=== PATIENT | male | born 2000 | race Caucasian/White ===

== ENCOUNTER 2022-10-26 19:04 | Inpatient (IN) ==
[2022-10-26] MEDS ORDERED: ONDANSETRON INJ 2 MG/ML 2 ML VIAL IV STA ×2 (21:41→22:57)
[2022-10-26 22:01] LABS: Hematocrit (blood only) 51.9 % (42.0-52.0); Hemoglobin 18.2 g/dl (14.0-18.0); Mean Corpuscular Hemoglobin 31.7 pg (25.0-34.0); Mean Corpuscular Hgb Conc 35.1 g/dL (32.0-36.0); Mean Corpuscular Volume 90.4 fL (80.0-100.0); Mean Platelet Volume 10.3 fL (9.4-12.4); Platelet Count 177 K/uL (130-400); RDW Coefficient of Variation 12.6 % (11.5-14.5); RDW Standard Deviation 41.6 fL (36.4-46.3); Red Blood Count 5.74 M/uL (4.70-6.10); White Blood Count 22.42 K/ul (4.8-10.8)
[2022-10-26 22:23] LABS: Basophils # (auto) 0.02 K/uL (0-0.2); Basophils % (auto) 0.1 %; Immature Granulocytes # (auto) 0.21 K/uL (0.01-0.20); Immature Granulocytes % (auto) 0.9 %; Lymphocytes # (auto) 0.45 K/uL (1.2-3.4); Monocytes # (auto) 0.76 K/uL (0.11-0.59); Monocytes % (auto) 3.4 %; Neutrophils # (auto) 20.98 K/uL (1.40-6.50); Neutrophils % (auto) 93.6 %
[2022-10-26 22:42] LABS: Alanine Aminotransferase 23 U/L (7-52); Albumin Level 4.5 gm/dl (3.4-5.0); Alkaline Phosphatase 66 U/L (34-104); BUN Creatinine Ratio 15.7 (10-20); Bilirubin,Total 1.5 mg/dl (0.2-1.0); Blood Urea Nitrogen 24 mg/dl (6-23); Calcium 9.9 mg/dl (8.6-10.3); Carbon Dioxide 25 mmol/L (21-32); Chloride 92 mmol/L (98-107); Est GFR (African American) 74.8 ml/min; Est GFR (Non-African American) 64.5 ml/min; Globulin 4.4 gm/dl (2.5-4.0); Glucose 158 mg/dl (70-99(Fasting)); Lipase 11 U/L (11-82); Total Protein 8.9 gm/dl (6.0-8.3)
[2022-10-26] MEDS ORDERED: FAMOTIDINE 20MG IV PUSH 20 MG/5 ML SYR IV STA (22:57)
[2022-10-26] MEDS ORDERED: SODIUM CHLORIDE 0.9% 1000ML 1,000 ML IV ONE ×2 (22:57→22:58)
[2022-10-26] MEDS ORDERED: OPTIRAY 350 100ml IV ONE (23:23)
--- NOTE | 2022-10-26 23:25 | Emergency Department Note ---
History of Present Illness General Chief complaint: Abdominal Pain Stated complaint: NAUSEA,VOMITING BLOOD,ABDOMINAL PAIN Time Seen by Provider: 10/26/22 22:35 History of Present Illness This 22-year-old student presents to the ER complaint of nausea vomiting and abdominal pain for the past day. Patient denies chest pain, dyspnea, fevers, diarrhea, cough, congestion. He states he had a little bit of red stringy blood in it but no cupfuls. No prior abdominal surgeries. Home Medications Medication Instructions Recorded Confirmed Type methylphenidate HCl 54 mg 54 mg PO QAM 10/26/22 10/26/22 History tablet,extended release 24 hr (Concerta) omeprazole magnesium 20 mg 20 mg PO QAM 10/26/22 10/26/22 History tablet,delayed release Allergies Allergy/AdvReac Type Severity Reaction Status Date / Time pollen extracts Allergy Intermediate sneezy,whee Verified 10/26/22 23:02 zy Past Med/Surg History Social History Smoking Status: Never smoker Preferred Language: Qatari Feels Safe at Home: Yes Review of Systems A total of 10 systems reviewed and were otherwise negative Physical Exam Vital Signs Vital Signs - 24 hr 10/26/22 19:30 10/26/22 23:41 10/27/22 03:00 Temperature 36.3 C L Temperature Source Temporal Artery Scan Pulse Rate 121 H Pulse Rate [Finger] 100 H 100 H Respiratory Rate 19 16 16 Respiratory Effort / Characteristics Non-Labored Non-Labored Respiratory Depth Normal Blood Pressure 126/80 Blood Pressure [Right Arm] 129/82 127/88 Blood Pressure Mean 95 Blood Pressure Mean [Right Arm] 97 101 Pulse Oximetry 96 99 96 Oxygen Delivery Method Room Air Room Air Sepsis Recent Fever Within 48 Hours No Sepsis New/Unexplained Change in Mental Status N/A Sepsis Action Taken by Nursing No Action Required VITALS: Vitals are noted on the nurse's note and reviewed by myself. Vital signs reviewed GENERAL: Pleasant gentleman, in no acute distress, nondiaphoretic, well- developed well-nourished. SKIN: The skin was without rashes, erythema, edema, or bruising. There is no tenting of the skin. Capillary reflex less than 2 seconds. HEAD: Normocephalic atraumatic. EARS: External auditory canals clear, tympanic membranes pearly kumar without erythema or effusion bilaterally. EYES: Pupils equal round and reactive to light and accommodation. Conjunctivae without injection, sclerae without icterus. Extraocular movements intact. NOSE: Patent, turbinates without inflammation or discharge. MOUTH: Mucous membranes mildly dry. Moist. Pharynx without erythema or exudate. Uvula midline. Airway patent. Tongue does not deviate. NECK: Supple without nuchal rigidity. No lymphadenopathy. No thyromegaly. Cervical spine is nontender. No JVD. HEART: Regular rate and rhythm LUNGS: Clear to auscultation bilaterally without wheezes, rales or rhonchi. No retractions or accessory muscle use. ABDOMEN: Positive bowel sounds x 4. Normal tympanic percussion. Soft, tender lower abdomen, without masses or organomegaly. Hightower sign negative. No guarding or rebound tenderness. No CVA tenderness MUSCULOSKELETAL: No muscle atrophy, erythema, or edema noted. NEURO: Patient was alert and oriented to person place and time. Normal sensation to light and sharp touch. No focal neurological deficits. Course Administered Medications Discontinued Medications Sodium Chloride (Nss 1000ml) 1,000 mls @ 999 mls/hr IV .Q1H1M ONE Stop: 10/26/22 23:57 Last Infusion: 10/27/22 00:49 Dose: 0 mls/hr Documented By: Admin: 10/26/22 23:11 Dose: 999 mls/hr Documented By: RAY Famotidine (Pepcid 20mg Iv Push) 20 mg in 5 mls @ 2.5 mls/min IV NOW STA Stop: 10/26/22 22:58 Last Admin: 10/26/22 23:11 Dose: 2.5 mls/min Documented By: RAY Sodium Chloride (Nss 1000ml) 1,000 mls @ 999 mls/hr IV .Q1H1M ONE Stop: 10/26/22 23:58 Last Infusion: 10/27/22 01:51 Dose: 0 mls/hr Documented By: Admin: 10/27/22 00:49 Dose: 999 mls/hr Documented By: RAY Ioversol (Optiray 350 100ml) 100 ml IV ONCE ONE Stop: 10/26/22 23:24 Last Admin: 10/26/22 23:23 Dose: 86 ml Documented By: MACIEJ Lorazepam (Lorazepam 2 Mg/1 Ml Vial) 1 mg IV NOW STA Stop: 10/27/22 01:50 Last Admin: 10/27/22 01:55 Dose: 1 mg Documented By: RAY Ondansetron HCl (Ondansetron Inj 2 Mg/Ml 2 Ml Vial) 4 mg IV NOW STA Stop: 10/26/22 21:42 Last Admin: 10/26/22 21:47 Dose: 4 mg Documented By: GENE Ondansetron HCl (Ondansetron Inj 2 Mg/Ml 2 Ml Vial) 4 mg IV NOW STA Stop: 10/26/22 22:58 Last Admin: 10/26/22 23:11 Dose: 4 mg Documented By: RAY Medical Decision Making Medical Records Attestation: I reviewed the patient's medical records. Home Medications Current Medication List: was personally reviewed by me Laboratory Data Attestation: I reviewed the patient's lab results. 10/26/22 21:35 10/26/22 21:35 Lab Results 10/26/22 10/26/22 10/26/22 Range/Units 21:35 21:35 22:56 WBC 22.42 H (4.8-10.8) K/ul RBC 5.74 (4.70-6.10) M/uL Hgb 18.2 H (14.0-18.0) g/dl Hct 51.9 (42.0-52.0) % MCV 90.4 (80.0-100.0) fL MCH 31.7 (25.0-34.0) pg MCHC 35.1 (32.0-36.0) g/dL RDW Std Deviation 41.6 (36.4-46.3) fL RDW Coeff of [place] 12.6 (11.5-14.5) % Plt Count 177 (130-400) K/uL MPV 10.3 (9.4-12.4) fL Immature Gran % (Auto) 0.9 % Neut % (Auto) 93.6 % Lymph % (Auto) 2.0 % [place] % (Auto) 3.4 % Eos % (Auto) 0.0 % Baso % (Auto) 0.1 % Neut # (Auto) 20.98 H (1.40-6.50) K/uL Lymph # (Auto) 0.45 L (1.2-3.4) K/uL Liberty # (Auto) 0.76 H (0.11-0.59) K/uL Eos # (Auto) 0.00 (0-0.50) K/uL Baso # (Auto) 0.02 (0-0.2) K/uL Immature Gran # (Auto) 0.21 H (0.01-0.20) K/uL Sodium TNP 133 L Potassium TNP 4.2 Chloride 92 L (98-107) mmol/L Carbon Dioxide 25 (21-32) mmol/L Anion Gap TNP BUN 24 H (6-23) mg/dl Creatinine 1.53 H (0.6-1.4) mg/dl Est Cr Clr Drug Dosing 82.0 ml/min Est GFR ( Amer) 74.8 ml/min Est GFR (Non-Af Amer) 64.5 ml/min BUN/Creatinine Ratio 15.7 (10-20) Glucose 158 H (70-99(Fasting)) mg/dl Calcium 9.9 (8.6-10.3) mg/dl Total Bilirubin 1.5 H (0.2-1.0) mg/dl AST TNP 24 ALT 23 (7-52) U/L Alkaline Phosphatase 66 (34-104) U/L Total Protein 8.9 H (6.0-8.3) gm/dl Albumin 4.5 (3.4-5.0) gm/dl Globulin 4.4 H (2.5-4.0) gm/dl Albumin/Globulin Ratio 1.0 (0.9-2) Lipase 11 (11-82) U/L Adenovirus (PCR) (NotDetected) B. pertussis DNA (PCR) (NotDetected) B.parapertussis DNA PCR (NotDetected) C. pneumoniae DNA (PCR) (NotDetected) Coronavirus OC43 (PCR) (NotDetected) Coronavirus HKU1 (PCR) (NotDetected) Coronavirus 229E (PCR) (NotDetected) SARS-CoV-2 (PCR) (NotDetected) Coronavirus NL63 (PCR) (NotDetected) Human Metapneumovir PCR (NotDetected) Influenza Type A (PCR) (NotDetected) Influenza Type B (PCR) (NotDetected) M. pneumoniae (PCR) (NotDetected) Parainfluenza 1 (PCR) (NotDetected) Parainfluenza 2 (PCR) (NotDetected) Parainfluenza 3 (PCR) (NotDetected) Parainfluenza 4 (PCR) (NotDetected) RSV (PCR) (NotDetected) Entero/Rhino (PCR) (NotDetected) 10/26/22 Range/Units 23:13 WBC (4.8-10.8) K/ul RBC (4.70-6.10) M/uL Hgb (14.0-18.0) g/dl Hct (42.0-52.0) % MCV (80.0-100.0) fL MCH (25.0-34.0) pg MCHC (32.0-36.0) g/dL RDW Std Deviation (36.4-46.3) fL RDW Coeff of [place] (11.5-14.5) % Plt Count (130-400) K/uL MPV (9.4-12.4) fL Immature Gran % (Auto) % Neut % (Auto) % Lymph % (Auto) % Liberty % (Auto) % Eos % (Auto) % Baso % (Auto) % Neut # (Auto) (1.40-6.50) K/uL Lymph # (Auto) (1.2-3.4) K/uL Liberty # (Auto) (0.11-0.59) K/uL Eos # (Auto) (0-0.50) K/uL Baso # (Auto) (0-0.2) K/uL Immature Gran # (Auto) (0.01-0.20) K/uL Sodium Potassium Chloride (98-107) mmol/L Carbon Dioxide (21-32) mmol/L Anion Gap BUN (6-23) mg/dl Creatinine (0.6-1.4) mg/dl Est Cr Clr Drug Dosing ml/min Est GFR ( Amer) ml/min Est GFR (Non-Af Amer) ml/min BUN/Creatinine Ratio (10-20) Glucose (70-99(Fasting)) mg/dl Calcium (8.6-10.3) mg/dl Total Bilirubin (0.2-1.0) mg/dl AST ALT (7-52) U/L Alkaline Phosphatase (34-104) U/L Total Protein (6.0-8.3) gm/dl Albumin (3.4-5.0) gm/dl Globulin (2.5-4.0) gm/dl Albumin/Globulin Ratio (0.9-2) Lipase (11-82) U/L Adenovirus (PCR) Not Detected (NotDetected) B. pertussis DNA (PCR) Not Detected (NotDetected) B.parapertussis DNA PCR Not Detected (NotDetected) C. pneumoniae DNA (PCR) Not Detected (NotDetected) Coronavirus OC43 (PCR) Not Detected (NotDetected) Coronavirus HKU1 (PCR) Not Detected (NotDetected) Coronavirus 229E (PCR) Not Detected (NotDetected) SARS-CoV-2 (PCR) Not Detected (NotDetected) Coronavirus NL63 (PCR) Not Detected (NotDetected) Human Metapneumovir PCR Not Detected (NotDetected) Influenza Type A (PCR) Not Detected (NotDetected) Influenza Type B (PCR) Not Detected (NotDetected) M. pneumoniae (PCR) Not Detected (NotDetected) Parainfluenza 1 (PCR) Not Detected (NotDetected) Parainfluenza 2 (PCR) Not Detected (NotDetected) Parainfluenza 3 (PCR) Not Detected (NotDetected) Parainfluenza 4 (PCR) Not Detected (NotDetected) RSV (PCR) Not Detected (NotDetected) Entero/Rhino (PCR) DETECTED A* (NotDetected) Imaging Data Attestation: I personally reviewed and interpreted this imaging study as follows: Radiologist's Impression: Abdomen/Pelvis CT 10/26/22 22:57 Exam(s): CT ABDOMEN + PELVIS With Contrast IV Amt: 86 ML OPTIRAY 350 EXAM: CT Abdomen and Pelvis With Intravenous Contrast CLINICAL HISTORY: rlq pain. TECHNIQUE: Axial computed tomography images of the abdomen and pelvis with intravenous contrast. CTDI is 7.04 mGy and DLP is 373.95 mGy-cm. Automated exposure control was utilized for the study. A dose lowering technique was utilized adhering to the principles of ALARA. CONTRAST: Patient received 86 ML OPTIRAY 350 of IV contrast COMPARISON: No relevant prior studies available. FINDINGS: Lung bases: Unremarkable. No mass. No consolidation. ABDOMEN: Liver: Hepatic steatosis. Gallbladder and bile ducts: Unremarkable. No calcified stones. No ductal dilation. Pancreas: Unremarkable. No mass. No ductal dilation. Spleen: Unremarkable. No splenomegaly. Adrenals: Unremarkable. No mass. Kidneys and ureters: Unremarkable. No solid mass. No hydronephrosis. Stomach and bowel: There is abnormal mucosal thickening of the stomach, despite partial decompression. No evidence for gastric obstruction. In addition, there is abnormal mucosal thickening of the colon which is predominantly decompressed. No evidence for bowel obstruction. PELVIS: Appendix: 6 mm appendicolith noted in the proximal appendix the appendix distal to the appendicolith is within normal limits measuring up to 6 mm. No obvious periappendiceal fat stranding, accounting for respiratory artifact in this region. Bladder: Unremarkable. No mass. Reproductive: Unremarkable as visualized. ABDOMEN and PELVIS: Intraperitoneal space: Unremarkable. No free air. No significant fluid collection. Bones/joints: No acute fracture. No dislocation. Soft tissues: Unremarkable. Vasculature: Unremarkable. No abdominal aortic aneurysm. Lymph nodes: Unremarkable. No enlarged lymph nodes. IMPRESSION: 1. 6 mm appendicolith noted in the proximal appendix the appendix distal to the appendicolith is within normal limits measuring up to 6 mm. No obvious periappendiceal fat stranding, accounting for respiratory artifact in this region. Suspect normal variation. Please correlate with clinical symptoms. 2. There is abnormal mucosal thickening of the stomach, despite partial decompression. No evidence for gastric obstruction. Findings are most consistent with gastritis. 3. In addition, there is abnormal mucosal thickening of the colon which is predominantly decompressed. No evidence for bowel obstruction. Coexisting inflammatory infectious colitis are suspected. No free intraperitoneal fluid or pneumoperitoneum. Electronically signed by: Allen Russo MD 10/27/22 01:01 AM [facility] Narrative Prior records/ancillary studies reviewed. Triage Nursing notes reviewed. Additional history obtained from nursing The patient's history was concerning for nausea, vomiting and abdominal pain. Differential diagnosis: Etiologies such as gastroenteritis, food borne illness, infections, appen dicitis, diverticulitis, inflammatory bowel disease, obstruction, GI bleed, biliary pathology, as well as others were entertained. Physical examination findings: As above. Abdominal examination revealed tender lower abdomen. Vital signs reviewed and revealed mildly tachycardic. ER treatment provided: IV hydration 2 L NSS. Zofran and Pepcid, Protonix and Ativan were ordered On reassessment the patient felt better. Patient was tolerating p.o. intake. Diagnostics interpretation by me: The labs Independently Interpreted by myself revealed leukocytosis Minimally elevated creatinine Imaging studies: CT was reviewed and surgery did evaluate the patient states patient has not had appendicitis and recommends medical admission Consultation: A consultation was placed with the hospitalist. The case was discussed and diagnostics were reviewed. The patient was evaluated in the ER for further treatment. This appears to be consistent with nausea and vomiting with hematemesis acute kidney injury dehydration with colitis. Surgery and medicine were consulted. They did evaluate the patient. Patient will be admitted to the medical service. Patient is agreeable. Labs and diagnostics were independent interpreted by myself. Patient was medicated as above. By the evaluation outlined above emergent etiologies such as appendicitis, diverticulitis, obstruction, cardiac sources, mesenteric ischemia, aortic pathology, renal colic, PUD, biliary pathology, UTI, as well as others were deemed relatively unlikely. The pt informed about the findings as listed above. All questions were answered and pleased with the treatment. The chart was completed utilizing [employer] Speech voice recognition software. Grammatical errors, random word insertions, pronoun errors, and incomplete sentences are an occassional consequence of this system due to software limitations, ambient noise, and hardware issues. Any formal questions or concerns about the content, text, or information contained within the body of this dictation should be directly addressed to the physician advertising sales assistant for clarification. Impression & Plan Acute kidney injury, Dehydration, Colitis, Hematemesis Discharge Plan Visit Data Chief Complaint: Abdominal Pain Stated Complaint: NAUSEA,VOMITING BLOOD,ABDOMINAL PAIN ED Provider: Seth Cole. ED Midlevel Provider: Mariola Obando Discharge Problem: Acute kidney injury, Dehydration, Colitis, Hematemesis Patient Disposition: Admitted As Inpatient Condition: Good Forms Stand Alone Forms: My [facility] Prescriptions Prescriptions: No Action methylphenidate HCl [Concerta] 54 mg Tablet Extended Release 24hr 54 mg PO QAM omeprazole magnesium 20 mg Tablet,Delayed Release (Dr/Ec) 20 mg PO QAM Referrals Referrals: PCP,NO [Physician] -
[2022-10-26 23:40] LABS: Potassium 4.2 mmol/L (3.5-5.1)
[2022-10-27 00:09] LABS: Adenovirus PCR Not Detected (NotDetected); Bordetella parapertussis PCR Not Detected (NotDetected); Bordetella pertussis PCR Not Detected (NotDetected); Chlamydia pneumoniae PCR Not Detected (NotDetected); Coronavirus 229E PCR Not Detected (NotDetected); Coronavirus CoV-2 (COVID19)PCR Not Detected (NotDetected); Coronavirus HKU1 PCR Not Detected (NotDetected); Coronavirus NL63 PCR Not Detected (NotDetected); Coronavirus OC43PCR Not Detected (NotDetected); Human Metapneumovirus PCR Not Detected (NotDetected); Influenza A PCR Not Detected (NotDetected); Influenza B PCR Not Detected (NotDetected); Mycoplasma pneumoniae PCR Not Detected (NotDetected); Parainfluenza Virus 1 PCR Not Detected (NotDetected); Parainfluenza Virus 2 PCR Not Detected (NotDetected); Parainfluenza Virus 3 PCR Not Detected (NotDetected); Parainfluenza Virus 4 PCR Not Detected (NotDetected); Respiratory Syncytial VirusPCR Not Detected (NotDetected)
[2022-10-27 00:10] LABS: Rhinovirus/Enterovirus PCR DETECTED (NotDetected)
--- NOTE | 2022-10-27 01:02 | CT Scan Report ---
Exam(s): CT ABDOMEN + PELVIS With Contrast IV Amt: 86 ML OPTIRAY 350 EXAM: CT Abdomen and Pelvis With Intravenous Contrast CLINICAL HISTORY: rlq pain. TECHNIQUE: Axial computed tomography images of the abdomen and pelvis with intravenous contrast. CTDI is 7.04 mGy and DLP is 373.95 mGy-cm. Automated exposure control was utilized for the study. A dose lowering technique was utilized adhering to the principles of ALARA. CONTRAST: Patient received 86 ML OPTIRAY 350 of IV contrast COMPARISON: No relevant prior studies available. FINDINGS: Lung bases: Unremarkable. No mass. No consolidation. ABDOMEN: Liver: Hepatic steatosis. Gallbladder and bile ducts: Unremarkable. No calcified stones. No ductal dilation. Pancreas: Unremarkable. No mass. No ductal dilation. Spleen: Unremarkable. No splenomegaly. Adrenals: Unremarkable. No mass. Kidneys and ureters: Unremarkable. No solid mass. No hydronephrosis. Stomach and bowel: There is abnormal mucosal thickening of the stomach, despite partial decompression. No evidence for gastric obstruction. In addition, there is abnormal mucosal thickening of the colon which is predominantly decompressed. No evidence for bowel obstruction. PELVIS: Appendix: 6 mm appendicolith noted in the proximal appendix the appendix distal to the appendicolith is within normal limits measuring up to 6 mm. No obvious periappendiceal fat stranding, accounting for respiratory artifact in this region. Bladder: Unremarkable. No mass. Reproductive: Unremarkable as visualized. ABDOMEN and PELVIS: Intraperitoneal space: Unremarkable. No free air. No significant fluid collection. Bones/joints: No acute fracture. No dislocation. Soft tissues: Unremarkable. Vasculature: Unremarkable. No abdominal aortic aneurysm. Lymph nodes: Unremarkable. No enlarged lymph nodes. IMPRESSION: 1. 6 mm appendicolith noted in the proximal appendix the appendix distal to the appendicolith is within normal limits measuring up to 6 mm. No obvious periappendiceal fat stranding, accounting for respiratory artifact in this region. Suspect normal variation. Please correlate with clinical symptoms. 2. There is abnormal mucosal thickening of the stomach, despite partial decompression. No evidence for gastric obstruction. Findings are most consistent with gastritis. 3. In addition, there is abnormal mucosal thickening of the colon which is predominantly decompressed. No evidence for bowel obstruction. Coexisting inflammatory infectious colitis are suspected. No free intraperitoneal fluid or pneumoperitoneum. Electronically signed by: Allen Russo MD 10/27/22 01:01 AM
[2022-10-27] MEDS ORDERED: LORazepam 2 MG/1 ML VIAL IV STA (01:49)
[2022-10-27] MEDS ORDERED: PANTOprazole 80 MG in DEXTROSE 5% 100 ML IV STA (01:49)
--- NOTE | 2022-10-27 02:05 | Surgery Consultation ---
Date of Consultation October 27, 2022 Assessment & Plan (1) Abdominal pain: General surgery has been asked to evaluate the patient for the possibility of appendicitis due to the appendicolith noted on CT scan. I reviewed the CT scan with my attending physician Dr. Gu. It is unlikely that the patient has appendicitis as there is no periappendiceal fat stranding which would likely be present with a leukocytosis noted on patient's labs. Thus, the appendicolith noted on CT scan is likely an incidental finding. In addition the patient does not have localized tenderness in the right lower quadrant. It does appear that the patient is suffering from a gastritis and possible colitis. In addition the patient has been noted to have some hematemesis. I discussed with the treating clinician in the emergency department and recommended patient be evaluated by the medical service for further evaluation of his gastritis/colitis/hematemesis. Please refer to their evaluation and documentation for further treatment plan. If there is any change in the patient's physical exam or clinical course that would suggest appendicitis we will intervene accordingly. Supervising Physician Co-Signing Physician Notes Case reviewed with Christian Britt overnight, imaging reviewed. 22-year-old male with nausea vomiting and abdominal discomfort. Unremarkable exam, just mild diffuse tenderness. WBC 22. CT with gastritis and possible colitis. Incidental appendicolith with 6 mm appendix with no periappendiceal inflammation. No evidence of appendicitis, would admit to medicine and treat for viral gastroenteritis. History of Present Illness Reason for Consultation: Abdominal pain History of Present Illness This is a 22-year-old male who presented to the emergency department secondary to abdominal pain. The patient notes that his pain began the evening of 10/25/2022. He notes that the pain was located in a bandlike fashion across his lower abdomen. He has had nausea and vomiting since that time. He does note that he has had some blood in his emesis. Patient did not check his temperature but he felt feverish. He notes that the pain is worse with walking and certain other movements. He does not identify any palliative factors other than lying still. As the patient notes that his symptoms are persistent and getting somewhat worse he presented to the emergency department. He denies any prior abdominal surgeries. He notes his last bowel movement was on 10/25/2022. He does note that he is currently being evaluated for irritable bowel syndrome as he has been having frequent and loose bowel movements recently. He does note that he is supposed to have a colonoscopy this summer. Since arrival to the hospital the patient has had labs and imaging which independent reviewed. A CT scan of his abdomen and pelvis showed the patient's appendix contained a 6 mm appendicolith in the proximal appendix. Distal to the appendicolith the appendix appeared to be within normal limits measuring only approximately 6 mm. There is no obvious periappendiceal fat stranding. The patient's stomach demonstrated abnormal mucosal thickening. There is no evidence of gastric outlet obstruction. There is also abnormal mucosal thickening noted of the colon. There is no evidence of bowel obstruction. I nterpreting radiologist felt that this was consistent with gastritis and a inflammatory infectious colitis. There is no intraperitoneal free air and no pneumoperitoneum. The patient's white blood cell count was 22.4. Patient's hemoglobin was 18.2. His hematocrit was normal. Platelet count was noted to be normal. Chemistry profile showed sodium is 133. Potassium is 4.2. BUN and creatinine were 24 and 1.5. Patient's total bilirubin is 1.5 with normal transaminases and a normal alkaline phosphatase. His lipase was nonelevated. Patient did have serologies checked and for numerous viruses which were negative for coronavirus. This was positive for entero-/rhinovirus. At the time of my interview the was in no distress but was examined experiencing nausea and vomiting. Allergies Allergy/AdvReac Type Severity Reaction Status Date / Time pollen extracts Allergy Intermediate sandrine,whee Verified 10/26/22 23:02 zy Home Medications Medication Instructions Recorded Confirmed Type methylphenidate HCl 54 mg 54 mg PO QAM 10/26/22 10/26/22 History tablet,extended release 24 hr (Concerta) omeprazole magnesium 20 mg 20 mg PO QAM 10/26/22 10/26/22 History tablet,delayed release Patient History Social History Smoking Status: Never smoker Hx Alcohol Use: Yes Alcohol type: beer and hard liquor Hx Substance Use: No Preferred Language: Divehi Communication Ability: Effective All Round Butcher Required: No Beliefs That Will Affect Care: None Current Living Situation: Other Current Living Situation Comment: [facility] Feels Safe at Home: Yes Safety Concerns: Feels Safe At This Time Assistive Devices: None Review of Systems Constitutional: + fever (Subjective fever) and + sweats; no chills Eyes: no eye pain Ear, Nose, Mouth, Throat: no hearing loss Respiratory: no cough and no dyspnea Cardiovascular: no chest pain Gastrointestinal: as per Subjective / HPI, + abdominal pain, + nausea, + vomiting and + hematemesis Genitourinary: no dysuria Musculoskeletal: no back pain Integumentary: no rash Neurologic: no localized weakness Physical Exam Constitutional: well developed and well nourished; no acute distress Eyes: no conjunctival abnormality ENMT: Ears: no hearing impairment and no external ear abnormality Oral mucosa appears dry Neck: trachea midline Respiratory: normal respiratory effort; no respiratory distress and no labored breathing No use of accessory muscles. No wheezing Cardiovascular: Rate/Rhythm: regular rate and regular rhythm Gastrointestinal (Abdomen): Patient's abdomen has mild to moderate distention. His abdomen is nonrigid. Bowel sounds are hypoactive. The patient has diffuse tenderness to palpation. Rebound tenderness is noted. Musculoskeletal: No calf tenderness. No lower extremity edema Skin: no rashes Neurologic: moves all extremities Psychiatric: A+Ox3, euthymic affect Results & Data Vital Signs (Past 12 Hours) Vital Signs Temp Pulse Pulse Resp BP BP Pulse Ox 10/26/22 23:41 100 H 16 129/82 99 10/26/22 19:30 36.3 C L 121 H 19 126/80 96 O2 Del Method 10/26/22 23:41 10/26/22 19:30 Room Air PG Care Time/CCT Total # of Minutes Spent Total Time Spent with Patient: Total time spent is greater than 50% in coordination of care (as documented) at patient's floor/unit and/or counseling patient: Coding Level of Care Code 44630 IN/OBS CONSULT LVL 5,80M Diagnoses Abdominal pain R10.9
--- NOTE | 2022-10-27 02:33 | History & Physical Report ---
Date of Service October 27, 2022 Assessment & Plan (1) Abdominal pain: Plan: 22M with no significant PMH who presents with abdominal pain + N/V x2 days. Abdominal pain -Labs on admission: WBC 22.42. Hgb 18.2. Na+ 133, BUN 24, Cr 1.53. T. bili 1.5. Entero/Rhino virus also detected on respiratory panel. -Abnormal mucosal thickening of the stomach consistent with gastritis, abnormal mucosal thickening of colon suspicious of inflammatory colitis. -6mm appendicolith noted in the proximal appendix but did not correlate with clinical symptoms. Suspect artifact. -Suspect infectious process, though inflammatory, ischemic etiology cannot be e xcluded at this time. * Admit to med surg. Made NPO. * mIVF LR @125 mL/hr * GI consult placed. Appreciate recs. * IV Protonix 40 mg bid * IV Zofran 4 mg q4h * Procalcitonin, ESR/CRP, GI PCR panel, KUB all pending. * Trend CMP Code: Full code Dispo: Med-Surg FEN/GI: NPO. LR DVT Prophylaxis: None PT/OT: No Consults: GI, Surgery History of Present Illness Primary Care Provider: [facility] Sam is a 22-year-old male with no past medical history who presents with nausea, vomiting, and lower abdominal pain x2 days. He reports being in his usual state of health beforehand. Abdominal pain worse with movement, hiccups. Denies fever, chills, headache, SOB, chest pain, or diarrhea. Sister endorses hematemesis initially but bilious since. In the ED, vitals were normal. Patient was afebrile. Laboratory work-up was notable for a WBC of 22.4, hemoglobin of 18.2, sodium of 133, BUN of 24, creatinine of 1.53, and entero-/rhinovirus detected on respiratory PCR panel. CT A/P revealed a 6 mm appendicolith in the proximal appendix, thought to be artifact, normal variation, abnormal mucosal thickening of the stomach consistent with gastritis, abnormal mucosal thickening of the colon consistent with inflammatory infectious colitis. No evidence of intraperitoneal fluid or free air in the peritoneum. On admission, sister is also at bedside. They both corroborate HPI, the sister does add that he was on medication for acid reflux few months ago. He continues to endorse lower abdominal pain worsened with inspiration. Allergies Allergy/AdvReac Type Severity Reaction Status Date / Time pollen extracts Allergy Intermediate sneezy,whee Verified 10/26/22 23:02 zy Home Medications Medication Instructions Recorded Confirmed Type methylphenidate HCl 54 mg 54 mg PO QAM 10/26/22 10/26/22 History tablet,extended release 24 hr (Concerta) omeprazole magnesium 20 mg 20 mg PO QAM 10/26/22 10/26/22 History tablet,delayed release Past Med/Surg History Social History Smoking Status: Never smoker Hx Alcohol Use: Yes Alcohol type: beer and hard liquor Hx Substance Use: No Preferred Language: Danish Communication Ability: Effective Automatic Driller And Reamer Required: No Beliefs That Will Affect Care: None Current Living Situation: Other Current Living Situation Comment: [facility] Feels Safe at Home: Yes Safety Concerns: Feels Safe At This Time Assistive Devices: None Review of Systems Review of Systems: All systems reviewed & are unremarkable except as noted in HPI & below Physical Exam Physical Exam: General: No acute distress. HEENT: PERRLA. Normal conjunctiva, anicteric sclera. Oropharynx normal. Respiratory: Normal respiratory effort, CTABL. Cardiovascular: RRR without murmurs, gallops, or rubs. No edema. GI: Soft abdomen with normal bowel sounds heard on auscultation. Diffuse TTP, greatest in LLQ. Neuro: Alert and oriented x3. Results & Data Results & Data Vital Signs (Past 12 Hours) Vital Signs Temp Pulse Pulse Resp BP BP Pulse Ox 10/26/22 23:41 100 H 16 129/82 99 10/26/22 19:30 36.3 C L 121 H 19 126/80 96 O2 Del Method 10/26/22 23:41 10/26/22 19:30 Room Air Supervising Physician Co-Signing Physician Notes Patient seen and examined, chart reviewed, case discussed with Dr. Arauz and I agree with the assessment and plan as documented above. In brief, patient is a 22-year-old male with no significant past medical or surgical history presenting with 2 days of abdominal pain nausea with hematemesis as well as diarrhea (last bowel movement 2 to 3 days ago was diarrhea with some blood). No recent illness. No recent travel, sick contacts, antibiotic use. On physical exam patient is afebrile, tachycardic, blood pressure stable Generalill in appearance. Patient resting. History obtained from sister sitting at bedside Skinwarm, dry, intact, no rashes/lesions HEENTpupils equal round reacting, dry mucous membranes, neck supple Heart+ S1, S2, regular, tachycardic, no murmur/rub/gallops LungsCTA Abdomentender to palpation right and left lower quadrants with some voluntary guarding, You are Labs and images reviewed Assessment/plan: 22-year-old male with no significant past medical or surgical history presenting with lower abdominal pain, nausea, vomiting with hematemesis as well as bloody diarrhea. Suspect infectious gastroenteritisviral versus bacterial Entero-/rhinovirus detected. WBC = 22.42 Admit to medical Follow-up stool PCR Continue IV fluids IV Protonix twice daily Zofran as needed for nausea Monitor CBC GI consult appreciated -Remainder of plan as above Resident Activity Tracking Resident Involvement: Resident Care Provided Care Provided: Adult Hospital Medicine
[2022-10-27] MEDS ORDERED: LACTATED RINGER'S 1,000 ML IV SCH (03:00)
[2022-10-27] MEDS: LACTATED RINGER'S 1,000 ML IV SCH ×3 (04:11→19:47)
[2022-10-27] MEDS ORDERED: Nursing to Pharmacy Communication SCH (04:30)
[2022-10-27] MEDS: PANTOprazole 40 MG in SYRINGE 0 ML IV SCH ×2 (05:20→21:33)
--- NOTE | 2022-10-27 06:55 | Billing Data ---
Date of Service October 27, 2022 Coding Level of Care Code 52137 INT INP/OBS CARE
[2022-10-27 07:38] LABS: Hematocrit (blood only) 43.8 % (42.0-52.0); Hemoglobin 15.6 g/dl (14.0-18.0); Mean Corpuscular Hemoglobin 31.5 pg (25.0-34.0); Mean Corpuscular Hgb Conc 35.6 g/dL (32.0-36.0); Mean Corpuscular Volume 88.3 fL (80.0-100.0); Mean Platelet Volume 10.5 fL (9.4-12.4); Platelet Count 142 K/uL (130-400); RDW Coefficient of Variation 12.6 % (11.5-14.5); RDW Standard Deviation 41.1 fL (36.4-46.3); Red Blood Count 4.96 M/uL (4.70-6.10)
[2022-10-27] MEDS: ONDANSETRON INJ 2 MG/ML 2 ML VIAL IV PRN ×3 (07:49→19:47)
[2022-10-27 08:00] LABS: Appearance Urine Clear (Clear); Blood Urine 2+ (Negative); Color Urine Orange; Glucose Urine UA Negative (Negative); Ketones Urine 1+ (Negative); Leukocyte Esterase Urine Trace (Negative); Nitrite Urine Positive (Negative); Protein Urine 3+ (Negative); RBC Urine Automated 0-4 /hpf (0-4); Specific Gravity Urine > 1.045 (1.000-1.030); Urobilinogen Urine Negative (Negative); pH Urine 5.5 (4.5-7.5)
[2022-10-27 08:08] LABS: Bilirubin Urine 1+ (Negative)
[2022-10-27 08:23] LABS: Basophils # (auto) 0.11 K/uL (0-0.2); Basophils % (auto) 0.7 %; Eosinophils # (auto) 0.01 K/uL (0-0.50); Eosinophils % (auto) 0.1 %; Immature Granulocytes # (auto) 0.11 K/uL (0.01-0.20); Immature Granulocytes % (auto) 0.7 %; Lymphocytes # (auto) 0.26 K/uL (1.2-3.4); Lymphocytes % (auto) 1.6 %; Monocytes # (auto) 0.52 K/uL (0.11-0.59); Monocytes % (auto) 3.3 %; Neutrophils # (auto) 14.79 K/uL (1.40-6.50); Neutrophils % (auto) 93.6 %
[2022-10-27 08:36] LABS: Bacteria Urine Automated 1+ (Negative)
[2022-10-27] MEDS ORDERED: PANTOprazole 40 MG in SYRINGE 0 ML IV SCH (09:00)
--- NOTE | 2022-10-27 09:04 | XRay Report ---
KUB HISTORY: Acute generalized abdominal pain with nausea and vomiting abdominal pain COMPARISON: CT abdomen and pelvis 10/26/2022 FINDINGS: Nonobstructive bowel gas pattern. Contrast noted within the urinary bladder with contrast o pacified renal parenchyma.. No renal calculi. No ureteral calculi. No pneumoperitoneum or pneumatosis . No fracture. IMPRESSION: 1. Nonobstructive bowel gas pattern. 2. There is contrast within the urinary bladder and kidneys secondary to the contrast enhanced exam o btained 9 hours earlier. Correlate with laboratory analysis to exclude decreased renal function. ACT 112: Negative or not required by law. The above report was generated using voice recognition software. It may contain grammatical, syntax o r spelling errors. Electronically signed by: Sandoval Sin M.D. 10/27/2022 8:48 AM
--- NOTE | 2022-10-27 09:12 | Gastrointestinal Consultation ---
Date of Consultation October 27, 2022 Assessment & Plan (1) Abdominal pain: (2) Colitis: Plan I discussed case with Dr. Arauz who helped advise on plan. At this time, we suspect that symptoms are viral in nature. wbc has improved. hgb stable. - continue with protonix 40mg IV BID. - continue with zofran 4mg IV every 4 hours as needed for nausea/vomiting. - okay to advance diet as tolerated from a GI standpoint. - no plan for inpatient endoscopic evaluation at this time. He can follow up as an outpatient. Supervising Physician Co-Signing Physician Notes Agree with BETO Verduzco as above Abd: Soft, NT, ND, +BS Continue current therapy and supportive care History of Present Illness Reason for Consultation: Abdominal pain Requesting Physician: Ramesh Arauz MD Attending Physician: Nils Fuentes DO History of Present Illness Patient is a 22 year old male who presented to the ED yesterday with complaints of nausea, vomiting, and abdominal pain that started on 10/25/22. He tells me that initially when symptoms started he did have some episodes of diarrhea with blood on the toilet tissue but this resolved on 10/25/22 and he has not had a bowel movement since that time. He did however have continued nausea, vomiting and diffuse abdominal pain. Pain rated 7.5/10. He does admit that initially he did have some blood in his emesis that was minimal but he tells me that he also had a nosebleed at that time as well. He was unable to tolerate oral intake so he came to the ER for evaluation. Since admission he tells me he has had 4 more episodes of emesis. He tells me he still has some slight blood tinge to the emesis. He admits to feeling slightly better since admission. Surgery had seen patient and felt appendicolith was incidental. He does admit to a history of heartburn in the past but he tells me this is usually well controlled on omeprazole 20mg once daily. Work up on 10/26/22 revealed wbc 22.42, hgb 18.2, hct 51.9, platelets 177, sodium 133, potassium 4.2, BUN 24, creatinine 1.53, glucose 158, t bili 1.5, ast 24, alt 23, alk phos 66, lipase 11. labs did reveal positive enterovirus/rhinovirus. CT abd/pelvis shown 6mm appendicolith that was suspected to be normal variation, abnormal mucosal thickening of stomach consistent with gastritis. abnormal mucosal thickening of the colon with suspected inflammatory infectious colitis. he tells me he has not seen GI in the past. never had colonoscopy or EGD. Allergies Allergy/AdvReac Type Severity Reaction Status Date / Time pollen extracts Allergy Intermediate sneezy,whee Verified 10/26/22 23:02 zy Home Medications Medication Instructions Recorded Confirmed Type methylphenidate HCl 54 mg 54 mg PO QAM 10/26/22 10/26/22 History tablet,extended release 24 hr (Concerta) omeprazole magnesium 20 mg 20 mg PO QAM 10/26/22 10/26/22 History tablet,delayed release Patient History Medical History (Updated 10/27/22 @ 14:38 by Seth Gu DO, FACS) Appendicolith Viral gastroenteritis Social History Smoking Status: Never smoker Hx Alcohol Use: Yes Alcohol type: beer and hard liquor Hx Substance Use: No Preferred Language: [place] Communication Ability: Effective Seconds Handler Required: No Beliefs That Will Affect Care: None Current Living Situation: Other Current Living Situation Comment: RO[facility]MAT[facility] Feels Safe at Home: Yes Safety Concerns: Feels Safe At This Time Assistive Devices: None Review of Systems Review of Systems: All systems reviewed & are unremarkable except as noted in HPI & below Constitutional: + fever, + chills, + sweats and + fatigue Physical Exam Constitutional: WD/WN, vitals as above Respiratory: normal respiratory effort, lungs clear to auscultation Cardiovascular: RRR, no murmur, no edema Gastrointestinal (Abdomen): mild diffuse tenderness, no guarding, soft. hypoactive bowel sounds. Skin: no rashes, warm and dry Psychiatric: Orientation: alert and oriented x 3 Affect: euthymic affect Results & Data Vital Signs (Past 12 Hours) Vital Signs Temp Pulse Resp BP Pulse Ox O2 Del Method 10/27/22 07:24 100.6 F H 115 H 16 152/88 H 96 Room Air 10/27/22 03:30 99.1 F 99 H 16 130/85 98 Room Air 10/27/22 03:00 100 H 16 127/88 96 Room Air 10/26/22 23:41 100 H 16 129/82 99 PG Care Time/CCT Total # of Minutes Spent Total Time Spent with Patient: Total time spent is greater than 50% in coordination of care (as documented) at patient's floor/unit and/or counseling patient: Coding Level of Care Code 86975 IN/OBS CONSULT LVL 3,45M Diagnoses Abdominal pain R10.9 Colitis K52.9 Time Spent (min) 50
[2022-10-27 10:09] LABS: Albumin Globulin Ratio 1.1 (0.9-2); Albumin Level 3.6 gm/dl (3.4-5.0); BUN Creatinine Ratio 15.2 (10-20); Bilirubin,Total 1.2 mg/dl (0.2-1.0); C Reactive Protein 30.97 mg/dl (0-0.5); Calcium 8.8 mg/dl (8.6-10.3); Creatinine Clr Calc Pharmacy 70.5 ml/min; Est GFR (African American) 62.3 ml/min; Est GFR (Non-African American) 53.7 ml/min; Globulin 3.4 gm/dl (2.5-4.0); Potassium 3.7 mmol/L (3.5-5.1)
[2022-10-27] MEDS: ACETAMINOPHEN 1,000 MG/100 ML VIAL IV PRN ×2 (10:48→21:41)
--- NOTE | 2022-10-27 10:50 | Electrocardiogram Report ---
Test Reason : Blood Pressure : / mmHG Vent. Rate : 120 BPM Atrial Rate : 120 BPM P-R Int : 122 ms QRS Dur : 080 ms QT Int : 312 ms P-R-T Axes : 081 069 012 degrees QTc Int : 440 ms Sinus tachycardia Biatrial enlargement Abnormal ECG No previous ECGs available Confirmed by Soto Oleary ([id number]) on 10/27/2022 10:50:09 AM Referred By: REFERRED SELF Confirmed By:Parmjit Oleary
[2022-10-27] MEDS ORDERED: LACTATED RINGER'S 1,000 ML IV ONE (11:06)
--- NOTE | 2022-10-27 14:00 | Hospitalist Progress Note ---
Date of Service October 27, 2022 Assessment & Plan (1) Abdominal pain: Plan: 22M with no significant PMH who presents with abdominal pain + N/V x2 days. Abdominal pain -Labs on admission: WBC 22.42. Hgb 18.2. Na+ 133, BUN 24, Cr 1.53. T. bili 1.5. Entero/Rhino virus also detected on respiratory panel. -Abnormal mucosal thickening of the stomach consistent with gastritis, abnormal mucosal thickening of colon suspicious of inflammatory colitis. -6mm appendicolith noted in the proximal appendix but did not correlate with clinical symptoms. Suspect artifact. -Suspect infectious process, though inflammatory, ischemic etiology cannot be e xcluded at this time. * Admit to med surg. Made NPO. * mIVF LR @125 mL/hr * GI consult placed. Appreciate recs. * IV Protonix 40 mg bid * IV Zofran 4 mg q4h * Procalcitonin elevated (61), ESR/CRP (elevated), GI PCR panel (enterovirus +), KUB all pending (large stool volume, otherwise unremakable) * Trend CMP - Patient SIRS + with possible Urinary source (cultures pending) * Urinalysis positive on admission: 3+ protein, 2+ blood, + nitrites, 5-10 WBC, 1+ bacteria * Start Rocephin 2 g q24H, will re-image and broadened coverage if not improved by AM * Repeat ESR/CRP in AM * STAT Procal, CBC, CMP, and blood cultures * Continue IV hydration at 125 ml/hr * Continue IV Tylenol and PO Motrin, clear liquid diet as tolerated - Gastritis/Colitis possible a/w enterovirus infection, clinical picture remains inconsistent given patient's elevated ESR/CRP/ProCal - Surgery recommending against management of appendicolith, notes findings more consistent with gastritis/colitis, unlikely appendicitis - GI recommending acid suppression and advancing diet as tolerated Code: Full code Dispo: Med-Surg FEN/GI: Clears. LR @ 150 ml/hr DVT Prophylaxis: None, ambulation as tollerated PT/OT: No Consults: GI, Surgery (2) SIRS (systemic inflammatory response syndrome): (3) Viral gastroenteritis: Admission and Anticipated Discharge Date Admission Date: October 27, 2022 Supervising Physician Co-Signing Physician Notes ATTESTATION I also saw the patient and confirmed davis portions of the history and exam. I agree with the impression and plan in the resident documentation, and as summarized below. Upon our midmorning exam, the patient reports feeling somewhat better; actually slightly hungry. Sister at bedside. EXAM 131/86, 89, 16, 37.5, 90% on room air Pleasant alert. His voice sounds slightly hoarse Throat is erythematous, no exudate appreciated Neck is supple Heart is regular; respirations are nonlabored The abdomen is soft, minimal tenderness, no rebound DATA Labs WBC 15.8, hemoglobin 15.6 ESR 66 Sodium 135, potassium 3.7, BUN 27, creatinine 1.78 CRP 30.97 Procalcitonin 61.56 PCR positive for enterovirus/rhinovirus Imaging CT scan of the abdomen and pelvis 10/26/2022 shows a 6 mm appendicolith, without associated inflammatory change. Also noted is thickening of the stomach mucosa, consistent with gastritis. Also noted thickening of the colon suggestive of infectious colitis. KUB showed nonobstructive bowel gas pattern. He did note contrast within the urinary bladder and kidneys secondary to CT scan 9 hours previous. Micro Urine culture collected today is pending IMPRESSION & PLAN Abdominal pain, presumed secondary to enterovirus Acute renal failure Surgical and gastroenterology consultation reviewed Fortunately the patient is feeling better this morning; clinical picture consistent with a viral etiology, however inflammatory markers significantly elevated (question more so than would expect for enterovirus)? Increase IV fluids; monitor BMP, urine output Slowly advance diet Urine cultures pending; if clinically worsening, will start empiric antibiotics Trend inflammatory markers Additional per resident documentation The patient is reevaluated this afternoon. While he reported feeling better earlier today, he feels he generally feels worse this afternoon. Really nonspecific -generalized achiness; he describes abdominal pain, although when he indicates the area of discomfort, its more bilateral flank area, and we discussed that this may simply be sore musculature from vomiting. Upon reexam, he remains alert and oriented. No fever at present. Heart is regular but slightly tachycardic, auscultated rate mid 80s. Lungs are clear with nonlabored respirations The abdomen is soft with only minimal, generalized tenderness. No rebound. No focal areas of increased tenderness. No CVA tenderness on either side. Updated plan Exam remains nonfocal, but elevated procalcitonin and inflammatory markers are concerning, disproportionate to exam, and higher than would expect for enterovirus alone. Repeat IV bolus Repeat CBC, procalcitonin Check blood cultures Start Rocephin 2 g IV Yusuf Vargas is a 22M who presented with nausea, hematemesis (scant), and abdominal pain. Patient notes that he has been constipated since Wednesday and has just urinated for the first time since Wednesday (small amount, dark kayla). Patient notes that he feels unchanged since admission, he continues to have significant nausea and diffuse abdominal pain. Patient endorses fevers and chills, w/o diaphoresis. Patient denies recent sick contacts or preceding URI symptoms. He does note mild pain in his throat and ongoing hoarse voice. Patient's sister was at bedside during conversation and examination, per patient's request. 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 Review of Systems Review of Systems: As per HPI Physical Exam Physical Exam: General: Acutely uncomfortable (a/w emesis), non-toxic, pleasant, conversive w/ hoarse voice HEENT: PERRLA. Normal conjunctiva, anicteric sclera. Significant oropharyngeal erythema w/o exudate. Respiratory: Normal respiratory effort, CTABL, no wheezing/rhonchi/rales Cardiovascular: RRR without murmurs, gallops, or rubs. No edema. GI: Soft abdomen, normoactive bowel sounds, diffuse TTP throughout, CVA tenderness on right Neuro: Alert and oriented x3. Results & Data Results & Data Vital Signs (Past 12 Hours) Vital Signs Temp Pulse Resp BP Pulse Ox O2 Del Method 10/27/22 12:01 37.5 C 89 16 131/86 98 Room Air 10/27/22 10:00 38.2 C H 112 H 18 137/86 98 Room Air 10/27/22 07:24 38.1 C H 115 H 16 152/88 H 96 Room Air 10/27/22 03:30 37.3 C 99 H 16 130/85 98 Room Air 10/27/22 03:00 100 H 16 127/88 96 Room Air Resident Activity Tracking Resident Involvement: Resident Care Provided Care Provided: Adult Hospital Medicine
--- NOTE | 2022-10-27 14:38 | Surgery Progress Note ---
Date of Service October 27, 2022 Assessment & Plan (1) Viral gastroenteritis: Plan: Likely viral etiology for gastroenteritis, appendicolith incidental finding. Did discuss that this puts him at increased risk for appendicitis in the future, but no surgical intervention at this time. No surgical indication at this time Management per medicine team and GI Surgery will sign off, call with questions or concerns (2) Appendicolith: Admission and Anticipated Discharge Date Admission Date: October 27, 2022 Subjective 22-year-old male admitted with gastroenteritis, likely viral, with incidental appendicolith but normal appendix. He is feeling better, not having as much nausea or vomiting. Physical Exam Constitutional: WD/WN, vitals as above Gastrointestinal (Abdomen): Percussion/Palpation: + abdomen tender (Mild diffuse tenderness) and abdomen soft; no guarding and abdomen not rigid Results & Data Vital Signs (Past 12 Hours) Vital Signs Temp Pulse Resp BP Pulse Ox O2 Del Method 10/27/22 12:01 37.5 C 89 16 131/86 98 Room Air 10/27/22 10:00 38.2 C H 112 H 18 137/86 98 Room Air 10/27/22 07:24 38.1 C H 115 H 16 152/88 H 96 Room Air 10/27/22 03:30 37.3 C 99 H 16 130/85 98 Room Air 10/27/22 03:00 100 H 16 127/88 96 Room Air Laboratory Results Laboratory Results - last 24 hr 10/26/22 10/26/22 10/26/22 21:35 21:35 22:56 WBC 22.42 H RBC 5.74 Hgb 18.2 H Hct 51.9 MCV 90.4 MCH 31.7 MCHC 35.1 RDW Std Deviation 41.6 RDW Coeff of [place] 12.6 Plt Count 177 MPV 10.3 Immature Gran % (Auto) 0.9 Neut % (Auto) 93.6 Lymph % (Auto) 2.0 Lewis % (Auto) 3.4 Eos % (Auto) 0.0 Baso % (Auto) 0.1 Neut # (Auto) 20.98 H Lymph # (Auto) 0.45 L Lewis # (Auto) 0.76 H Eos # (Auto) 0.00 Baso # (Auto) 0.02 Immature Gran # (Auto) 0.21 H ESR Sodium TNP 133 L Potassium TNP 4.2 Chloride 92 L Carbon Dioxide 25 Anion Gap TNP BUN 24 H Creatinine 1.53 H Est Cr Clr Drug Dosing 82.0 Est GFR ( Amer) 74.8 Est GFR (Non-Af Amer) 64.5 BUN/Creatinine Ratio 15.7 Glucose 158 H Calcium 9.9 Total Bilirubin 1.5 H AST TNP 24 ALT 23 Alkaline Phosphatase 66 C-Reactive Protein Total Protein 8.9 H Albumin 4.5 Globulin 4.4 H Albumin/Globulin Ratio 1.0 Lipase 11 Procalcitonin Urine Color Urine Appearance Urine pH Ur Specific [place] Urine Protein Urine Glucose (UA) Urine Ketones Urine Blood Urine Nitrite Urine Bilirubin Urine Urobilinogen Ur Leukocyte Esterase Urine WBC (Auto) Urine RBC (Auto) U Hyaline Cast (Auto) U Epithel Cells (Auto) Urine Bacteria (Auto) Adenovirus (PCR) B. pertussis DNA (PCR) B.parapertussis DNA PCR C. pneumoniae DNA (PCR) Coronavirus OC43 (PCR) Coronavirus HKU1 (PCR) Coronavirus 229E (PCR) SARS-CoV-2 (PCR) Coronavirus NL63 (PCR) Human Metapneumovir PCR Influenza Type A (PCR) Influenza Type B (PCR) M. pneumoniae (PCR) Parainfluenza 1 (PCR) Parainfluenza 2 (PCR) Parainfluenza 3 (PCR) Parainfluenza 4 (PCR) RSV (PCR) Entero/Rhino (PCR) 10/26/22 10/27/22 10/27/22 23:13 07:16 07:16 WBC 15.80 H RBC 4.96 Hgb 15.6 Hct 43.8 MCV 88.3 MCH 31.5 MCHC 35.6 RDW Std Deviation 41.1 RDW Coeff of [place] 12.6 Plt Count 142 MPV 10.5 Immature Gran % (Auto) 0.7 Neut % (Auto) 93.6 Lymph % (Auto) 1.6 Lewis % (Auto) 3.3 Eos % (Auto) 0.1 Baso % (Auto) 0.7 Neut # (Auto) 14.79 H Lymph # (Auto) 0.26 L Lewis # (Auto) 0.52 Eos # (Auto) 0.01 Baso # (Auto) 0.11 Immature Gran # (Auto) 0.11 ESR 66 H Sodium Potassium Chloride Carbon Dioxide Anion Gap BUN Creatinine Est Cr Clr Drug Dosing Est GFR ( Amer) Est GFR (Non-Af Amer) BUN/Creatinine Ratio Glucose Calcium Total Bilirubin AST ALT Alkaline Phosphatase C-Reactive Protein Total Protein Albumin Globulin Albumin/Globulin Ratio Lipase Procalcitonin Urine Color Urine Appearance Urine pH Ur Specific [place] Urine Protein Urine Glucose (UA) Urine Ketones Urine Blood Urine Nitrite Urine Bilirubin Urine Urobilinogen Ur Leukocyte Esterase Urine WBC (Auto) Urine RBC (Auto) U Hyaline Cast (Auto) U Epithel Cells (Auto) Urine Bacteria (Auto) Adenovirus (PCR) Not Detected B. pertussis DNA (PCR) Not Detected B.parapertussis DNA PCR Not Detected C. pneumoniae DNA (PCR) Not Detected Coronavirus OC43 (PCR) Not Detected Coronavirus HKU1 (PCR) Not Detected Coronavirus 229E (PCR) Not Detected SARS-CoV-2 (PCR) Not Detected Coronavirus NL63 (PCR) Not Detected Human Metapneumovir PCR Not Detected Influenza Type A (PCR) Not Detected Influenza Type B (PCR) Not Detected M. pneumoniae (PCR) Not Detected Parainfluenza 1 (PCR) Not Detected Parainfluenza 2 (PCR) Not Detected Parainfluenza 3 (PCR) Not Detected Parainfluenza 4 (PCR) Not Detected RSV (PCR) Not Detected Entero/Rhino (PCR) DETECTED A* 10/27/22 10/27/22 10/27/22 07:16 07:16 07:29 WBC RBC Hgb Hct MCV MCH MCHC RDW Std Deviation RDW Coeff of [place] Plt Count MPV Immature Gran % (Auto) Neut % (Auto) Lymph % (Auto) Lewis % (Auto) Eos % (Auto) Baso % (Auto) Neut # (Auto) Lymph # (Auto) Lewis # (Auto) Eos # (Auto) Baso # (Auto) Immature Gran # (Auto) ESR Sodium 135 L Potassium 3.7 Chloride 100 Carbon Dioxide 23 Anion Gap 12 H BUN 27 H Creatinine 1.78 H Est Cr Clr Drug Dosing 70.5 Est GFR ( Amer) 62.3 Est GFR (Non-Af Amer) 53.7 BUN/Creatinine Ratio 15.2 Glucose 127 H Calcium 8.8 Total Bilirubin 1.2 H AST 24 ALT 20 Alkaline Phosphatase 57 C-Reactive Protein 30.97 H Total Protein 7.0 D Albumin 3.6 Globulin 3.4 Albumin/Globulin Ratio 1.1 Lipase Procalcitonin 61.56 H Urine Color [place] Urine Appearance Clear Urine pH 5.5 Ur Specific [place] > 1.045 H Urine Protein 3+ H Urine Glucose (UA) Negative Urine Ketones 1+ H Urine Blood 2+ H Urine Nitrite Positive A Urine Bilirubin 1+ H Urine Urobilinogen Negative Ur Leukocyte Esterase Trace H Urine WBC (Auto) 5-10 H Urine RBC (Auto) 0-4 U Hyaline Cast (Auto) 1-5 U Epithel Cells (Auto) 5-10 H Urine Bacteria (Auto) 1+ H Adenovirus (PCR) B. pertussis DNA (PCR) B.parapertussis DNA PCR C. pneumoniae DNA (PCR) Coronavirus OC43 (PCR) Coronavirus HKU1 (PCR) Coronavirus 229E (PCR) SARS-CoV-2 (PCR) Coronavirus NL63 (PCR) Human Metapneumovir PCR Influenza Type A (PCR) Influenza Type B (PCR) M. pneumoniae (PCR) Parainfluenza 1 (PCR) Parainfluenza 2 (PCR) Parainfluenza 3 (PCR) Parainfluenza 4 (PCR) RSV (PCR) Entero/Rhino (PCR) Diagnostic Findings Reviewed CT scan and interpreted myself, agree with findings of gastritis, appendicolith with no evidence of appendicitis. Exam(s): CT ABDOMEN + PELVIS With Contrast IV Amt: 86 ML OPTIRAY 350 EXAM: CT Abdomen and Pelvis With Intravenous Contrast CLINICAL HISTORY: rlq pain. TECHNIQUE: Axial computed tomography images of the abdomen and pelvis with intravenous contrast. CTDI is 7.04 mGy and DLP is 373.95 mGy-cm. Automated exposure control was utilized for the study. A dose lowering technique was utilized adhering to the principles of ALARA. CONTRAST: Patient received 86 ML OPTIRAY 350 of IV contrast COMPARISON: No relevant prior studies available. FINDINGS: Lung bases: Unremarkable. No mass. No consolidation. ABDOMEN: Liver: Hepatic steatosis. Gallbladder and bile ducts: Unremarkable. No calcified stones. No ductal dilation. Pancreas: Unremarkable. No mass. No ductal dilation. Spleen: Unremarkable. No splenomegaly. Adrenals: Unremarkable. No mass. Kidneys and ureters: Unremarkable. No solid mass. No hydronephrosis. Stomach and bowel: There is abnormal mucosal thickening of the stomach, despite partial decompression. No evidence for gastric obstruction. In addition, there is abnormal mucosal thickening of the colon which is predominantly decompressed. No evidence for bowel obstruction. PELVIS: Appendix: 6 mm appendicolith noted in the proximal appendix the appendix distal to the appendicolith is within normal limits measuring up to 6 mm. No obvious periappendiceal fat stranding, accounting for respiratory artifact in this region. Bladder: Unremarkable. No mass. Reproductive: Unremarkable as visualized. ABDOMEN and PELVIS: Intraperitoneal space: Unremarkable. No free air. No significant fluid collection. Bones/joints: No acute fracture. No dislocation. Soft tissues: Unremarkable. Vasculature: Unremarkable. No abdominal aortic aneurysm. Lymph nodes: Unremarkable. No enlarged lymph nodes. IMPRESSION: 1. 6 mm appendicolith noted in the proximal appendix the appendix distal to the appendicolith is within normal limits measuring up to 6 mm. No obvious periappendiceal fat stranding, accounting for respiratory artifact in this region. Suspect normal variation. Please correlate with clinical symptoms. 2. There is abnormal mucosal thickening of the stomach, despite partial decompression. No evidence for gastric obstruction. Findings are most consistent with gastritis. 3. In addition, there is abnormal mucosal thickening of the colon which is predominantly decompressed. No evidence for bowel obstruction. Coexisting inflammatory infectious colitis are suspected. No free intraperitoneal fluid or pneumoperitoneum. PG Care Time/CCT Total # of Minutes Spent Total Time Spent with Patient: Total time spent is greater than 50% in coordination of care (as documented) at patient's floor/unit and/or counseling patient: Coding Level of Care Code 65301 SUB INP/OBS CARE 08/05MIN Diagnoses Viral gastroenteritis A08.4 Appendicolith K38.9
[2022-10-27] MEDS ORDERED: IBUPROFEN 600 MG TAB PO PRN (15:50)
[2022-10-27] MEDS ORDERED: cefTRIAXone SODIUM 2,000 MG in DEXTROSE 5% 50 ML IV SCH (18:00)
[2022-10-27 18:28] LABS: Albumin Globulin Ratio 1.1 (0.9-2); Albumin Level 3.2 gm/dl (3.4-5.0); BUN Creatinine Ratio 15.1 (10-20); Bilirubin,Total 1.1 mg/dl (0.2-1.0); Calcium 8.6 mg/dl (8.6-10.3); Creatinine Clr Calc Pharmacy 70.1 ml/min; Est GFR (African American) 61.8 ml/min; Est GFR (Non-African American) 53.4 ml/min; Potassium 3.6 mmol/L (3.5-5.1); Total Protein 6.2 gm/dl (6.0-8.3)
[2022-10-27 18:31] LABS: Mean Corpuscular Hemoglobin 31.1 pg (25.0-34.0); Mean Corpuscular Volume 88.9 fL (80.0-100.0); Mean Platelet Volume 10.8 fL (9.4-12.4); Platelet Count 126 K/uL (130-400); RDW Coefficient of Variation 12.5 % (11.5-14.5)
[2022-10-27] MEDS ORDERED: MELATONIN 3 MG TAB PO PRN (19:33)
[2022-10-27] MEDS: AMPICILLIN/SULBACTAM SOD 3,000 MG in 0.9 % SODIUM CHLORIDE 100 ML IV SCH (21:24)
[2022-10-27 23:03] LABS: Adenovirus F 40/41 PCR Not Detected (NotDetected); Astrovirus PCR Not Detected (NotDetected); Campylobacter PCR Not Detected (NotDetected); Cryptosporidium PCR Not Detected (NotDetected); Cyclospora cayetanensis PCR Not Detected (NotDetected); Entamoeba histolytica PCR Not Detected (NotDetected); Enteroaggregative E.coli(EAEC) Not Detected (NotDetected); Enteropathogenic E.coli (EPEC) Not Detected (NotDetected); Enterotoxigenic E.coli (ETEC) Not Detected (NotDetected); Giardia lamblia PCR Not Detected (NotDetected); Norovirus GI/GII PCR Not Detected (NotDetected); Plesiomonas shigelloides PCR Not Detected (NotDetected); Rotavirus A PCR Not Detected (NotDetected); Salmonella PCR Not Detected (NotDetected); Sapovirus PCR Not Detected (NotDetected); Shiga-like Toxin E.coli (STEC) Not Detected (NotDetected); Shigella/Enteroinvasive E.coli Not Detected (NotDetected); Vibrio cholerae PCR Not Detected (NotDetected); Vibrio species PCR Not Detected (NotDetected); Yersinia enterocolitica PCR Not Detected (NotDetected)
[2022-10-28] MEDS: AMPICILLIN/SULBACTAM SOD 3,000 MG in 0.9 % SODIUM CHLORIDE 100 ML IV SCH ×3 (02:31→14:29)
[2022-10-28] MEDS: LACTATED RINGER'S 1,000 ML IV SCH ×3 (02:31→18:15)
[2022-10-28] MEDS: ONDANSETRON INJ 2 MG/ML 2 ML VIAL IV PRN (03:08)
[2022-10-28] MEDS: ACETAMINOPHEN 1,000 MG/100 ML VIAL IV PRN (06:34)
[2022-10-28] MEDS ORDERED: PROCHLORPERAZINE 5 MG in SYRINGE 4 ML IV ONE ×2 (06:45→17:00)
[2022-10-28] MEDS: PANTOprazole 40 MG in SYRINGE 0 ML IV SCH ×2 (07:17→20:11)
--- NOTE | 2022-10-28 08:22 | Hospitalist Progress Note ---
Date of Service October 28, 2022 Assessment & Plan (1) Abdominal pain: Plan: 22M with no significant PMH who presented with abdominal pain nausea and vomiting since Wednesday 10/25. Abdominal pain -Labs on admission: WBC 22.42. Hgb 18.2. Na+ 133, BUN 24, Cr 1.53. T. bili 1.5. Entero/Rhino virus also detected on respiratory panel. -Abnormal mucosal thickening of the stomach consistent with gastritis, abnormal mucosal thickening of colon suspicious of inflammatory colitis. -6mm appendicolith noted in the proximal appendix but did not correlate with clinical symptoms. Suspect artifact. -Suspect infectious process, though inflammatory, ischemic etiology cannot be excluded at this time. * Admit to med surg. Made NPO. * mIVF LR @125 mL/hr * GI consult placed. Appreciate recs. * IV Protonix 40 mg bid * IV Zofran 4 mg q4h * Procalcitonin elevated (61), ESR/CRP (elevated), GI PCR panel (enterovirus +), KUB all pending (large stool volume, otherwise unremakable) * Trend CMP Gram Positive Bacteremia (Likely Group A Strep) - Patient SIRS + with possible Urinary source/Oropharyngeal source * ID consulted d/t Gram + Bacteremia (likely a/w Group A Strep, urine cultures remain pending) - recommending transition to Penicillin G and Clindamycin * CRP and Procal downtrending, but remain elevated * Ongoing hydration with LR @ 150 ml/hr * Continue IV Tylenol, clear liquid diet as tolerated * Surveilance cultures drawn Acute Kidney Injury - Nephrology consulted d/t positive urinalysis, rising creatinine, lack of urination, and non-specific imaging * Urinalysis positive on admission: 3+ protein, 2+ blood, + nitrites, 5-10 WBC, 1+ bacteria * Creatinine rising to 1.86 in AM, downtrending to 1.76 by afternoon check * Normal Creatinine Kinase * Nephrology suspects relation to GAS bacteremia, but recommends further evaluation with serologies and 24 hour urine given UA Gastritis/Colitis - Gastritis/Colitis possible a/w enterovirus infection, clinical picture remains inconsistent given patient's elevated ESR/CRP/ProCal * ID consulted d/t ongoing epigastric pain and significant gastritis on CT - suspects that symptoms are related to patients bacteremia * Will continue Protonix 40 mg BID Appendicolith (incidental) - Surgery recommending against management of appendicolith, notes findings more consistent with gastritis/colitis, unlikely appendicitis * GI recommending acid suppression and advancing diet as tolerated Code: Full code Dispo: Med-Surg FEN/GI: Clears. LR @ 150 ml/hr DVT Prophylaxis: None, ambulation as tollerated PT/OT: No Consults: GI, Surgery (2) SIRS (systemic inflammatory response syndrome): (3) Viral gastroenteritis: (4) Gram-positive bacteremia: Admission and Anticipated Discharge Date Admission Date: October 27, 2022 Supervising Physician Co-Signing Physician Notes ATTESTATION I also saw the patient and confirmed davis portions of the history and exam. I agree with the impression and plan in the resident documentation, and as summarized below. I also discussed the case with both nephrology and infectious disease consultants. Also reviewed the patient's imaging with our radiologist. Upon our exam right around noon, patient was lying in bed; still not feeling well, but " not as bad." Both mother and father are at bedside and all diagnostic tests and treatments are reviewed and questions answered. EXAM 141/85, 90, 16, 36.6, 95% on room air Pleasant alert. His voice sounds slightly hoarse Throat is erythematous, no exudate appreciated, there is bilateral tonsillar hypertrophy, symmetrical. Airway is widely patent. Neck is supple; very mild anterior cervical lymphadenopathy. Heart is regular to slightly tachycardic; regular; respirations are nonlabored The abdomen is soft, minimal tenderness, no rebound DATA Labs WBC 16.84, hemoglobin 13.5, platelet count 145 ESR 69 Sodium 136, potassium 3.4, BUN 26, creatinine 1.86 CRP 23.97, downtrending Procalcitonin 49.82, downtrending Rapid group A strep (posterior pharynx), positive Imaging CT scan of the abdomen and pelvis 10/26/2022 shows a 6 mm appendicolith, without associated inflammatory change. Also noted is thickening of the stomach mucosa, consistent with gastritis. Also noted thickening of the colon suggestive of infectious colitis. KUB completed showed nonobstructive bowel gas pattern. He did note contr ast within the urinary bladder and kidneys secondary to CT scan 9 hours previous. Renal ultrasound completed 10/28/2022 demonstrate echogenic kidneys, a small amount of pelvic free fluid, and normal bladder. Micro Blood cultures dated 10/27/2022 demonstrating growth of gram-positive cocci in change, 08/13 Urine culture dated 10/27/2022 shows pinpoint growth, reintubating IMPRESSION & PLAN Presumed group A strep sepsis Acute renal failure Hemodynamically stable, has been afebrile now for nearly 24 hours Infectious disease and nephrology consulted today; consultations reviewed and appreciated Continue IV fluids, monitor urine output Additional labs per nephrology After discussion with infectious disease, will add clindamycin and penicillin G; discontinue Unasyn Repeat blood cultures at 24 hours (will be this afternoon), and repeat until cleared Trend procalcitonin (we will check this afternoon as well) Gastritis Rather significant gastric wall thickening on admission CT -unsure if this is related to his infection, or pre-existing. As noted previously, he has been following with gastroenterology for various GI type symptoms. Continue IV PPI, twice daily Discussed with gastroenterology Additional per resident documentation Subjective 10/27: Sam is a 22M who presented with nausea, hematemesis (scant), and abdominal pain. Patient notes that he has been constipated since Wednesday and has just urinated for the first time since Wednesday (small amount, dark kayla). Patient notes that he feels unchanged since admission, he continues to have significant nausea and diffuse abdominal pain. Patient endorses fevers and chills, w/o diaphoresis. Patient denies recent sick contacts or preceding URI symptoms. He does note mild pain in his throat and ongoing hoarse voice. Patient's sister was at bedside during conversation and examination, per patient's request. 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 10/28: Patient notes mild improvement of symptoms, states that his nausea is somewhat improved by the Phenergan dose, but that he continues to have abdominal pain and spasms of discomfort. He notes ongoing fatigue, but feels as thought his fevers/chills have improved. Patient denies any chest pain, dyspnea, headaches, or lightheadedness. He notes that his throat continues to hurt, which is preventing him from eating well, though he continues to attempt to drink. Patient notes that has has had small attempts to move his bowels, without diarrhea. He states that he only urinates scant amounts when he tries to move his bowels. Otherwise, no urine output. Upon discussion, patient notes that it does not hurt when he urinates. He notes that he is sexually active with a single female partner, has had recent negative STD testing, and has had no new sexual partners since. He has not had any penile discharge or rashes. Review of Systems Review of Systems: As per HPI Physical Exam Physical Exam: General: Uncomfortable (a/w emesis/spasms), non-toxic, conversive HEENT: PERRLA. Normal conjunctiva, anicteric sclera. Significant oropharyngeal erythema w/o exudate. Hoarse voice. Respiratory: Normal respiratory effort, CTABL, no wheezing/rhonchi/rales Cardiovascular: RRR without murmurs, gallops, or rubs. No edema. GI: Soft abdomen, normoactive bowel sounds, mild TTP throughout, bladder palp able in center lower abdomen w/ associated TTP (0800), CVA tenderness bilaterally (R>L) Neuro: Alert and oriented x3. Results & Data Results & Data Vital Signs (Past 12 Hours) Vital Signs Temp Pulse Resp BP Pulse Ox O2 Del Method 10/28/22 07:30 36.6 C 90 16 131/85 95 Room Air 10/27/22 21:43 37.5 C 94 H 18 132/77 98 Room Air Resident Activity Tracking Resident Involvement: Resident Care Provided Care Provided: Adult Hospital Medicine
[2022-10-28 09:27] LABS: Hematocrit (blood only) 38.3 % (42.0-52.0); Hemoglobin 13.5 g/dl (14.0-18.0); Mean Corpuscular Hemoglobin 31.3 pg (25.0-34.0); Mean Corpuscular Hgb Conc 35.2 g/dL (32.0-36.0); Mean Corpuscular Volume 88.7 fL (80.0-100.0); Mean Platelet Volume 10.7 fL (9.4-12.4); Platelet Count 145 K/uL (130-400); RDW Coefficient of Variation 12.3 % (11.5-14.5); RDW Standard Deviation 40.3 fL (36.4-46.3); Red Blood Count 4.32 M/uL (4.70-6.10); White Blood Count 16.84 K/ul (4.8-10.8)
[2022-10-28 09:43] LABS: Bilirubin,Total 0.7 mg/dl (0.2-1.0); C Reactive Protein 23.97 mg/dl (0-0.5); Calcium 8.5 mg/dl (8.6-10.3); Creatinine Clr Calc Pharmacy 67.5 ml/min; Est GFR (Non-African American) 50.9 ml/min; Globulin 2.9 gm/dl (2.5-4.0); Phosphorus 2.1 mg/dl (2.5-4.9); Potassium 3.4 mmol/L (3.5-5.1); Total Protein 5.9 gm/dl (6.0-8.3)
[2022-10-28 10:07] LABS: Basophils # (auto) 0.05 K/uL (0-0.2); Basophils % (auto) 0.3 %; Dohle Bodies 1+; Eosinophils # (auto) 0.14 K/uL (0-0.50); Eosinophils % (auto) 0.8 %; Immature Granulocytes # (auto) 0.16 K/uL (0.01-0.20); Lymphocytes # (auto) 0.42 K/uL (1.2-3.4); Lymphocytes % (auto) 2.5 %; Monocytes % (auto) 4.8 %; Neutrophils # (auto) 15.27 K/uL (1.40-6.50); Neutrophils % (auto) 90.6 %; Toxic Vacuolation 1+
--- NOTE | 2022-10-28 11:14 | Nephrology Consultation ---
Date of Consultation October 28, 2022 Assessment & Plan (1) Acute kidney injury: (2) Hematuria: (3) Proteinuria: (4) SIRS (systemic inflammatory response syndrome): (5) Bacteremia: Plan 22-year-old male with no past medical history, no known history of CKD admitted to the hospital with symptoms suggestive of gastroenteritis, fever, chills and now diagnosed with sepsis with streptococcal bacteremia. Creatinine was 1.5 on admission with no prior history of CKD or baseline available, over last 2 days creatinine slightly worsened to creatinine up to 1.9 this morning. urinalysis with 3+ proteinuria, 2+ hematuria. Renal imaging suggestive of echogenic kidney and concern for infectious versus inflammatory disease. Differentials for acute kidney injury is brought in this case specially with sepsis as well as proteinuria and hematuria. Could be prerenal with decreased p.o. intake for several days, even though he received IV fluid bolus and IV hydration ongoing it may take few days for kidney function to recover. May have some effect from IV contrast exposure as well. Even though post streptococcal GN is a possibility however, timeline does not clearly fit although possible. considering young age, unknown baseline, hematuria, proteinuria IgAN remains a possibility as well. -- Continue on IV fluid for now as p.o. intake remains poor, monitor urine output -- antibiotic management as per ID, urine culture pending -- considering significant proteinuria and hematuria, will order serology and check 24 hour urine for better assessment of proteinuria and repeat urinalysis tomorrow -- discontinue ibuprofen and avoid all NSAIDs. -- If clinically improve with antibiotic but renal function continues to worsen, may need to consider renal biopsy however do not see any indication at this time -- explained in detail with Sam's parents who verbalized understanding and agree with the above plan. Thank you for allowing me to participate in your patient's care. It was a pleasure to see Sam. History of Present Illness Reason for Consultation: Acute kidney injury, oliguria Attending Physician: Nils Fuentes DO History of Present Illness Sam Varela is a 22-year-old young male with no past medical history admitted on 10/26/22 with gastroenteritis/colitis. Nephrology consult was requested for management of KOBI with oliguria. EMR records reviewed in detail during patient's visit. Patients parents were at bedside who provided the history in addition to discussion with primary team and EMR review. Sam presented to ER on 10/26/22 with F/C, nausea, vomiting, and lower abdominal pain which started around last Wednesday,Wednesday. Prior to this episode he has been otherwise in his normal health. He has not been eating or drinking for 2 days prior to admission. Has been noticing low UO with dark color which has been getting under seal operator in color since yesterday. Denies any history of gross hematuria before. No skin rash, arthralgia. No h/o autoimmune disease, recent antibiotic prior to the admission. He took ibuprofen only once prior to coming to the hospital and received another dose while in hospital for generalized abdominal pain and body ache. BP was normal on admission. Lab showed Cr 1.5 with no prior lab available, no known history of CKD. UA with 3+ protein, 2+ hematuria and Bacteria. CT A/P with contrast showed no postrenal obstruction. Renal USG showed echogenic kidney. CT showed abnormal mucosal thickening of the stomach and colon consistent with gastritis,and colitis.He received IV fluid boluses and continued on LR 150 mL/hour however, creatinine continued to worsen slowly over last 2 days, this morning creatinine was 1.9, K was 3.4. Urine output started to improve and color under seal operator.. WBC was 22.4, hemoglobin of 18.2, sodium of 133. Entero-/rhinovirus was positive. yesterday afternoon clinically he looked clinically worse, strep throat was done which was positive and subsequently blood culture was ordered and it was positive for Streptococcus. He was started on Ceftriaxone and now switched to Ampicillin/Sulbactam. No f/h of CKD, ESRD. Never smoker, [employer] student. Recently seen by GI a month ago for increased frequency of bowel movement, a colonoscopy was recommended and planning to do in 2 months, started on PPI. He was sleepy and lethargic but woke up easily and answered questions. Complaining of pain all over. Reports urine getting under seal operator in color. Allergies Allergy/AdvReac Type Severity Reaction Status Date / Time pollen extracts Allergy Intermediate sneezzuly,whee Verified 10/26/22 23:02 zy Home Medications Medication Instructions Recorded Confirmed Type methylphenidate HCl 54 mg 54 mg PO QAM 10/26/22 10/26/22 History tablet,extended release 24 hr (Concerta) omeprazole magnesium 20 mg 20 mg PO QAM 10/26/22 10/26/22 History tablet,delayed release Patient History Medical History (Updated 10/28/22 @ 18:13 by Valentina Duvall DO) Appendicolith Bacteremia Hematuria Proteinuria Viral gastroenteritis Social History Smoking Status: Never smoker Hx Alcohol Use: Yes Alcohol type: beer and hard liquor Hx Substance Use: No Preferred Language: [place] Communication Ability: Effective Flarer Required: No Beliefs That Will Affect Care: None Current Living Situation: Other Current Living Situation Comment: [facility] Feels Safe at Home: Yes Safety Concerns: Feels Safe At This Time Assistive Devices: None Review of Systems Review of Systems: detailed review of system was done and pertinent positives and negatives are mentioned above. Physical Exam Constitutional: WD/WN, vitals as above no acute distress Eyes: + anicteric sclerae ENMT: Ears: no hearing impairment Nose: nasal mucous membranes not dry Neck: normal visual inspection Thyroid: no thyromegaly Respiratory: normal respiratory effort; no respiratory distress and no cough Auscultation: lungs clear to auscultation bilaterally Cardiovascular: Rate/Rhythm: regular rate and regular rhythm Heart Sounds: normal S1 and normal S2 Extremities: no edema Gastrointestinal (Abdomen): Inspection/Auscultation: abdomen normal to inspection and normal bowel sounds Percussion/Palpation: abdomen soft; abdomen nontender Musculoskeletal: Extremities: extremities normal to inspection Skin: normal turgor; no rashes Neurologic: no focal motor deficits and not confused Psychiatric: Orientation: alert and oriented x 3 Affect: euthymic affect Results & Data Vital Signs (Past 12 Hours) Vital Signs Temp Pulse Resp BP Pulse Ox O2 Del Method 10/28/22 07:26 Room Air 10/28/22 07:30 36.6 C 90 16 131/85 95 Room Air PG Care Time/CCT Total # of Minutes Spent Total Time Spent with Patient: Total time spent is greater than 50% in coordination of care (as documented) at patient's floor/unit and/or counseling patient: Coding Level of Care Code 82519 IN/OBS CONSULT LVL 5,80M Diagnoses Acute kidney injury N17.9 Hematuria R31.9 Proteinuria R80.9 SIRS (systemic inflammatory response syndrome) R65.10 Bacteremia R78.81
[2022-10-28 11:31] LABS: A calco-baum cmplx NotReported Not Detected (NotDetected); Bact fragilis Not Reported Not Detected (NotDetected); C auris Not Reported Not Detected (NotDetected); Calbicans Not Reported Not Detected (NotDetected); Candida glabrata Not Reported Not Detected (NotDetected); Candida krusei Not Reported Not Detected (NotDetected); Cneoformans/gatti Not Reported Not Detected (NotDetected); Cparapsilosis Not Reported Not Detected (NotDetected); Ctropicalis Not Reported Not Detected (NotDetected); E cloacae compx Not Reported Not Detected (NotDetected); Efaecalis Not Reported Not Detected (NotDetected); Efaecium Not Reported Not Detected (NotDetected); Enterobacterales Not Reported Not Detected (NotDetected); Escherichia coli Not Reported Not Detected (NotDetected); H influenzae Not Reported Not Detected (NotDetected); K aerogenes Not Reported Not Detected (NotDetected); Koxytoca Not Reported Not Detected (NotDetected); Kpneumoniae grp Not Reported Not Detected (NotDetected); Lmonocyt Not Reported Not Detected (NotDetected); N meningitidis Not Reported Not Detected (NotDetected); P aeruginosa Not Reported Not Detected (NotDetected); Proteus spp Not Reported Not Detected (NotDetected); Salmonella spp Not Reported Not Detected (NotDetected); Smarcescens Not Reported Not Detected (NotDetected); Staph lugdunensis Not Reported Not Detected (NotDetected); Staph spp. Not Reported Not Detected (NotDetected); Staphaureus Not Reported Not Detected (NotDetected); Staphepi Not Reported Not Detected (NotDetected); Stenmaltophilia Not Reported Not Detected (NotDetected); Strep agal(GrpB) Not Reported Not Detected (NotDetected); Strep pneum Not Reported Not Detected (NotDetected); Strep spp Not Reported DETECTED (NotDetected); Streptococcus spp DETECTED (NotDetected)
--- NOTE | 2022-10-28 11:35 | Ultrasound Report ---
RENAL ULTRASOUND HISTORY: abd pain/urine retention/flank pain COMPARISON: Abdomen and pelvis CT 10/26/2022. FINDINGS: Right kidney: 11.5 cm. No hydronephrosis. Diffusely echogenic. Left kidney: 12.0 cm. No hydronephrosis. Diffuse echogenic. Bladder: No bladder wall thickening. The bilateral ureteral jets were not identified. Miscellaneous: Small amount of pelvic free fluid. IMPRESSION: 1. Echogenic kidneys. This can be seen in the setting of a glomerulonephritis or pyelonephritis. 2. Small amount of pelvic free fluid. 3. Normal bladder. ACT 112: Negative or not required by law. Electronically signed by: Leonidas Powell M.D. 10/28/2022 11:34 AM
[2022-10-28 11:52] LABS: Strep pyog (GrpA) Not Reported DETECTED (NotDetected)
[2022-10-28 11:53] LABS: Streptococcus pyogenes (GrpA) DETECTED (NotDetected)
--- NOTE | 2022-10-28 14:02 | Infectious Disease Consult ---
Date of Consultation October 28, 2022 Assessment & Plan (1) Bacteremia: (2) Appendicolith: (3) Acute kidney injury: Plan 22 yo M with no PMH who presented on 10/26 with N/V, abd pain, diarrhea, found to have entero/rhinovirus and Group A Strep bacteremia. Pt noted some blood on the tissue when he had diarrhea, and also had a small amount of blood in his emesis (but also had a nosebleed at that time). Denied fevers, chills, dyspnea. On presentation, he was afebrile, HR 121, normotensive. Labs showed WBC 22.42, Hb 18.2, Cr 1.53, Tbili 1.5, ESR 66, procalcitonin 61.6. RVP was positive for entero/rhinovirus. CT A/P with contrast showed a 6 mm appendicolith, with no obvious periappendiceal fat stranding, abnormal mucosal thickening of stomach most consistent with gastritis, and abnormal mucosal thickening of colon, coexisting inflammatory infectious colitis suspected. Surgery felt the appendicolith was an incidental finding, not the cause of his symptoms. Stool PCR panel was negative. Pt became febrile on 10/27 to Tmax of 38.2. BCx were collected and grew Strep pyogenes in 2/4 bottles. UA showed 5-10 WBCs, UCx pending. Pt was started on ceftriaxone on 10/27 due to a concern for urinary source of infection, then changed to amp-sulbactam. Pt's WBC has downtrended but remains stable around 16- 17. Cr has increased to 1.86 today. Procalcitonin and CRP have downtrended. Pt continues to have diarrhea and abdominal pain. No recent unusual exposures. Unclear source of Group A Strep bacteremia--no wounds on exam, no recent injuries, denies IVDU. GAS bacteremia is not typically associated with entero/rhinovirus. Pt does report a small amount of cough and some raspy throat thought related to vomiting, but interestingly does not seem to have overt URI symptoms. It is possible the GAS bacteremia is causing his flu-like symptoms of N, V, diarrhea, although could still consider appendicitis in the setting of his RLQ pain on exam. Pt does not have clear signs of toxic shock syndrome from GAS, as his BP appears to normal to high. There is some evidence of end organ damage with elevated Cr. Reassuringly, LFTs are normal, and he is not thrombocytopenic. Micro: 10/27 BCx x2: GPCs in chains in 2/4 bottles. PCR panel shows Strep pyogenes 10/27 UCx: pin-point growth present, reincubating Abx: Amp-sulbactam 10/27 - Ceftriaxone 10/27 Problems: #Strep pyogenes bacteremia #Enterovirus/rhinovirus #Diarrhea #Abdominal pain #Nausea Recommendations: -Agree with repeat BCx today -Continue amp-sulbactam -Will give short course of clindamycin for toxin control. Starting clindamycin 900 mg IV q8h -Monitor abdominal exam Will continue to follow Consultation Information Consultation was provided via telemedicine using two-way real-time interactive telecommunication between the patient and the telemedicine provider. For the duration of the visit, the provider was performing the assessment from a different facility than the patient. This includesuse of bluetooth stethoscope forauscultationperformed by the telepresenter that the telemedicine provider can hear if described in the physical exam. Sales And Leasing Agent contact information: Please call [facility] . (Phone Number For Physician Use Only) After establishing a telemedicine visit, patient was: Patient was verified with two unique identifiers, Patient/authorized rep acknowledged consent and understanding and Gave permission to continue telehealth session Time Spent with Patient: Initial => 40 min History of Present Illness Reason for Consultation: GAS bacteremia Attending Physician: Nils Fuentes DO History of Present Illness 22 yo M with no PMH who presented on 10/26 with N/V and abd pain starting on 10/25. When his symptoms began, he did have some episodes of diarrhea with blood on tissue. Also initially had small amount of blood in his emesis, but also had a nosebleed at that time. Denied fevers, chills, headache, shortness of breath, chest pain. On presentation, he was afebrile, HR 121, normotensive. Labs showed WBC 22.42, Hb 18.2, Cr 1.53, Tbili 1.5, ESR 66, procalcitonin 61.6. RVP was positive for entero/rhinovirus. CT A/P with contrast showed a 6 mm appendicol ith, with no obvious periappendiceal fat stranding, abnormal musocal thickening of stomach most consistent with gastritis, and abnormal mucosal thickening of colon, coexisting inflammatory infectious colitis suspected. Surgery felt the appendicolith was an incidental finding, not the cause of his symptoms. Renal US showed echogenic kidneys. Stool PCR panel was negative. Pt was febrile on 10/27 to Tmax of 38.2. BCx collected. UA showed 5-10 WBCs, UCx pending. Pt was started on ceftriaxone on 10/27 due to a concern for urinary source of infection, then changed to amp-sulbactam. BCx grew GPCs in chains in 2/4 bottles, with BCID PCR panel positive for Strep pyogenes. Pt's WBC has downtrended but remains stable around 16-17. Cr has increased to 1.86 today. Procalcitonin and CRP have downtrended. Pt reported he vomited 3 times this morning, but did not notice hematemesis. His nausea is improved this afternoon. He continues to have diarrhea, but has not noticed blood in his stools. Denies sick contacts, recent travel. He denies recent hiking, swimming. Denies IVDU. Denies wounds, recent injuries. Denies hardware/prosthetic material in his body. Reports a bit of cough starting on Wednesday. States his nose isn't very congested, only has some runny nose while vomiting. His throat is raspy from throwing up, and hurts when he swallows. Allergies Allergy/AdvReac Type Severity Reaction Status Date / Time pollen extracts Allergy Intermediate sneezy,whee Verified 10/26/22 23:02 zy Home Medications Medication Instructions Recorded Confirmed Type methylphenidate HCl 54 mg 54 mg PO QAM 10/26/22 10/26/22 History tablet,extended release 24 hr (Concerta) omeprazole magnesium 20 mg 20 mg PO QAM 10/26/22 10/26/22 History tablet,delayed release Patient History Medical History (Updated 10/28/22 @ 14:30 by Reina Moreno MD) Appendicolith Bacteremia Hematuria Proteinuria Viral gastroenteritis Social History Smoking Status: Never smoker Hx Alcohol Use: Yes Alcohol type: beer and hard liquor Hx Substance Use: No Preferred Language: Greenlandic Communication Ability: Effective Press Maintainer Required: No Beliefs That Will Affect Care: None Current Living Situation: Other Current Living Situation Comment: RO[facility] Feels Safe at Home: Yes Safety Concerns: Feels Safe At This Time Assistive Devices: None Review of System A complete ROS was performed and is negative except as mentioned in the HPI. Physical Exam Physical Exam: GEN: laying in bed in NAD HEENT: Normocephalic, atraumatic. RESP: No increased work of breathing ABD: Soft, non-distended. Tender diffusely, particularly in RLQ. EXT: No LE edema. Warm, well-perfused. SKIN: some petechiae on dorsal surfaces of feet. No rashes or wounds. BACK: No paraspinal tenderness or CVA tenderness NEURO: Alert and oriented. Answers all questions appropriately. Speech not slurred. PSYCH: Normal mood, affect appropriate. Results & Data Vital Signs (Past 12 Hours) Vital Signs Temp Pulse Resp BP Pulse Ox O2 Del Method 10/28/22 07:26 Room Air 10/28/22 07:30 36.6 C 90 16 131/85 95 Room Air Laboratory Results Short CBC 10/27/22 10/28/22 Range/Units 17:50 08:51 WBC 15.80 H 16.84 H (4.8-10.8) K/ul Hgb 14.0 13.5 L (14.0-18.0) g/dl Hct 40.0 L 38.3 L (42.0-52.0) % Plt Count 126 L 145 (130-400) K/uL BMP 10/27/22 10/28/22 17:50 08:51 Sodium 136 136 Potassium 3.6 3.4 L Chloride 102 102 Carbon Dioxide 24 24 BUN 27 H 26 H Creatinine 1.79 H 1.86 H Glucose 127 H 100 H Calcium 8.6 8.5 L Liver Function 10/27/22 10/28/22 Range/Units 17:50 08:51 Total Bilirubin 1.1 H 0.7 (0.2-1.0) mg/dl AST 22 18 (13-39) U/L ALT 20 21 (7-52) U/L Alkaline Phosphatase 50 56 (34-104) U/L Albumin 3.2 L 3.0 L (3.4-5.0) gm/dl Diagnostic Findings Abdomen/Pelvis CT 10/26/22 22:57 Exam(s): CT ABDOMEN + PELVIS With Contrast IV Amt: 86 ML OPTIRAY 350 EXAM: CT Abdomen and Pelvis With Intravenous Contrast CLINICAL HISTORY: rlq pain. TECHNIQUE: Axial computed tomography images of the abdomen and pelvis with intravenous contrast. CTDI is 7.04 mGy and DLP is 373.95 mGy-cm. Automated exposure control was utilized for the study. A dose lowering technique was utilized adhering to the principles of ALARA. CONTRAST: Patient received 86 ML OPTIRAY 350 of IV contrast COMPARISON: No relevant prior studies available. FINDINGS: Lung bases: Unremarkable. No mass. No consolidation. ABDOMEN: Liver: Hepatic steatosis. Gallbladder and bile ducts: Unremarkable. No calcified stones. No ductal dilation. Pancreas: Unremarkable. No mass. No ductal dilation. Spleen: Unremarkable. No splenomegaly. Adrenals: Unremarkable. No mass. Kidneys and ureters: Unremarkable. No solid mass. No hydronephrosis. Stomach and bowel: There is abnormal mucosal thickening of the stomach, despite partial decompression. No evidence for gastric obstruction. In addition, there is abnormal mucosal thickening of the colon which is predominantly decompressed. No evidence for bowel obstruction. PELVIS: Appendix: 6 mm appendicolith noted in the proximal appendix the appendix distal to the appendicolith is within normal limits measuring up to 6 mm. No obvious periappendiceal fat stranding, accounting for respiratory artifact in this region. Bladder: Unremarkable. No mass. Reproductive: Unremarkable as visualized. ABDOMEN and PELVIS: Intraperitoneal space: Unremarkable. No free air. No significant fluid collection. Bones/joints: No acute fracture. No dislocation. Soft tissues: Unremarkable. Vasculature: Unremarkable. No abdominal aortic aneurysm. Lymph nodes: Unremarkable. No enlarged lymph nodes. IMPRESSION: 1. 6 mm appendicolith noted in the proximal appendix the appendix distal to the appendicolith is within normal limits measuring up to 6 mm. No obvious periappendiceal fat stranding, accounting for respiratory artifact in this region. Suspect normal variation. Please correlate with clinical symptoms. 2. There is abnormal mucosal thickening of the stomach, despite partial decompression. No evidence for gastric obstruction. Findings are most consistent with gastritis. 3. In addition, there is abnormal mucosal thickening of the colon which is predominantly decompressed. No evidence for bowel obstruction. Coexisting inflammatory infectious colitis are suspected. No free intraperitoneal fluid or pneumoperitoneum. Electronically signed by: Allen Russo MD 10/27/22 01:01 AM KUB X-Ray 10/27/22 03:49 KUB HISTORY: Acute generalized abdominal pain with nausea and vomiting abdominal pain COMPARISON: CT abdomen and pelvis 10/26/2022 FINDINGS: Nonobstructive bowel gas pattern. Contrast noted within the urinary bladder with contrast opacified renal parenchyma.. No renal calculi. No ureteral calculi. No pneumoperitoneum or pneumatosis. No fracture. IMPRESSION: 1. Nonobstructive bowel gas pattern. 2. There is contrast within the urinary bladder and kidneys secondary to the contrast enhanced exam obtained 9 hours earlier. Correlate with laboratory analysis to exclude decreased renal function. ACT 112: Negative or not required by law. The above report was generated using voice recognition software. It may contain grammatical, syntax or spelling errors. Electronically signed by: Sandoval Sin M.D. 10/27/2022 8:48 AM Renal Ultrasound 10/28/22 09:38 RENAL ULTRASOUND HISTORY: abd pain/urine retention/flank pain COMPARISON: Abdomen and pelvis CT 10/26/2022. FINDINGS: Right kidney: 11.5 cm. No hydronephrosis. Diffusely echogenic. Left kidney: 12.0 cm. No hydronephrosis. Diffuse echogenic. Bladder: No bladder wall thickening. The bilateral ureteral jets were not identified. Miscellaneous: Small amount of pelvic free fluid. IMPRESSION: 1. Echogenic kidneys. This can be seen in the setting of a glomerulonephritis or pyelonephritis. 2. Small amount of pelvic free fluid. 3. Normal bladder. ACT 112: Negative or not required by law. Electronically signed by: Leonidas Powell M.D. 10/28/2022 11:34 AM Medications Administered Current Inpatient Medications Pantoprazole Sodium 40 mg/ (Syringe) 10 mls @ 5 mls/min IV BID CHRISITNE Stop: 11/26/22 04:59 Last Admin: 10/28/22 07:17 Dose: 5 mls/min Acetaminophen (Ofirmev) 1,000 mg in 100 mls @ 400 mls/hr IV Q8H PRN PRN Reason: Pain Stop: 10/30/22 10:32 Last Infusion: 10/28/22 07:17 Dose: Infused Lactated Ringer's (Lr) 1,000 mls @ 150 mls/hr IV .Q6H40M CHRISTINE Stop: 11/26/22 18:59 Last Admin: 10/28/22 10:02 Dose: 150 mls/hr Ampicillin Sodium/Sulbactam Sodium 3,000 mg/ Sodium Chloride 108 mls @ 200 mls/hr IV Q6H [facility]; Protocol Stop: 10/29/22 19:59 Last Infusion: 10/28/22 07:51 Dose: Infused Ondansetron HCl (Ondansetron Inj 2 Mg/Ml 2 Ml Vial) 4 mg IV Q4H PRN PRN Reason: Nausea Stop: 11/26/22 03:48 Last Admin: 10/28/22 03:08 Dose: 4 mg
--- NOTE | 2022-10-28 14:43 | Gastroenterology Progress Note ---
Date of Service October 28, 2022 Assessment & Plan (1) Bacteremia: Plan: I had discussed results of testing today with the patients parents and explained that likely his symptoms are stemming from his bacteremia. Would suspect that as the bacteremia improves he should start to feel better. He is on antibiotics currently and is to be seen by ID. Admission and Anticipated Discharge Date Admission Date: October 27, 2022 Supervising Physician Co-Signing Physician Notes Agree with BETO Verduzco as above Abd: Soft, NT, ND, +BS Continue current therapy and supportive care No role for invasive GI testing at present Patient is scheduled for outpatient workup in [place] with GI team Subjective Patient sleeping and lethargic today. Still reportedly having nausea, emesis and diarrhea per patient's parents at bedside. I spoke with both of his parents. They mention that he is still having nausea and emesis and has not been doing any better since admission. He recently was also found to have strep pyogenes bacteremia. I had a discussion today with parents about findings thus far. I explained that likely the main cause of his symptoms are his bacteremia and that once this improves he should start to feel better. stool studies were unremarkable. Physical Exam Respiratory: normal respiratory effort, lungs clear to auscultation Cardiovascular: RRR, no murmur, no edema Gastrointestinal (Abdomen): normal bowel sounds, soft, nontender, no hepatosplenomegaly Results & Data Results & Data Vital Signs (Past 12 Hours) Vital Signs Temp Pulse Resp BP Pulse Ox O2 Del Method 10/28/22 07:26 Room Air 10/28/22 07:30 97.9 F 90 16 131/85 95 Room Air PG Care Time/CCT Total # of Minutes Spent Total Time Spent with Patient: Total time spent is greater than 50% in coordination of care (as documented) at patient's floor/unit and/or counseling patient: Coding Level of Care Code 09306 SUB INP/OBS CARE 2/35MIN Diagnoses Bacteremia R78.81 Time Spent (min) 35
[2022-10-28] MEDS ORDERED: CLINDAMYCIN/D5W 900 MG/50 ML BAG IV SCH (15:15)
[2022-10-28 16:29] LABS: BUN Creatinine Ratio 14.2 (10-20); Calcium 8.5 mg/dl (8.6-10.3); Creatinine Clr Calc Pharmacy 71.3 ml/min; Est GFR (African American) 63.1 ml/min; Est GFR (Non-African American) 54.5 ml/min; Potassium 3.3 mmol/L (3.5-5.1)
[2022-10-28] MEDS: CLINDAMYCIN/D5W 900 MG/50 ML BAG IV SCH ×2 (16:50→23:41)
[2022-10-28] MEDS: PENICILLIN G POTASSIUM 4 MU in DEXTROSE 5% 100 ML IV SCH ×2 (17:28→20:56)
[2022-10-28] MEDS ORDERED: PROCHLORPERAZINE 5 MG in SYRINGE 4 ML IV PRN (18:13)
[2022-10-28] MEDS ORDERED: Nursing to Pharmacy Communication SCH (18:15)
[2022-10-28] MEDS: ACETAMINOPHEN 1,000 MG/100 ML VIAL IV SCH (18:55)
[2022-10-28] MEDS ORDERED: ENOXAPARIN INJ 40 MG/0.4 ML SYR SQ ONE (19:06)
[2022-10-29] MEDS: MELATONIN 3 MG TAB PO PRN (00:28)
[2022-10-29] MEDS: LACTATED RINGER'S 1,000 ML IV SCH ×4 (00:29→20:42)
[2022-10-29] MEDS: PENICILLIN G POTASSIUM 4 MU in DEXTROSE 5% 100 ML IV SCH ×6 (01:50→20:43)
[2022-10-29] MEDS: ACETAMINOPHEN 1,000 MG/100 ML VIAL IV SCH ×3 (03:13→20:43)
[2022-10-29] MEDS: CLINDAMYCIN/D5W 900 MG/50 ML BAG IV SCH ×2 (07:00→17:04)
[2022-10-29] MEDS ORDERED: SODIUM CHLORIDE 0.65% NA SOLN 45 ML (OCEAN) ONE (07:20)
[2022-10-29 07:41] LABS: Basophils # (auto) 0.05 K/uL (0-0.2); Basophils % (auto) 0.4 %; Eosinophils # (auto) 0.13 K/uL (0-0.50); Eosinophils % (auto) 1.1 %; Hematocrit (blood only) 36.6 % (42.0-52.0); Hemoglobin 12.7 g/dl (14.0-18.0); Immature Granulocytes # (auto) 0.48 K/uL (0.01-0.20); Immature Granulocytes % (auto) 4.1 %; Lymphocytes # (auto) 0.85 K/uL (1.2-3.4); Lymphocytes % (auto) 7.3 %; Mean Corpuscular Hemoglobin 30.8 pg (25.0-34.0); Mean Corpuscular Hgb Conc 34.7 g/dL (32.0-36.0); Mean Corpuscular Volume 88.8 fL (80.0-100.0); Mean Platelet Volume 10.1 fL (9.4-12.4); Monocytes # (auto) 1.15 K/uL (0.11-0.59); Monocytes % (auto) 9.9 %; Neutrophils # (auto) 8.98 K/uL (1.40-6.50); Neutrophils % (auto) 77.2 %; Platelet Count 146 K/uL (130-400); RDW Coefficient of Variation 12.9 % (11.5-14.5); Red Blood Count 4.12 M/uL (4.70-6.10); White Blood Count 11.64 K/ul (4.8-10.8)
[2022-10-29 08:05] LABS: Albumin Level 2.6 gm/dl (3.4-5.0); Bilirubin,Total 0.6 mg/dl (0.2-1.0); Calcium 8.2 mg/dl (8.6-10.3); Magnesium 2.1 mg/dl (1.7-2.4); Potassium 3.1 mmol/L (3.5-5.1)
[2022-10-29 08:11] LABS: Albumin Globulin Ratio 0.9 (0.9-2); BUN Creatinine Ratio 12.8 (10-20); C Reactive Protein 15.64 mg/dl (0-0.5); Est GFR (African American) 64.9 ml/min; Globulin 2.8 gm/dl (2.5-4.0); Phosphorus 2.4 mg/dl (2.5-4.9); Total Protein 5.4 gm/dl (6.0-8.3)
--- NOTE | 2022-10-29 08:19 | Hospitalist Progress Note ---
Date of Service October 29, 2022 Assessment & Plan (1) Abdominal pain: Plan: 22M with no significant PMH who presented with abdominal pain nausea and vomiting since Wednesday 10/25. Abdominal pain -Labs on admission: WBC 22.42. Hgb 18.2. Na+ 133, BUN 24, Cr 1.53. T. bili 1.5. Entero/Rhino virus also detected on respiratory panel * Procalcitonin elevated (61), ESR/CRP (elevated), GI PCR panel (enterovirus +), KUB all pending (large stool volume, otherwise unremakable) -CTAP: Abnormal mucosal thickening of the stomach consistent with gastritis, abnormal mucosal thickening of colon suspicious of inflammatory colitis. * 6mm appendicolith noted in the proximal appendix but did not correlate with clinical symptoms. Suspect artifact. Gram Positive Bacteremia (Strep Pyogenes - Group A Strep) - Patient SIRS + GAS Bacteremia * ID consulted d/t Gram + Bacteremia (likely a/w Group A Strep, urine cultures negative) - continue Penicillin G and Clindamycin * CRP and Procal downtrending, but remain elevated * Ongoing hydration with LR @ 150 ml/hr * Continue IV Tylenol, clear liquid diet as tolerated * Surveillance cultures pending --- Continue Penicillin G and Clindamycin, continue LR, surveilance cultures pending Acute Kidney Injury - Nephrology consulted d/t positive urinalysis, rising creatinine, lack of urination, and non-specific imaging * Urinalysis positive on admission: 3+ protein, 2+ blood, + nitrites, 5-10 WBC, 1+ bacteria * Creatinine rising to 1.86 on 10/28, downtrending to 1.72 today * Normal Creatinine Kinase * Nephrology suspects relation to GAS bacteremia, but recommends further evaluation with serologies and 24 hour urine given UA, pending Gastritis/Colitis - Gastritis/Colitis possible a/w enterovirus infection, clinical picture remains inconsistent given patient's elevated ESR/CRP/ProCal * ID consulted d/t ongoing epigastric pain and significant gastritis on CT - suspects that symptoms are related to patients bacteremia * Will continue Protonix 40 mg BID * Patient remains unable to eat d/t lack of appetite and epigastric discomfort Appendicolith (incidental) - Surgery recommending against management of appendicolith, notes findings more consistent with gastritis/colitis, unlikely appendicitis * GI recommending acid suppression and advancing diet as tolerated Code: Full code Dispo: Med-Surg FEN/GI: Clears. LR @ 150 ml/hr DVT Prophylaxis: None, ambulation as tolerated, Lovenox ordered PT/OT: No Consults: GI, Surgery, Nephrology (2) SIRS (systemic inflammatory response syndrome): (3) Viral gastroenteritis: (4) Gram-positive bacteremia: Admission and Anticipated Discharge Date Admission Date: October 27, 2022 Supervising Physician Co-Signing Physician Notes ATTESTATION I also saw the patient and confirmed davis portions of the history and exam. I agree with the impression and plan in the resident documentation, and as summarized below. Upon our exam, the patient had just gotten out of the shower. He notes that he is feeling improved; he was able to shower without any lightheadedness or dizziness. He reports that his abdominal pain and cramping are much improved. Both his parents are bedside and notes that he is looking more like himself. EXAM 142/87, 82, 16, 36.9, 96% on room air Pleasant alert. Voice seems stronger Throat is mildly erythematous, no exudate appreciated, there is bilateral tonsillar hypertrophy, symmetrical. Airway is widely patent. Neck is supple; minimal anterior cervical lymphadenopathy. Heart is regular, auscultated rate mid 60s respirations are nonlabored The abdomen is soft, minimal tenderness, no rebound DATA Labs WBC 11.64, hemoglobin 12.7, platelet count 146 ESR 69 Sodium 136, potassium 3.1, BUN 22, creatinine 1.72 CRP 15.64, continuing to downtrend Procalcitonin 25.45, continue to downtrend Imaging CT scan of the abdomen and pelvis 10/26/2022 shows a 6 mm appendicolith, without associated inflammatory change. Also noted is thickening of the stomach mucosa, consistent with gastritis. Also noted thickening of the colon suggestive of infectious colitis. KUB completed showed nonobstructive bowel gas pattern. He did note contrast within the urinary bladder and kidneys secondary to CT scan 9 hours previous. Renal ultrasound completed 10/28/2022 demonstrate echogenic kidneys, a small amount of pelvic free fluid, and normal bladder. Micro Blood cultures dated 10/27/2022 demonstrating growth of group A beta strep, 2/2 Surveillance blood cultures dated 10/28/2022 are still pending Urine culture dated 10/27/2022 shows moderate counts of probable skin mica. IMPRESSION & PLAN Streptococcal sepsis, POA Acute renal failure Remains hemodynamically stable, subjectively looks much better today overall. Inflammatory markers continue to trend down, serum creatinine stable to slightly improved; urine output has increased. Continue IV fluids, monitor urine output, BMP Supplement potassium Continue IV penicillin and clindamycin for now Repeat serial blood cultures until cleared Continue to trend procalcitonin, CBC and inflammatory markers Gastritis Rather significant gastric wall thickening on admission CT -unsure if this is related to his infection, or pre-existing. As noted previously, he has been following with gastroenterology for various GI type symptoms. Continue IV PPI, twice daily Discussed with gastroenterology Additional per resident documentation Subjective 10/27: Sam is a 22M who presented with nausea, hematemesis (scant), and abdominal pain. Patient notes that he has been constipated since Wednesday and has just urinated for the first time since Wednesday (small amount, dark kayla). Patient notes that he feels unchanged since admission, he continues to have significant nausea and diffuse abdominal pain. Patient endorses fevers and chills, w/o diaphoresis. Patient denies recent sick contacts or preceding URI symptoms. He does note mild pain in his throat and ongoing hoarse voice. Patient's sister was at bedside during conversation and examination, per patient's request. 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 10/28: Patient notes mild improvement of symptoms, states that his nausea is somewhat improved by the Phenergan dose, but that he continues to have abdominal pain and spasms of discomfort. He notes ongoing fatigue, but feels as thought his fevers/chills have improved. Patient denies any chest pain, dyspnea, headaches, or lightheadedness. He notes that his throat continues to hurt, which is preventing him from eating well, though he continues to attempt to drink. Patient notes that has has had small attempts to move his bowels, without diarrhea. He states that he only urinates scant amounts when he tries to move his bowels. Otherwise, no urine output. Upon discussion, patient notes that it does not hurt when he urinates. He notes that he is sexually active with a single female partner, has had recent negative STD testing, and has had no new sexual partners since. He has not had any penile discharge or rashes. 10/29: 0800 Today Sam notes that he generally feels improved. He states that he is no longer having fevers and chills and is not experiencing as much fatigue. Patient notes that while his nausea has generally resolved, he continues to have spasms of epigastric discomfort that cause him to throw up. The pain in his abdomen and lack of appetite are preventing him from eating. He notes that he continues to attempt PO hydration. He has been urinating more frequently and states that his urine is clear, yellow. He denies diarrhea. 1400 Patient noted significant improvement and had successfully taken a shower, sat in bedside chair, and ambulated the room. Discussed with parents upon afternoon evaluation. Review of Systems Review of Systems: As per HPI Physical Exam Physical Exam: General: Comfortable, occasional painful epigastric spasm, non-toxic, conversive HEENT: PERRLA. Normal conjunctiva, anicteric sclera. Oropharyngeal erythema w/o exudate. Improved, hoarse voice. Respiratory: Normal respiratory effort, CTABL, no wheezing/rhonchi/rales Cardiovascular: RRR without murmurs, gallops, or rubs. No edema. GI: Soft abdomen, normoactive bowel sounds, mild epigastric TTP, no CVA tenderness, no rebound or guarding Neuro: Alert and oriented x3. Results & Data Results & Data Vital Signs (Past 12 Hours) Vital Signs Temp Pulse Resp BP Pulse Ox O2 Del Method 10/29/22 07:56 36.8 C 90 16 135/84 96 Room Air 10/29/22 06:05 37.0 C 82 16 147/90 H 97 Room Air 10/28/22 20:55 37.7 C H 89 16 136/76 97 Room Air Resident Activity Tracking Resident Involvement: Resident Care Provided Care Provided: Adult Hospital Medicine
[2022-10-29] MEDS ORDERED: POTASSIUM PHOS 3 MMOL/1 ML INFUSION IV STA (08:22)
[2022-10-29] MEDS ORDERED: POTASSIUM CHLORIDE CRTAB 20 MEQ TABCR PO STA (08:22)
[2022-10-29] MEDS ORDERED: POTASSIUM PHOSPHATE 15 MMOL in SODIUM CHLORIDE 0.9% 250 ML IV ONE (09:00)
[2022-10-29] MEDS: ENOXAPARIN INJ 40 MG/0.4 ML SYR SQ SCH (09:21)
[2022-10-29] MEDS: PANTOprazole 40 MG in SYRINGE 0 ML IV SCH ×2 (09:38→20:41)
--- NOTE | 2022-10-29 10:54 | Infectious Disease Progress Nt ---
Date of Service October 29, 2022 Assessment & Plan (1) Gram-positive bacteremia: (2) Streptococcal pharyngitis: (3) Acute kidney injury: (4) Colitis: (5) Appendicolith: Plan 22 yo M with no PMH who presented on 10/26 with N/V, abd pain, diarrhea, found to have Strep pharyngitis c/b Strep pyogenes bacteremia, entero/rhinovirus. On presentation, he was afebrile, HR 121, normotensive. Labs showed WBC 22.42, Hb 18.2, Cr 1.53, Tbili 1.5, ESR 66, procalcitonin 61.6. RVP was positive for entero/rhinovirus. CT A/P with contrast showed a 6 mm appendicolith, with no obvious periappendiceal fat stranding, abnormal mucosal thickening of stomach most consistent with gastritis, and abnormal mucosal thickening of colon, coexisting inflammatory infectious colitis suspected. Surgery felt the appendicolith was an incidental finding, not the cause of his symptoms. Stool PCR panel was negative. Pt was initially managed for suspected infectious gastroenteritis. Pt became febrile on 10/27 to Tmax of 38.2. BCx were collected. UA showed 5-10 WBCs, 5-10 epis. Pt was initially started on ceftriaxone on 10/27 due to a concern for urinary source of infection, then changed to amp-sulbactam. UCx grew mixed mica--pt denied dysuria, but had decreased UOP. BCx ultimately grew Strep pyogenes in 2/4 bottles, for which he is now on penicillin G and clindamycin. The GAS bacteremia is likely secondary to Strep pharyngitis. There are rare cases of colitis associated with GAS bacteremia, which could explain his current GI symptoms. Today, pt's WBC has downtrended from 16.8 --> 11.6. Cr downtrending to 1.72. CRP 24 --> 15.6. Procalcitonin 31.6 --> 25.5. Pt continues to feel unwell with N/V/ D, although improving in frequency. Micro: 10/28 BCx x2: pending 10/27 BCx x2: GPCs in chains in 2/4 bottles. PCR panel shows Strep pyogenes 10/27 UCx: mixed growth Abx: Penicillin G 10/28 - Clindamycin 10/28 - Amp-sulbactam 10/27 - 10/28 Ceftriaxone 10/27 Problems: #Strep pyogenes pharyngitis c/b bacteremia #Enterovirus/rhinovirus #KOBI #Diarrhea #Abdominal pain #Nausea/vomiting #Appendicolith #Colitis Recommendations: -Follow-up 10/28 repeat BCx -Continue penicillin G and clindamycin -If continued clinical improvement and pt is able to take and keep down PO medications, hope to be able to transition to high dose amoxicillin 1 g PO q8h as bacteremia step-down therapy -Counseled family about transmission of Strep pharyngitis, and that if close contacts begin having symptoms of fever/sore throat, they should get tested for strep throat Will continue to follow Admission and Anticipated Discharge Date Admission Date: October 27, 2022 Subjective Subsequent visit was provided via telemedicine using two-way real-time interactive telecommunication between the patient and the telemedicine provider. For the duration of the visit, the provider was performing the assessment from a different facility than the patient. This includesuse of bluetooth stethoscope forauscultationperformed by the telepresenter that the telemedicine provider can hear if described in the physical exam. Mail Reader contact information: Please call [facility] . (Phone Number For Physician Use Only) After establishing a telemedicine visit, patient was: Patient was verified with two unique identifiers, Patient/authorized rep acknowledged consent and understanding and Gave permission to continue telehealth session Time Spent with Patient: Subsequent => 25 min Pt continues with N/V/D, although with improving frequency WBC downtrended to 11.6 Cr slowly downtrending to 1.72 Clindamycin added yesterday Review of System A complete ROS was performed and is negative except as mentioned in the HPI. Physical Exam Physical Exam: GEN: fatigued appearing RESP: No increased work of breathing NEURO: Alert and oriented. Answers all questions appropriately. Speech not slurred. PSYCH: Normal mood, affect appropriate. Results & Data Vital Signs (Past 12 Hours) Vital Signs Temp Pulse Resp BP Pulse Ox O2 Del Method 10/29/22 07:56 36.8 C 90 16 135/84 96 Room Air 10/29/22 06:05 37.0 C 82 16 147/90 H 97 Room Air Laboratory Results Short CBC 10/29/22 Range/Units 07:18 WBC 11.64 H (4.8-10.8) K/ul Hgb 12.7 L (14.0-18.0) g/dl Hct 36.6 L (42.0-52.0) % Plt Count 146 (130-400) K/uL BMP 10/28/22 10/29/22 15:37 07:18 Sodium 136 136 Potassium 3.3 L 3.1 L Chloride 103 103 Carbon Dioxide 23 25 BUN 25 H 22 Creatinine 1.76 H 1.72 H Glucose 94 97 Calcium 8.5 L 8.2 L Cardiac Enzymes 10/28/22 Range/Units 15:37 Total Creatine Kinase 148 (30-223) U/L Liver Function 10/29/22 Range/Units 07:18 Total Bilirubin 0.6 (0.2-1.0) mg/dl AST 12 L (13-39) U/L ALT 17 (7-52) U/L Alkaline Phosphatase 45 (34-104) U/L Albumin 2.6 L (3.4-5.0) gm/dl Medications Administered Current Inpatient Medications Enoxaparin Sodium (Enoxaparin Inj 40 Mg/0.4 Ml Syr) 40 mg SQ QAM CHRISTINE Stop: 11/28/22 08:59 Pantoprazole Sodium 40 mg/ (Syringe) 10 mls @ 5 mls/min IV BID CHRISTINE Stop: 11/26/22 04:59 Last Admin: 10/29/22 09:38 Dose: 5 mls/min Lactated Ringer's (Lr) 1,000 mls @ 150 mls/hr IV .Q6H40M CHRISTINE Stop: 11/26/22 18:59 Last Admin: 10/29/22 07:14 Dose: 150 mls/hr Clindamycin Phosphate (Cleocin/D5w) 900 mg in 50 mls @ 100 mls/hr IV Q8H [facility] Stop: 10/30/22 15:14 Last Infusion: 10/29/22 00:11 Dose: Infused Penicillin G Potassium 4 mu/ (Dextrose) 108 mls @ 100 mls/hr IV Q4H [facility]; Protocol Stop: 11/11/22 15:29 Last Infusion: 10/29/22 10:10 Dose: Infused Prochlorperazine 5 mg/ Syringe 5 mls @ 5 mls/min IV Q6H PRN PRN Reason: Nausea And Vomiting Stop: 11/27/22 18:12 Last Admin: 10/28/22 23:42 Dose: 5 mls/min Acetaminophen (Ofirmev) 1,000 mg in 100 mls @ 400 mls/hr IV Q8H [facility]RISTINE Stop: 10/31/22 18:59 Last Infusion: 10/29/22 04:23 Dose: Infused Potassium Phosphate 15 mmol/ (Sodium Chloride) 255 mls @ 88 mls/hr IV ONE ONE Stop: 10/29/22 11:53 Last Admin: 10/29/22 09:55 Dose: 88 mls/hr Melatonin (Melatonin 3 Mg Tab) 3 mg PO HS PRN PRN Reason: Sleep Stop: 11/27/22 23:50 Last Admin: 10/29/22 00:28 Dose: 3 mg Ondansetron HCl (Ondansetron Inj 2 Mg/Ml 2 Ml Vial) 4 mg IV Q4H PRN PRN Reason: Nausea Stop: 11/26/22 03:48 Last Admin: 10/28/22 03:08 Dose: 4 mg
--- NOTE | 2022-10-29 13:50 | Nephrology Progress Note ---
Date of Service October 29, 2022 Assessment & Plan (1) Acute kidney injury: (2) Hematuria: (3) Proteinuria: (4) SIRS (systemic inflammatory response syndrome): (5) Bacteremia: Plan 22-year-old male with no past medical history, no known history of CKD admitted to the hospital with symptoms suggestive of gastroenteritis, fever, chills and now diagnosed with sepsis with streptococcal bacteremia. Creatinine was 1.5 on admission with no prior history of CKD or baseline available, over last 2 days creatinine slightly worsened to creatinine up to 1.9 this morning. urinalysis with 3+ proteinuria, 2+ hematuria. Renal imaging suggestive of echogenic kidney and concern for infectious versus inflammatory disease. Differentials for acute kidney injury is brought in this case specially with sepsis as well as proteinuria and hematuria. Could be prerenal with decreased p.o. intake for several days, even though he received IV fluid bolus and IV hydration ongoing it may take few days for kidney function to recover. May have some effect from IV contrast exposure as well. Even though post streptococcal GN is a possibility however, timeline does not clearly fit although possible. considering young age, unknown baseline, hematuria, proteinuria IgAN remains a possibility as well. Renal function remained relatively stable, creatinine was 1.7 this morning, clinically seems doing slightly better, leukocytosis improving. -- Continue on IV fluid while p.o. intake remains poor, monitor urine output -- antibiotic management as per ID. -- 24 hour urine for proteinuria, serological workup currently pending. -- continue to avoid all NSAIDs. -- If clinically improve with antibiotic but renal function continues to worsen, may need to consider renal biopsy however do not see any indication at this time -- discussed with Sam's parents over telephone. Overall he is doing slightly better compared to last to 3 days and hopefully kidney function will start to improve Will follow. Admission and Anticipated Discharge Date Admission Date: October 27, 2022 Subjective Sam was seen and evaluated in his room this morning. Overall he looks slightly better today, awake and alert, still notices some diffuse abdominal pain. No further nausea or vomiting. Renal function staying relatively stable over last 3 days, creatinine was 1.7 this morning. Blood pressure slightly elevated, continued on LR. Decent urine output. Review of Systems Review of Systems: detailed review of system was done and pertinent positives and negatives are mentioned above. Physical Exam Constitutional: WD/WN, vitals as above + ill appearing; no acute distress Eyes: + anicteric sclerae Neck: normal visual inspection Thyroid: no thyromegaly Respiratory: no respiratory distress Auscultation: lungs clear to auscultation bilaterally Musculoskeletal: Extremities: extremities normal to inspection Skin: no rashes Neurologic: no focal motor deficits and not confused Psychiatric: Orientation: alert and oriented x 3 Affect: euthymic affect Results & Data Vital Signs (Past 12 Hours) Vital Signs Temp Pulse Resp BP Pulse Ox O2 Del Method 10/29/22 13:24 68 16 148/81 H 99 Room Air 10/29/22 07:56 36.8 C 90 16 135/84 96 Room Air 10/29/22 06:05 37.0 C 82 16 147/90 H 97 Room Air PG Care Time/CCT Total # of Minutes Spent Total Time Spent with Patient: Total time spent is greater than 50% in coordination of care (as documented) at patient's floor/unit and/or counseling patient: Coding Level of Care Code 82625 SUB INP/OBS CARE 3/50MIN Diagnoses Acute kidney injury N17.9 Hematuria R31.9 Proteinuria R80.9 SIRS (systemic inflammatory response syndrome) R65.10 Bacteremia R78.81
[2022-10-29 18:48] LABS: Appearance Urine Clear (Clear); Bacteria Urine Automated Negative (Negative); Bilirubin Urine Negative (Negative); Blood Urine Trace (Negative); Color Urine Yellow; Glucose Urine UA Negative (Negative); Ketones Urine 1+ (Negative); Leukocyte Esterase Urine Negative (Negative); Nitrite Urine Negative (Negative); Protein Urine 2+ (Negative); RBC Urine Automated 0-4 /hpf (0-4); Specific Gravity Urine 1.029 (1.000-1.030); Urobilinogen Urine Negative (Negative); pH Urine 6.5 (4.5-7.5)
[2022-10-29 18:57] LABS: Urine Total Protein 186.5 mg/dl
[2022-10-29 19:52] LABS: Total Protein 24 Hour Urine 1324.2 mg/24 Hr (0-149.1)
[2022-10-30] MEDS: CLINDAMYCIN/D5W 900 MG/50 ML BAG IV SCH ×2 (00:06→06:57)
[2022-10-30] MEDS: PENICILLIN G POTASSIUM 4 MU in DEXTROSE 5% 100 ML IV SCH ×6 (02:30→18:36)
[2022-10-30] MEDS: ACETAMINOPHEN 1,000 MG/100 ML VIAL IV SCH ×2 (02:37→11:52)
[2022-10-30] MEDS: LACTATED RINGER'S 1,000 ML IV SCH ×3 (03:39→16:10)
--- NOTE | 2022-10-30 06:47 | Hospitalist Progress Note ---
Date of Service October 30, 2022 Assessment & Plan (1) Abdominal pain: Plan: 22M with no significant PMH who presented with abdominal pain nausea and vomiting since Wednesday 10/25. Abdominal pain -Labs on admission: WBC 22.42. Hgb 18.2. Na+ 133, BUN 24, Cr 1.53. T. bili 1.5. Entero/Rhino virus also detected on respiratory panel * Procalcitonin elevated (61), ESR/CRP (elevated), GI PCR panel (enterovirus +), KUB (large stool volume, otherwise unremakable) -CTAP: Abnormal mucosal thickening of the stomach consistent with gastritis, abnormal mucosal thickening of colon suspicious of inflammatory colitis. * 6mm appendicolith noted in the proximal appendix but did not correlate with clinical symptoms. Suspect artifact. Gram Positive Bacteremia (Strep Pyogenes - Group A Strep) - Patient SIRS + GAS Bacteremia * ID consulted d/t Gram + Bacteremia (likely a/w Group A Strep, urine cultures negative) * CRP and Procal downtrending * Hydration with LR @ 150 ml/hr, discontinued * Continue IV Tylenol, advance diet as tolerated * Surveillance cultures negative --- Continue Penicillin G and discontinue Clindamycin, continue LR --- Discontinue LR, encouraged ongoign PO hydration, transition to regular (GF) diet at dinner --- Will transition to PO antibiotics pending dinner, will transition to high dose Amoxicillin 1 g PO q8h Acute Kidney Injury - Nephrology consulted d/t positive urinalysis, rising creatinine, lack of urination, and non-specific imaging * Urinalysis positive on admission: 3+ protein, 2+ blood, + nitrites, 5-10 WBC, 1+ bacteria * Creatinine rising to 1.86 on 10/28, downtrending to 1.66 today * Normal Creatinine Kinase * Nephrology suspects relation to GAS bacteremia, but recommends further evaluation, appreciate recommendations --- Patient's 24 hour urine showed proteinuria of 1.3 g, while spot urine showed improvement in proteinuria and microscopic hematuria --- Serologies pending, slow improvement of Cr to 1.66 Gastritis/Colitis - Gastritis/Colitis possible a/w enterovirus infection, clinical picture remains inconsistent given patient's elevated ESR/CRP/ProCal * GI consulted d/t ongoing epigastric pain and significant gastritis on CT - suspects that symptoms are related to patients bacteremia * Will continue Protonix 40 mg BID --- Patient's epigastric spasms have resolved and appetite is improving, advancing diet as tolerated Appendicolith (incidental) - Surgery recommending against management of appendicolith, notes findings more consistent with gastritis/colitis, unlikely appendicitis * GI recommending acid suppression and advancing diet as tolerated Code: Full code Dispo: Med-Surg FEN/GI: Regular, dc Fluids DVT Prophylaxis: Ambulation/SCD (nosebleeds on Lovenox) PT/OT: No Consults: GI, Surgery, Nephrology (2) SIRS (systemic inflammatory response syndrome): (3) Viral gastroenteritis: (4) Gram-positive bacteremia: Admission and Anticipated Discharge Date Admission Date: October 27, 2022 Supervising Physician Co-Signing Physician Notes I personally examined the patient and verified all davis points of history and exam, discussed case, and agree with decision making and plan documented by Dr. Duvall. Patient feeling much better today, hopeful to advance diet, discussed planned approach and recommend gluten-free due to gluten intolerance. Appreciate ID recommendations, will transition to p.o. antibiotics. Continue to monitor kidney function. Parents at bedside. Subjective 10/30: Sam stats that he feels much better today, he notes that his nausea and emesis are improved and that he is no longer having the cramping epigastric pain. He states that he is urinating more frequently and that it is clear-yellow in color. He endorses occasional loose bowel movements, but no abdominal pain, dark stools or hematochezia. Patient denies ongoing fevers/chills and endorses improvement in his appetite. Review of Systems Review of Systems: As per HPI Physical Exam Physical Exam: General: Comfortable, non-toxic, conversive, alert HEENT: PERRLA. Normal conjunctiva, anicteric sclera. Oropharyngeal erythema (improving) w/o exudate. Hoarse voice (resolved). Respiratory: Normal respiratory effort, CTABL, no wheezing/rhonchi/rales Cardiovascular: RRR without murmurs, gallops, or rubs. No edema. GI: Soft abdomen, normoactive bowel sounds, no TTP, no CVA tenderness, no rebound or guarding Neuro: Alert and oriented x3. Results & Data Results & Data Vital Signs (Past 12 Hours) Vital Signs Temp Pulse Resp BP Pulse Ox O2 Del Method 10/29/22 20:41 37.7 C H 87 16 146/80 H 97 Room Air Resident Activity Tracking Resident Involvement: Resident Care Provided Care Provided: Adult Hospital Medicine
[2022-10-30 07:10] LABS: Albumin Globulin Ratio 0.9 (0.9-2); Albumin Level 2.5 gm/dl (3.4-5.0); BUN Creatinine Ratio 10.8 (10-20); Bilirubin,Total 0.7 mg/dl (0.2-1.0); Creatinine Clr Calc Pharmacy 75.6 ml/min; Est GFR (African American) 67.7 ml/min; Est GFR (Non-African American) 58.5 ml/min; Globulin 2.8 gm/dl (2.5-4.0); Magnesium 1.9 mg/dl (1.7-2.4); Phosphorus 2.6 mg/dl (2.5-4.9); Potassium 3.2 mmol/L (3.5-5.1); Total Protein 5.3 gm/dl (6.0-8.3)
[2022-10-30 07:31] LABS: Hematocrit (blood only) 35.2 % (42.0-52.0); Hemoglobin 12.1 g/dl (14.0-18.0); Mean Corpuscular Hemoglobin 30.8 pg (25.0-34.0); Mean Corpuscular Hgb Conc 34.4 g/dL (32.0-36.0); Mean Corpuscular Volume 89.6 fL (80.0-100.0); Mean Platelet Volume 10.2 fL (9.4-12.4); Platelet Count 164 K/uL (130-400); RDW Coefficient of Variation 13.2 % (11.5-14.5); RDW Standard Deviation 43.6 fL (36.4-46.3); Red Blood Count 3.93 M/uL (4.70-6.10); White Blood Count 8.25 K/ul (4.8-10.8)
[2022-10-30 08:05] LABS: ALC (manual) 1.24 K/uL (1.2-3.4); ANC (manual) 5.45 K/uL (1.4-6.5); Blast # (manual) 0.08 K/uL (0-0); Blast Cells % (manual) 1 %; Eosinophils # (manual) 0.17 K/uL (0-0.50); Eosinophils % (manual) 2 %; Lymphocytes # (manual) 1.24 K/uL (1.2-3.4); Lymphocytes % (manual) 15 %; Monocytes # (manual) 0.91 K/uL (0.11-0.59); Monocytes % (manual) 11 %; Myelocytes # (manual) 0.33 K/uL (0-0); Myelocytes % (manual) 4 %; Neutrophils # (manual) 5.45 K/uL (1.40-6.50); Neutrophils % (manual) 66 %; Promyelocytes # (manual) 0.08 K/uL (0-0); Promyelocytes % (manual) 1 %
[2022-10-30] MEDS: POTASSIUM CHLORIDE CRTAB 20 MEQ TABCR PO SCH ×2 (08:44→20:41)
[2022-10-30] MEDS: PANTOprazole 40 MG in SYRINGE 0 ML IV SCH ×2 (08:45→20:42)
[2022-10-30] MEDS: ENOXAPARIN INJ 40 MG/0.4 ML SYR SQ SCH (08:51)
--- NOTE | 2022-10-30 11:50 | Nephrology Progress Note ---
Date of Service October 30, 2022 Assessment & Plan (1) Acute kidney injury: (2) Hematuria: (3) Proteinuria: (4) SIRS (systemic inflammatory response syndrome): (5) Bacteremia: Plan 22-year-old male with no past medical history, no known history of CKD admitted to the hospital with symptoms suggestive of gastroenteritis, fever, chills and now diagnosed with sepsis with streptococcal bacteremia. Creatinine was 1.5 on admission with no prior history of CKD or baseline available, over last 2 days creatinine slightly worsened to creatinine up to 1.9 this morning. urinalysis with 3+ proteinuria, 2+ hematuria. Renal imaging suggestive of echogenic kidney and concern for infectious versus inflammatory disease. Differentials for acute kidney injury is brought in this case specially with sepsis as well as proteinuria and hematuria. Could be prerenal with decreased p.o. intake for several days, even though he received IV fluid bolus and IV hydration ongoing it may take few days for kidney function to recover. May have some effect from IV contrast exposure as well. Even though post streptococcal GN is a possibility however, timeline does not clearly fit although possible. considering young age, unknown baseline, hematuria, proteinuria IgAN remains a possibility as well. 24 hour urine proteinuria was 1.3 g however spot urine showed slight improvement in proteinuria and microscopic hematuria. Serological workup still prime pending. Very slow improvement in renal function to creatinine down to 1.66 this morning. Leukocytosis resolved. -- as blood pressure slightly elevated started to have some p.o. intake and receive significant amount of IV fluids since admission, will stop LR and encouraged to increase p.o. intake however, if p.o. intake remains low it would be okay to resume IV fluid. -- serological workup currently pending. -- continue to avoid all NSAIDs. -- no indication for renal biopsy at this time -- discussed with Sam's parents over telephone this morning. Overall he is doing slightly better compared to last to 3 days and hopefully kidney function will start to improve Will follow. Admission and Anticipated Discharge Date Admission Date: October 27, 2022 Subjective Sam was seen and evaluated in his room this morning. Overall he reports feeling slightly better this morning, abdominal pain resolved, had slight vomiting after he had some breakfast. He has been noticing some nosebleed for last few days, after discussion with Sam and his parents it looks like he has history of epistaxis over the years and previously had it cauterized but still has episodes occasionally. Platelet was normal, hemoglobin slightly low at 12.1 possibly some component of hemodilution. WBC normalized. Very slow improvement in renal function, electrolyte acceptable. Voiding normally. Blood pressure slightly elevated. Decent urine output. Review of Systems Review of Systems: detailed review of system was done and pertinent positives and negatives are mentioned above. Physical Exam Constitutional: WD/WN, vitals as above + ill appearing; no acute distress Eyes: + anicteric sclerae ENMT: Nose: + epistaxis Neck: normal visual inspection Respiratory: no respiratory distress Auscultation: lungs clear to auscultation bilaterally Musculoskeletal: Extremities: extremities normal to inspection Skin: no rashes Neurologic: no focal motor deficits Psychiatric: Orientation: alert and oriented x 3 Affect: euthymic affect Results & Data Vital Signs (Past 12 Hours) Vital Signs Temp Pulse Resp BP Pulse Ox O2 Del Method 10/30/22 11:10 37.2 C 86 17 149/89 H 95 Room Air PG Care Time/CCT Total # of Minutes Spent Total Time Spent with Patient: Total time spent is greater than 50% in coordination of care (as documented) at patient's floor/unit and/or counseling patient: Coding Level of Care Code 18920 SUB INP/OBS CARE 3/50MIN Diagnoses Acute kidney injury N17.9 Hematuria R31.9 Proteinuria R80.9 SIRS (systemic inflammatory response syndrome) R65.10 Bacteremia R78.81
--- NOTE | 2022-10-30 15:59 | Infectious Disease Progress Nt ---
Date of Service October 30, 2022 Assessment & Plan (1) Gram-positive bacteremia: (2) Streptococcal pharyngitis: (3) Acute kidney injury: (4) Colitis: (5) Appendicolith: Plan 22 yo M with no PMH who presented on 10/26 with N/V, abd pain, diarrhea, found to have Strep pharyngitis c/b Strep pyogenes bacteremia, entero/rhinovirus. On presentation, he was afebrile, HR 121, normotensive. Labs showed WBC 22.42, Hb 18.2, Cr 1.53, Tbili 1.5, ESR 66, procalcitonin 61.6. RVP was positive for entero/rhinovirus. CT A/P with contrast showed a 6 mm appendicolith, with no obvious periappendiceal fat stranding, abnormal mucosal thickening of stomach most consistent with gastritis, and abnormal mucosal thickening of colon, coexisting inflammatory infectious colitis suspected. Surgery felt the appendicolith was an incidental finding, not the cause of his symptoms. Stool PCR panel was negative. Pt was initially managed for suspected infectious gastroenteritis. Pt became febrile on 10/27 to Tmax of 38.2. BCx were collected. UA showed 5-10 WBCs, 5-10 epis. Pt was initially started on ceftriaxone on 10/27 due to a concern for urinary source of infection, then changed to amp-sulbactam. UCx grew mixed mica--pt denied dysuria, but had decreased UOP. 10/27 BCx ultimately grew Strep pyogenes in 2/4 bottles, for which he is now on penicillin G and clindamycin. Repeat BCx from 10/28 are NGTD. The GAS bacteremia is likely secondary to Strep pharyngitis. There are rare cases of colitis as sociated with GAS bacteremia, which may explain his current GI symptoms. Pt continues to improve, now with resolution of his leukocytosis, and improvement in N/V and PO intake. Micro: 10/28 BCx x2: NGTD 10/27 BCx x2: Group A Strep (S amp, ceftriaxone, penicillin, vanc. R clinda) 10/27 UCx: mixed growth Abx: Penicillin G 10/28 - Clindamycin 10/28 - 10/30 Amp-sulbactam 10/27 - 10/28 Ceftriaxone 10/27 Problems: #Strep pyogenes pharyngitis c/b bacteremia #Enterovirus/rhinovirus #KOBI #Diarrhea #Abdominal pain #Nausea/vomiting #Appendicolith #Colitis Recommendations: -Agree with discontinuing clindamycin for toxin control, as pt is clinically improving -Can transition from ampicillin to amoxicillin 1 g PO q8h when pt is tolerating PO medications and there are no concerns regarding GI absorption. Would complete a 14 day course (10/28 - 11/10) Discussed with primary team. Will sign off. Please page [facility] with further questions. Admission and Anticipated Discharge Date Admission Date: October 27, 2022 Subjective This patient recommendation is based on a telemedicine consult request which was completed asynchronously through chart review and information provided by the primary physician. The patient was not seen or examined today. The evaluation is consultative in nature and all patient care and treatment decisions can either be accepted or rejected by the patient's primary hospital-based treating physician using their own independent medical judgment for their patient. Time Spent Reviewing Chart: 11 - 20 minutes No acute events Tolerating food now, no more vomiting episodes WBC downtrended to 8.25 Cr 1.66 Tmax 37.7 last night Review of System Pt was not seen Physical Exam Physical Exam: Pt was not seen Results & Data Vital Signs (Past 12 Hours) Vital Signs Temp Pulse Resp BP Pulse Ox O2 Del Method 10/30/22 15:35 36.8 C 70 16 134/80 97 Room Air 10/30/22 14:00 36.6 C 10/30/22 11:10 37.2 C 86 17 149/89 H 95 Room Air Laboratory Results Short CBC 10/30/22 Range/Units 06:34 WBC 8.25 (4.8-10.8) K/ul Hgb 12.1 L (14.0-18.0) g/dl Hct 35.2 L (42.0-52.0) % Plt Count 164 (130-400) K/uL BMP 10/30/22 06:34 Sodium 136 Potassium 3.2 L Chloride 104 Carbon Dioxide 25 BUN 18 Creatinine 1.66 H Glucose 91 Calcium 8.0 L Liver Function 10/30/22 Range/Units 06:34 Total Bilirubin 0.7 (0.2-1.0) mg/dl AST 18 (13-39) U/L ALT 18 (7-52) U/L Alkaline Phosphatase 43 (34-104) U/L Albumin 2.5 L (3.4-5.0) gm/dl Urine 10/28/22 Range/Units 16:46 Urine Color Yellow Urine Appearance Clear (Clear) Urine pH 6.5 (4.5-7.5) Ur Specific [place] 1.029 (1.000-1.030) Urine Protein 2+ H (Negative) Urine Glucose (UA) Negative (Negative) Medications Administered Current Inpatient Medications Pantoprazole Sodium 40 mg/ (Syringe) 10 mls @ 5 mls/min IV BID [facility] Stop: 11/26/22 04:59 Last Admin: 10/30/22 08:45 Dose: 5 mls/min Lactated Ringer's (Lr) 1,000 mls @ 150 mls/hr IV .Q6H40M [facility] Stop: 11/26/22 18:59 Last Admin: 10/30/22 10:04 Dose: 150 mls/hr Penicillin G Potassium 4 mu/ (Dextrose) 108 mls @ 100 mls/hr IV Q4H [facility]; Protocol Stop: 11/11/22 15:29 Last Infusion: 10/30/22 14:42 Dose: Infused Prochlorperazine 5 mg/ Syringe 5 mls @ 5 mls/min IV Q6H PRN PRN Reason: Nausea And Vomiting Stop: 11/27/22 18:12 Last Admin: 10/28/22 23:42 Dose: 5 mls/min Acetaminophen (Ofirmev) 1,000 mg in 100 mls @ 400 mls/hr IV Q8H [facility] Stop: 10/31/22 18:59 Last Infusion: 10/30/22 12:18 Dose: Infused Melatonin (Melatonin 3 Mg Tab) 3 mg PO HS PRN PRN Reason: Sleep Stop: 11/27/22 23:50 Last Admin: 10/29/22 00:28 Dose: 3 mg Ondansetron HCl (Ondansetron Inj 2 Mg/Ml 2 Ml Vial) 4 mg IV Q4H PRN PRN Reason: Nausea Stop: 11/26/22 03:48 Last Admin: 10/28/22 03:08 Dose: 4 mg Potassium Chloride (Potassium Chloride Crtab 20 Meq Tabcr) 40 meq PO BID [facility] Stop: 11/01/22 08:59 Last Admin: 10/30/22 08:44 Dose: 40 meq
[2022-10-30] MEDS ORDERED: ACETAMINOPHEN 500 MG TAB PO PRN (18:46)
[2022-10-30] MEDS ORDERED: AMOXICILLIN 500 MG CAP PO SCH (19:00)
[2022-10-30] MEDS ORDERED: Nursing to Pharmacy Communication SCH (19:15)
[2022-10-30] MEDS: AMOXICILLIN 500 MG CAP PO SCH (23:15)
[2022-10-31] MEDS: AMOXICILLIN 500 MG CAP PO SCH ×2 (06:31→17:00)
[2022-10-31 06:33] LABS: Hematocrit (blood only) 37.4 % (42.0-52.0); Mean Corpuscular Hemoglobin 30.8 pg (25.0-34.0); Mean Corpuscular Hgb Conc 34.8 g/dL (32.0-36.0); Mean Corpuscular Volume 88.6 fL (80.0-100.0); Mean Platelet Volume 10.2 fL (9.4-12.4); Platelet Count 173 K/uL (130-400); RDW Coefficient of Variation 12.6 % (11.5-14.5); RDW Standard Deviation 40.7 fL (36.4-46.3); Red Blood Count 4.22 M/uL (4.70-6.10); White Blood Count 11.13 K/ul (4.8-10.8)
[2022-10-31 06:54] LABS: Albumin Globulin Ratio 0.9 (0.9-2); Albumin Level 2.6 gm/dl (3.4-5.0); BUN Creatinine Ratio 10.2 (10-20); Bilirubin,Total 0.6 mg/dl (0.2-1.0); Calcium 8.2 mg/dl (8.6-10.3); Creatinine Clr Calc Pharmacy 79.9 ml/min; Est GFR (African American) 72.5 ml/min; Est GFR (Non-African American) 62.5 ml/min; Globulin 2.9 gm/dl (2.5-4.0); Magnesium 1.9 mg/dl (1.7-2.4); Phosphorus 3.1 mg/dl (2.5-4.9); Potassium 3.8 mmol/L (3.5-5.1); Total Protein 5.5 gm/dl (6.0-8.3)
--- NOTE | 2022-10-31 06:59 | Hospitalist Progress Note ---
Date of Service October 31, 2022 Assessment & Plan (1) Abdominal pain: Plan: 22M with no significant PMH who presented with abdominal pain nausea and vomiting since Wednesday 10/25. Abdominal pain -Labs on admission: WBC 22.42. Hgb 18.2. Na+ 133, BUN 24, Cr 1.53. T. bili 1.5. Entero/Rhino virus also detected on respiratory panel * Procalcitonin elevated (61), ESR/CRP (elevated), GI PCR panel (enterovirus +), KUB (large stool volume, otherwise unremakable) -CTAP: Abnormal mucosal thickening of the stomach consistent with gastritis, abnormal mucosal thickening of colon suspicious of inflammatory colitis. * 6mm appendicolith noted in the proximal appendix but did not correlate with clinical symptoms. Suspect artifact. Gram Positive Bacteremia (Strep Pyogenes - Group A Strep) - Patient SIRS + GAS Bacteremia * ID consulted d/t Gram + Bacteremia (likely a/w Group A Strep, urine cultures negative) * CRP and Procal downtrending * Hydration with LR @ 150 ml/hr, discontinued * Continue IV Tylenol, advance diet as tolerated * Surveillance cultures negative - Discontinued LR, patient tolerating PO food (GF) and hydration - Discontinued Clindamycin --- Patient unable to tolerate AM PO Amoxicillin, given Penicillin G dose in AM via IV, plan to re-trial PO Amoxicillin 1 g PO q8h if good PO intake at lunch --- WBC count increased to 11.3 (from 8), continue to monitor --- Restart LR @ 125 x 2 bags Acute Kidney Injury - Nephrology consulted d/t positive urinalysis, rising creatinine, lack of urination, and non-specific imaging * Urinalysis positive on admission: 3+ protein, 2+ blood, + nitrites, 5-10 WBC, 1+ bacteria * Creatinine rising to 1.86 on 10/28, downtrending to 1.66 today * Normal Creatinine Kinase * Nephrology suspects relation to GAS bacteremia, but recommends further evalu ation, appreciate recommendations - Patient's 24 hour urine showed proteinuria of 1.3 g, while spot urine showed improvement in proteinuria and microscopic hematuria --- Serologies pending, slow improvement of Cr to 1.57 Gastritis/Colitis - Gastritis/Colitis possible a/w enterovirus infection, clinical picture remains inconsistent given patient's elevated ESR/CRP/ProCal * GI consulted d/t ongoing epigastric pain and significant gastritis on CT - suspects that symptoms are related to patients bacteremia * Will continue Protonix 40 mg BID - Patient's epigastric spasms have resolved and appetite is improving, advancing diet as tolerated --- Occasional episodes of emesis ongoing Appendicolith (incidental) - Surgery recommending against management of appendicolith, notes findings more consistent with gastritis/colitis, unlikely appendicitis * GI recommending acid suppression and advancing diet as tolerated Code: Full code Dispo: Med-Surg FEN/GI: Regular, dc Fluids DVT Prophylaxis: Ambulation/SCD (nosebleeds on Lovenox) PT/OT: No Consults: GI, Surgery, Nephrology (2) SIRS (systemic inflammatory response syndrome): (3) Viral gastroenteritis: (4) Gram-positive bacteremia: Admission and Anticipated Discharge Date Admission Date: October 27, 2022 Supervising Physician Co-Signing Physician Notes I personally examined the patient and verified all davis points of history and exam, discussed case, and agree with decision making and plan documented by Dr. Duvall. Unfortunately, patient had vomiting setback earlier today and had to resume IV antibiotics. Encouraged taking p.o. advancing slow, agree with restarting fluids as well. Patient hopeful to be discharged soon, stressed the importance of his ability to tolerate p.o. antibiotics so that he can complete the course of treatment. Parents with patient today and answered their questions. Subjective 10/31: Sam notes ongoing improvement today, he states his nausea is resolved but that he did throw up this morning after attempting to take his medications. He denies any abdominal pain or spasms. He notes he continues to urinate regularly, clear yellow urine and that he continues to have occasional loose bowel movements. He consumed most of his dinner last evening but not had an appetite for breakfast, notes that he normally doesn't eat breakfast. He denies fevers, chills, chest pain, or dyspnea. Review of Systems Review of Systems: As per HPI Physical Exam Physical Exam: General: Comfortable, non-toxic, conversive, alert HEENT: PERRLA. Normal conjunctiva, anicteric sclera. Oropharyngeal erythema (improving) w/o exudate. Hoarse voice (resolved). Respiratory: Normal respiratory effort, CTABL, no wheezing/rhonchi/rales Cardiovascular: RRR without murmurs, gallops, or rubs. No edema. GI: Soft abdomen, normoactive bowel sounds, no TTP, no CVA tenderness, no rebound or guarding Neuro: Alert and oriented x3. Results & Data Results & Data Vital Signs (Past 12 Hours) Vital Signs Temp Pulse Resp BP Pulse Ox O2 Del Method 10/30/22 21:16 37.2 C 84 14 146/91 H 96 Room Air Resident Activity Tracking Resident Involvement: Resident Care Provided Care Provided: Adult Hospital Medicine
[2022-10-31 07:14] LABS: ALC (manual) 1.67 K/uL (1.2-3.4); ANC (manual) 5.79 K/uL (1.4-6.5); Eosinophils # (manual) 0.22 K/uL (0-0.50); Eosinophils % (manual) 2 %; Lymphocytes # (manual) 1.67 K/uL (1.2-3.4); Lymphocytes % (manual) 15 %; Metamyelocytes # (manual) 1.45 K/uL (0-0); Metamyelocytes % (manual) 13 %; Monocytes # (manual) 1.11 K/uL (0.11-0.59); Monocytes % (manual) 10 %; Myelocytes # (manual) 0.89 K/uL (0-0); Myelocytes % (manual) 8 %; Neutrophils # (manual) 5.79 K/uL (1.40-6.50); Neutrophils % (manual) 52 %; Polychromasia 1+; Toxic Granulation 1+
[2022-10-31] MEDS: ONDANSETRON INJ 2 MG/ML 2 ML VIAL IV PRN (07:31)
[2022-10-31] MEDS ORDERED: PENICILLIN G POTASSIUM 4 MU in DEXTROSE 5% 100 ML IV STA (11:29)
[2022-10-31] MEDS: LACTATED RINGER'S 1,000 ML IV SCH ×2 (11:48→21:09)
[2022-10-31] MEDS: PANTOprazole 40 MG in SYRINGE 0 ML IV SCH ×2 (12:43→22:13)
--- NOTE | 2022-10-31 13:04 | Nephrology Progress Note ---
Date of Service October 31, 2022 Assessment & Plan (1) Acute kidney injury: Plan: Creatinine stable at 1.57 mg/dL. Volume status acceptable. Electrolytes normal. Clinical findings are not supportive of RPGN. 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 Definitive diagnosis with biopsy unlikely to casino change attendant at this time. Serologic evaluation results pending. No indication for INFORMATION SYSTEMS PROJECT MANAGER. Medications appropriately dosed for kidney function. Document I/O's and repeat metabolic profile tomorrow AM. (2) Hematuria: Plan: Findings suggestive of GN or cysitis. Repeat Urine studies will be coordinated for follow up evaluation in the next few days. (3) Proteinuria: Plan: 24 hour with 1.3 grams. Follow up suggesting improvement. (4) Bacteremia: Plan: Remains on amoxicillin for strep bacteremia. Admission and Anticipated Discharge Date Admission Date: October 27, 2022 Subjective No acute events overnight. No complaints this AM. Sam denies fevers or chills. No urinary symptoms. Appetite fair but remains slightly reduced. No nausea, vomiting, or diarrhea. No abdominal pain. Denies fluid retention or edema. no arthralgias, synovitis or joint effusions. Review of Systems Review of Systems: All systems reviewed & are unremarkable except as noted in HPI & below Physical Exam Constitutional: well developed; no acute distress Eyes: no scleral abnormality and no corneal abnormality Neck: normal visual inspection and trachea midline Respiratory: normal respiratory effort Auscultation: lungs clear to auscultation bilaterally Cardiovascular: Rate/Rhythm: regular rate Heart Sounds: normal S1 and normal S2 Extremities: no edema Musculoskeletal: Extremities: no cyanosis and no clubbing Skin: normal turgor; no lesions Neurologic: Motor/Sensory: no tremor and no asterixis Psychiatric: Orientation: alert and oriented x 3 Results & Data Vital Signs (Past 12 Hours) Vital Signs Temp Pulse Resp BP Pulse Ox O2 Del Method 10/31/22 07:44 36.9 C 93 H 16 138/83 94 Room Air Laboratory Results Laboratory Results - last 24 hr 10/31/22 10/31/22 05:59 05:59 WBC 11.13 H RBC 4.22 L Hgb 13.0 L Hct 37.4 L MCV 88.6 MCH 30.8 MCHC 34.8 RDW Std Deviation 40.7 RDW Coeff of [place] 12.6 Plt Count 173 MPV 10.2 Neutrophils % (Manual) 52 Lymphocytes % (Manual) 15 Monocytes % (Manual) 10 Eosinophils % (Manual) 2 Metamyelocytes % (Man) 13 Myelocytes % (Man) 8 Neutrophils # (Manual) 5.79 Total Absolute Neuts 5.79 Lymphocytes # (Manual) 1.67 Total Abs Lymphocytes 1.67 Monocytes # (Manual) 1.11 H Eosinophils # (Manual) 0.22 Metamyelocytes # (Man) 1.45 H Myelocytes # (Manual) 0.89 H Toxic Granulation 1+ Polychromasia 1+ Sodium 138 Potassium 3.8 Chloride 107 Carbon Dioxide 21 Anion Gap 10 BUN 16 Creatinine 1.57 H Est Cr Clr Drug Dosing 79.9 Est GFR ( Amer) 72.5 Est GFR (Non-Af Amer) 62.5 BUN/Creatinine Ratio 10.2 Glucose 80 Calcium 8.2 L Phosphorus 3.1 Magnesium 1.9 Total Bilirubin 0.6 AST 25 ALT 24 Alkaline Phosphatase 46 Total Protein 5.5 L Albumin 2.6 L Globulin 2.9 Albumin/Globulin Ratio 0.9 Diagnostic Findings RENAL ULTRASOUND FINDINGS: Right kidney: 11.5 cm. No hydronephrosis. Diffusely echogenic. Left kidney: 12.0 cm. No hydronephrosis. Diffuse echogenic. Bladder: No bladder wall thickening. The bilateral ureteral jets were not identified. Miscellaneous: Small amount of pelvic free fluid. IMPRESSION: 1. Echogenic kidneys. This can be seen in the setting of a glomerulonephritis or pyelonephritis. 2. Small amount of pelvic free fluid. 3. Normal bladder. PG Care Time/CCT Total # of Minutes Spent Total Time Spent with Patient: Total time spent is greater than 50% in coordination of care (as documented) at patient's floor/unit and/or counseling patient: Coding Level of Care Code 02195 SUB INP/OBS CARE 3/50MIN Diagnoses Acute kidney injury N17.9 Hematuria R31.9 Proteinuria R80.9 Bacteremia R78.81
[2022-10-31] MEDS: POTASSIUM CHLORIDE CRTAB 20 MEQ TABCR PO SCH ×2 (14:45→21:09)
[2022-10-31] MEDS: PENICILLIN G POTASSIUM 4 MU in DEXTROSE 5% 100 ML IV SCH ×2 (15:51→19:51)
[2022-10-31] MEDS: MELATONIN 3 MG TAB PO PRN (21:09)
[2022-11-01] MEDS: PENICILLIN G POTASSIUM 4 MU in DEXTROSE 5% 100 ML IV SCH ×3 (00:04→08:36)
[2022-11-01 06:43] LABS: Magnesium 1.8 mg/dl (1.7-2.4); Phosphorus 4.1 mg/dl (2.5-4.9)
[2022-11-01 07:34] LABS: Hematocrit (blood only) 38.2 % (42.0-52.0); Hemoglobin 13.3 g/dl (14.0-18.0); Mean Corpuscular Hemoglobin 31.2 pg (25.0-34.0); Mean Corpuscular Hgb Conc 34.8 g/dL (32.0-36.0); Mean Corpuscular Volume 89.7 fL (80.0-100.0); Platelet Count 195 K/uL (130-400); RDW Coefficient of Variation 13.3 % (11.5-14.5); RDW Standard Deviation 43.8 fL (36.4-46.3); Red Blood Count 4.26 M/uL (4.70-6.10); White Blood Count 11.81 K/ul (4.8-10.8)
[2022-11-01 07:40] LABS: BUN Creatinine Ratio 8.5 (10-20); Calcium 8.3 mg/dl (8.6-10.3); Est GFR (African American) 82.5 ml/min; Est GFR (Non-African American) 71.2 ml/min; Potassium 4.2 mmol/L (3.5-5.1)
[2022-11-01] MEDS ORDERED: AMOXICILLIN 500 MG CAP PO SCH (08:30)
[2022-11-01] MEDS: PANTOprazole 40 MG in SYRINGE 0 ML IV SCH ×2 (08:41→21:09)
[2022-11-01] MEDS: ADVANCED PROBIOTIC 1250 MG CAPSULE PO SCH (09:49)
--- NOTE | 2022-11-01 11:51 | Hospitalist Progress Note ---
Date of Service November 01, 2022 Assessment & Plan (1) Abdominal pain: Plan: 22M with no significant PMH who presented with abdominal pain nausea and vomiting since Wednesday 10/25. Abdominal pain -Labs on admission: WBC 22.42. Hgb 18.2. Na+ 133, BUN 24, Cr 1.53. T. bili 1.5. Entero/Rhino virus also detected on respiratory panel * Procalcitonin elevated (61), ESR/CRP (elevated), GI PCR panel (enterovirus +), KUB (large stool volume, otherwise unremakable) -CTAP: Abnormal mucosal thickening of the stomach consistent with gastritis, abnormal mucosal thickening of colon suspicious of inflammatory colitis. * 6mm appendicolith noted in the proximal appendix but did not correlate with clinical symptoms. Suspect artifact. Gram Positive Bacteremia (Strep Pyogenes - Group A Strep) - Patient SIRS + GAS Bacteremia * ID consulted d/t Gram + Bacteremia (likely a/w Group A Strep, urine cultures negative) * CRP and Procal downtrending * Hydration with LR @ 150 ml/hr, discontinued * Continue IV Tylenol, advance diet as tolerated * Surveillance cultures negative - Discontinued LR, patient tolerating PO food (GF) and hydration - Discontinued Clindamycin --- Transitioned to PO Amoxicillin in AM (discontinued Penicillin G), goal of 24 hours of tolerating PO food and abx prior to dc --- WBC count increased slightly to 11.81 (overall stable) --- IVF complete at 5 AM Acute Kidney Injury - Nephrology consulted d/t positive urinalysis, rising creatinine, lack of urination, and non-specific imaging * Urinalysis positive on admission: 3+ protein, 2+ blood, + nitrites, 5-10 WBC, 1+ bacteria * Creatinine rising to 1.86 on 10/28, downtrending to 1.66 today * Normal Creatinine Kinase * Nephrology suspects relation to GAS bacteremia, but recommends further evaluation, appreciate recommendations - Patient's 24 hour urine showed proteinuria of 1.3 g, while spot urine showed improvement in proteinuria and microscopic hematuria --- Serologies remain pending, slow improvement of Cr to 1.41 --- Repeat serologies as outpatient (per Nephrology recommendation) Gastritis/Colitis - Gastritis/Colitis possible a/w enterovirus infection, clinical picture remains inconsistent given patient's elevated ESR/CRP/ProCal * GI consulted d/t ongoing epigastric pain and significant gastritis on CT - suspects that symptoms are related to patients bacteremia * Will continue Protonix 40 mg BID - Patient's epigastric spasms have resolved and appetite is improving, advancing diet as tolerated --- Emesis resolved Appendicolith (incidental) - Surgery recommending against management of appendicolith, notes findings more consistent with gastritis/colitis, unlikely appendicitis * GI recommending acid suppression and advancing diet as tolerated Code: Full code Dispo: Med-Surg FEN/GI: Regular, dc Fluids DVT Prophylaxis: Ambulation/SCD (nosebleeds on Lovenox) PT/OT: No Consults: GI, Surgery, Nephrology (2) SIRS (systemic inflammatory response syndrome): (3) Viral gastroenteritis: (4) Gram-positive bacteremia: Admission and Anticipated Discharge Date Admission Date: October 27, 2022 Supervising Physician Co-Signing Physician Notes I personally examined the patient and verified all davis points of history and exam, discussed case, and agree with decision making and plan documented by Dr. Duvall. Patient eager for discharge as finals at [employer] are upcoming. Today he was able to tolerate p.o. antibiotics without nausea/vomiting and has been eating gluten-free diet without bowel complaints (reports intolerance). Had a long discussion about the importance of taking antibiotics as scheduled and to completion of 14-day course. Creatinine levels are improving, appreciate nephrology recommendations. Anticipate discharge tomorrow if patient continues to improve clinically and able to maintain p.o. intake and antibiotics. Subjective 11/01: Sam notes that he continues to improve. He ate dinner last night and has not had any nausea or emesis. He notes that he continues to urinate regularly and his loose stools are diminishing to 3 times daily. He denies any chest pain, dyspnea, abdominal pain, headaches, or lightheadedness. His sore throat is improved. Review of Systems Review of Systems: As per HPI Physical Exam Physical Exam: General: Comfortable, non-toxic, conversive, alert HEENT: PERRLA. Normal conjunctiva, anicteric sclera. Oropharyngeal erythema (improving) w/o exudate. Respiratory: Normal respiratory effort, CTABL, no wheezing/rhonchi/rales Cardiovascular: RRR without murmurs, gallops, or rubs. No edema. GI: Soft, non-distended, normoactive bowel sounds, no TTP, no rebound or guarding Neuro: Alert and oriented x3. Results & Data Results & Data Vital Signs (Past 12 Hours) Vital Signs Temp Pulse Resp BP Pulse Ox O2 Del Method 11/01/22 07:47 36.9 C 88 18 150/89 H 95 Room Air Resident Activity Tracking Resident Involvement: Resident Care Provided Care Provided: Adult Hospital Medicine
--- NOTE | 2022-11-01 13:23 | Nephrology Progress Note ---
Date of Service November 01, 2022 Assessment & Plan (1) Acute kidney injury: Plan: Creatinine 1.4 mg/dL. Volume status acceptable. Electrolytes normal. 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 Definitive diagnosis with biopsy unlikely to acid changer at this time. Serologic evaluation results pending. No indication for PEDIATRIC UROLOGIST. Medications appropriately dosed for kidney function. Monitor metabolic profile daily while inpatient. Repeat labs and follow up in the nephrology clinic within 1 week of discharge. Repeat UA/microscopy + PCR requested today. (2) Hematuria: Plan: Findings suggestive of GN or cysitis. Repeat Urine studies today. (3) Proteinuria: Plan: 24 hour with 1.3 grams. Follow up suggesting improvement. (4) Bacteremia: Plan: Remains on amoxicillin for strep bacteremia. Admission and Anticipated Discharge Date Admission Date: October 27, 2022 Subjective No acute events overnight. Sam was seen and evaluated with his parents at the bedside. He feels well. Appetite improving. No vomiting today. Denies notable nausea. No fluid retention or edema. No fevers or chills. Review of Systems Review of Systems: All systems reviewed & are unremarkable except as noted in HPI & below Physical Exam Constitutional: well developed; no acute distress Eyes: no scleral abnormality and no corneal abnormality Neck: normal visual inspection and trachea midline Respiratory: normal respiratory effort Auscultation: lungs clear to auscultation bilaterally Cardiovascular: Rate/Rhythm: regular rate Heart Sounds: normal S1 and normal S2 Extremities: no edema Musculoskeletal: Extremities: no cyanosis and no clubbing Skin: normal turgor; no lesions Neurologic: Motor/Sensory: no tremor and no asterixis Psychiatric: Orientation: alert and oriented x 3 Results & Data Vital Signs (Past 12 Hours) Vital Signs Temp Pulse Resp BP Pulse Ox O2 Del Method 11/01/22 08:41 Room Air 11/01/22 07:47 36.9 C 88 18 150/89 H 95 Room Air Laboratory Results Laboratory Results - last 24 hr 11/01/22 11/01/22 11/01/22 06:03 06:06 06:06 WBC 11.81 H RBC 4.26 L Hgb 13.3 L Hct 38.2 L MCV 89.7 MCH 31.2 MCHC 34.8 RDW Std Deviation 43.8 RDW Coeff of [place] 13.3 Plt Count 195 MPV 10.0 Sodium 137 Potassium 4.2 Chloride 107 Carbon Dioxide 22 Anion Gap 8 BUN 12 Creatinine 1.41 H Est Cr Clr Drug Dosing 89.0 Est GFR ( Amer) 82.5 Est GFR (Non-Af Amer) 71.2 BUN/Creatinine Ratio 8.5 L Glucose 88 Calcium 8.3 L Phosphorus 4.1 D Magnesium 1.8 PG Care Time/CCT Total # of Minutes Spent Total Time Spent with Patient: Total time spent is greater than 50% in coordination of care (as documented) at patient's floor/unit and/or counseling patient: Coding Level of Care Code 48993 SUB INP/OBS CARE 3/50MIN Diagnoses Acute kidney injury N17.9 Hematuria R31.9 Proteinuria R80.9 Bacteremia R78.81
[2022-11-01] MEDS: AMOXICILLIN 500 MG CAP PO SCH ×2 (13:58→21:09)
[2022-11-01 16:05] LABS: Appearance Urine Clear (Clear); Bilirubin Urine Negative (Negative); Blood Urine Negative (Negative); Color Urine Yellow; Glucose Urine UA Negative (Negative); Ketones Urine Negative (Negative); Leukocyte Esterase Urine Negative (Negative); Nitrite Urine Negative (Negative); Protein Urine Negative (Negative); Specific Gravity Urine 1.009 (1.000-1.030); Urobilinogen Urine Negative (Negative); pH Urine 7.5 (4.5-7.5)
[2022-11-01 16:25] LABS: Total Protein Urine Random 13.4 mg/dl (0-11.9)
[2022-11-01 16:31] LABS: Creatinine Urine Random 55.2 mg/dl; Protein Creatinine Ratio Urine 0.2 (0-0.2)
[2022-11-02] MEDS: AMOXICILLIN 500 MG CAP PO SCH (05:48)
[2022-11-02 07:01] LABS: Hematocrit (blood only) 41.6 % (42.0-52.0); Hemoglobin 14.2 g/dl (14.0-18.0); Mean Corpuscular Hemoglobin 31.4 pg (25.0-34.0); Mean Corpuscular Hgb Conc 34.1 g/dL (32.0-36.0); Mean Platelet Volume 9.8 fL (9.4-12.4); Platelet Count 216 K/uL (130-400); RDW Coefficient of Variation 13.2 % (11.5-14.5); RDW Standard Deviation 44.3 fL (36.4-46.3); Red Blood Count 4.52 M/uL (4.70-6.10); White Blood Count 10.78 K/ul (4.8-10.8)
--- NOTE | 2022-11-02 07:03 | Discharge Summary ---
Date of Service November 02, 2022 Admission HPI Per Admitting Provider Sam is a 22-year-old male with no past medical history who presents with nausea, vomiting, and lower abdominal pain x2 days. He reports being in his usual state of health beforehand. Abdominal pain worse with movement, hiccups. Denies fever, chills, headache, SOB, chest pain, or diarrhea. Sister endorses hematemesis initially but bilious since. In the ED, vitals were normal. Patient was afebrile. Laboratory work-up was notable for a WBC of 22.4, hemoglobin of 18.2, sodium of 133, BUN of 24, creatinine of 1.53, and entero-/rhinovirus detected on respiratory PCR panel. CT A/P revealed a 6 mm appendicolith in the proximal appendix, thought to be artifact, normal variation, abnormal mucosal thickening of the stomach consistent with gastritis, abnormal mucosal thickening of the colon consistent with inflammatory infectious colitis. No evidence of intraperitoneal fluid or free air in the peritoneum. On admission, sister is also at bedside. They both corroborate HPI, the sister does add that he was on medication for acid reflux few months ago. He continues to endorse lower abdominal pain worsened with inspiration. Admission Exam Per Admitting Provider General: No acute distress. HEENT: PERRLA. Normal conjunctiva, anicteric sclera. Oropharynx normal. Respiratory: Normal respiratory effort, CTABL. Cardiovascular: RRR without murmurs, gallops, or rubs. No edema. GI: Soft abdomen with normal bowel sounds heard on auscultation. Diffuse TTP, greatest in LLQ. Neuro: Alert and oriented x3. Principal Diagnosis Strep A Bacteremia Discharge Exam General: Comfortable, non-toxic, conversive, alert HEENT: PERRLA. Normal conjunctiva, anicteric sclera. Oropharyngeal erythema (improving) w/o exudate. Respiratory: Normal respiratory effort, CTABL, no wheezing/rhonchi/rales Cardiovascular: RRR without murmurs, gallops, or rubs. No edema. GI: Soft, non-distended, normoactive bowel sounds, no TTP, no rebound or guarding Neuro: Alert and oriented x3. Discharge Data Allergies Allergy/AdvReac Type Severity Reaction Status Date / Time pollen extracts Allergy Intermediate sneezy,whee Verified 10/26/22 23:02 zy Consultations 10/27/22 01:50 ED Decision to Admit Stat 10/27/22 03:49 Consult Gastroenterology Routine 10/28/22 11:06 Consult Nephrology Routine 10/28/22 12:51 Consult Infectious Diseases Routine Ordered Studies 10/26/22 22:57 CT Abd and Pelvis [CT abd pelvis IV con only] Stat 10/28/22 09:38 US Kidney Bladder [US renal/blad retro comp] Urgent Laboratory Results WBC 10.78 K/ul (4.8-10.8) 11/02/22 06:26 RBC 4.52 M/uL (4.70-6.10) L 11/02/22 06:26 Hgb 14.2 g/dl (14.0-18.0) 11/02/22 06:26 Hct 41.6 % (42.0-52.0) L 11/02/22 06:26 MCV 92.0 fL (80.0-100.0) 11/02/22 06:26 MCH 31.4 pg (25.0-34.0) 11/02/22 06:26 MCHC 34.1 g/dL (32.0-36.0) 11/02/22 06:26 RDW Std Deviation 44.3 fL (36.4-46.3) 11/02/22 06:26 RDW Coeff of [place] 13.2 % (11.5-14.5) 11/02/22 06:26 Plt Count 216 K/uL (130-400) 11/02/22 06:26 MPV 9.8 fL (9.4-12.4) 11/02/22 06:26 Immature Gran % (Auto) 4.1 % 10/29/22 07:18 Neut % (Auto) 77.2 % 10/29/22 07:18 Lymph % (Auto) 7.3 % 10/29/22 07:18 [place] % (Auto) 9.9 % 10/29/22 07:18 Eos % (Auto) 1.1 % 10/29/22 07:18 Baso % (Auto) 0.4 % 10/29/22 07:18 Neut # (Auto) 8.98 K/uL (1.40-6.50) H 10/29/22 07:18 Lymph # (Auto) 0.85 K/uL (1.2-3.4) L 10/29/22 07:18 [place] # (Auto) 1.15 K/uL (0.11-0.59) H 10/29/22 07:18 Eos # (Auto) 0.13 K/uL (0-0.50) 10/29/22 07:18 Baso # (Auto) 0.05 K/uL (0-0.2) 10/29/22 07:18 Immature Gran # (Auto) 0.48 K/uL (0.01-0.20) H 10/29/22 07:18 Neutrophils % (Manual) 52 % 10/31/22 05:59 Lymphocytes % (Manual) 15 % 10/31/22 05:59 Monocytes % (Manual) 10 % 10/31/22 05:59 Eosinophils % (Manual) 2 % 10/31/22 05:59 Metamyelocytes % (Man) 13 % 10/31/22 05:59 Myelocytes % (Man) 8 % 10/31/22 05:59 Promyelocytes % (Man) 1 % 10/30/22 06:34 Blast Cells % (Manual) 1 % 10/30/22 06:34 Neutrophils # (Manual) 5.79 K/uL (1.40-6.50) 10/31/22 05:59 Total Absolute Neuts 5.79 K/uL (1.4-6.5) 10/31/22 05:59 Lymphocytes # (Manual) 1.67 K/uL (1.2-3.4) 10/31/22 05:59 Total Abs Lymphocytes 1.67 K/uL (1.2-3.4) 10/31/22 05:59 Monocytes # (Manual) 1.11 K/uL (0.11-0.59) H 10/31/22 05:59 Eosinophils # (Manual) 0.22 K/uL (0-0.50) 10/31/22 05:59 Metamyelocytes # (Man) 1.45 K/uL (0-0) H 10/31/22 05:59 Myelocytes # (Manual) 0.89 K/uL (0-0) H 10/31/22 05:59 Promyelocytes # (Man) 0.08 K/uL (0-0) H 10/30/22 06:34 Blast Cells # (Man) 0.08 K/uL (0-0) H 10/30/22 06:34 Blood Smear Review 10/30/22 06:34 Toxic Granulation 1+ 10/31/22 05:59 Toxic Vacuolation 1+ 10/28/22 08:51 Dohle Bodies 1+ 10/28/22 08:51 Polychromasia 1+ 10/31/22 05:59 ESR 69 mm/hr (0-15) H 10/28/22 08:51 Sodium 138 mmol/L (136-145) 11/02/22 06:26 Potassium 3.8 mmol/L (3.5-5.1) 11/02/22 06:26 Chloride 105 mmol/L (98-107) 11/02/22 06:26 Carbon Dioxide 26 mmol/L (21-32) 11/02/22 06:26 Anion Gap 7 (3-11) 11/02/22 06:26 BUN 10 mg/dl (6-23) 11/02/22 06:26 Creatinine 1.48 mg/dl (0.6-1.4) H 11/02/22 06:26 Est Cr Clr Drug Dosing 84.8 ml/min 11/02/22 06:26 Est GFR ( Amer) 77.8 ml/min 11/02/22 06:26 Est GFR (Non-Af Amer) 67.2 ml/min 11/02/22 06:26 BUN/Creatinine Ratio 6.8 (10-20) L 11/02/22 06:26 Glucose 89 mg/dl (70-99(Fasting)) 11/02/22 06:26 POC Glucose 80 mg/dl (70-99) 10/30/22 12:02 Calcium 8.6 mg/dl (8.6-10.3) 11/02/22 06:26 Phosphorus 4.1 mg/dl (2.5-4.9) D 11/01/22 06:03 Magnesium 1.8 mg/dl (1.7-2.4) 11/01/22 06:03 Total Bilirubin 0.6 mg/dl (0.2-1.0) 10/31/22 05:59 AST 25 U/L (13-39) 10/31/22 05:59 ALT 24 U/L (7-52) 10/31/22 05:59 Alkaline Phosphatase 46 U/L (34-104) 10/31/22 05:59 Total Creatine Kinase 148 U/L (30-223) 10/28/22 15:37 C-Reactive Protein 15.64 mg/dl (0-0.5) H 10/29/22 07:18 Total Protein 5.5 gm/dl (6.0-8.3) L 10/31/22 05:59 Total Protein (PEP) 4.8 g/dL (6.1-8.1) L 10/29/22 07:18 Albumin 2.6 gm/dl (3.4-5.0) L 10/31/22 05:59 Albumin (PEP) 2.1 g/dL (3.8-4.8) L 10/29/22 07:18 Globulin 2.9 gm/dl (2.5-4.0) 10/31/22 05:59 Albumin/Globulin Ratio 0.9 (0.9-2) 10/31/22 05:59 Upssz-8-Oopqyakte 0.6 g/dL (0.2-0.3) H 10/29/22 07:18 Zowhj-2-Aebpctlwf 0.9 g/dL (0.5-0.9) 10/29/22 07:18 Bjzu-8-Iceutpat 0.3 g/dL (0.4-0.6) L 10/29/22 07:18 Bxqd-7-Oqeglrea 0.3 g/dL (0.2-0.5) 10/29/22 07:18 Gamma Globulins 0.6 g/dL (0.8-1.7) L 10/29/22 07:18 Monoclonal Peak 3 DNR g/dL (NONE DETECTED) 10/29/22 07:18 Ser Monoclonl Protein DNR g/dL (NONE DETECTED) 10/29/22 07:18 Ser Monoclonal Prot 2 DNR g/dL (NONE DETECTED) 10/29/22 07:18 PEP Interpretation SEE NOTE 10/29/22 07:18 Lipase 11 U/L (11-82) 10/26/22 21:35 Procalcitonin 25.45 ng/ml (0-0.5) H 10/29/22 07:18 Urine Color Yellow 11/01/22 15:45 Urine Appearance Clear (Clear) 11/01/22 15:45 Urine pH 7.5 (4.5-7.5) 11/01/22 15:45 Ur Specific [place] 1.009 (1.000-1.030) 11/01/22 15:45 Urine Protein Negative (Negative) 11/01/22 15:45 Urine Glucose (UA) Negative (Negative) 11/01/22 15:45 Urine Ketones Negative (Negative) 11/01/22 15:45 Urine Blood Negative (Negative) 11/01/22 15:45 Urine Nitrite Negative (Negative) 11/01/22 15:45 Urine Bilirubin Negative (Negative) 11/01/22 15:45 Urine Urobilinogen Negative (Negative) 11/01/22 15:45 Ur Leukocyte Esterase Negative (Negative) 11/01/22 15:45 Urine WBC (Auto) 1-5 /hpf (0-5) 10/28/22 16:46 Urine RBC (Auto) 0-4 /hpf (0-4) 10/28/22 16:46 U Hyaline Cast (Auto) 1-5 /lpf (0-5) 10/28/22 16:46 U Epithel Cells (Auto) 10-20 /lpf (0-5) H 10/28/22 16:46 Urine Bacteria (Auto) Negative (Negative) 10/28/22 16:46 Ur Random Creatinine 55.2 mg/dl 11/01/22 15:45 U Random Total Protein 13.4 mg/dl (0-11.9) H 11/01/22 15:45 Urine Total Volume 710 mL 10/28/22 16:46 Ur Creatinine mg/dL 176 mg/dL (20-320) 10/28/22 16:45 Ur Total Protein 24 Hr 1324.2 mg/24 Hr (0-149.1) H 10/28/22 16:46 Protein/Creatinin Ratio 0.2 (0-0.2) 11/01/22 15:45 Urine Total Protein 186.5 mg/dl 10/28/22 16:46 Urine Albumin (%) 15 % 10/28/22 16:45 U Wknbx-7-Igzkrfcs (%) 6 % 10/28/22 16:45 U Nrlnd-5-Cxgmynrw (%) 31 % 10/28/22 16:45 U Beta Globulin (%) 30 % 10/28/22 16:45 U Gamma Globulin (%) 19 % 10/28/22 16:45 U Abnormal Prot Band 1 11 mg/dL (NONE DETECTED) H 10/28/22 16:45 U Abnormal Prot Band 2 DNR mg/dL (NONE DETECTED) 10/28/22 16:45 U Abnormal Prot Band 3 DNR mg/dL (NONE DETECTED) 10/28/22 16:45 Urine PEP Interpret SEE NOTE 10/28/22 16:45 Stl C. cayetanensis PCR Not Detected (NotDetected) 10/27/22 Unknown Stool Rotavirus A PCR Not Detected (NotDetected) 10/27/22 Unknown Stl Adenov F 40/41 PCR Not Detected (NotDetected) 10/27/22 Unknown Stool Astrovirus (PCR) Not Detected (NotDetected) 10/27/22 Unknown Stool Campylobacter PCR Not Detected (NotDetected) 10/27/22 Unknown Stool Cryptosporidium PCR Not Detected (NotDetected) 10/27/22 Unknown Stl E.coli Shiga Tox PCR Not Detected (NotDetected) 10/27/22 Unknown Stl Enterotoxigenic E PCR Not Detected (NotDetected) 10/27/22 Unknown Stool EPEC (PCR) Not Detected (NotDetected) 10/27/22 Unknown Stool EAEC (PCR) Not Detected (NotDetected) 10/27/22 Unknown Stl E. histolytica PCR Not Detected (NotDetected) 10/27/22 Unknown Stool Giardia Lamblia PCR Not Detected (NotDetected) 10/27/22 Unknown Stool Salmonella PCR Not Detected (NotDetected) 10/27/22 Unknown Stool Sapovirus (PCR) Not Detected (NotDetected) 10/27/22 Unknown Stl P. shigelloides PCR Not Detected (NotDetected) 10/27/22 Unknown Stl Shigella/EIEC PCR Not Detected (NotDetected) 10/27/[address].enterocolitica PCR Not Detected (NotDetected) 10/27/22 Unknown Stool Vibrio (PCR) Not Detected (NotDetected) 10/27/22 Unknown Stl Vibrio cholerae PCR Not Detected (NotDetected) 10/27/22 Unknown Stl Norovirus GI/GII PCR Not Detected (NotDetected) 10/27/22 Unknown Adenovirus (PCR) Not Detected (NotDetected) 10/26/22 23:13 B. pertussis DNA (PCR) Not Detected (NotDetected) 10/26/22 23:13 B.parapertussis DNA PCR Not Detected (NotDetected) 10/26/22 23:13 C. pneumoniae DNA (PCR) Not Detected (NotDetected) 10/26/22 23:13 Coronavirus OC43 (PCR) Not Detected (NotDetected) 10/26/22 23:13 Coronavirus HKU1 (PCR) Not Detected (NotDetected) 10/26/22 23:13 Coronavirus 229E (PCR) Not Detected (NotDetected) 10/26/22 23:13 SARS-CoV-2 (PCR) Not Detected (NotDetected) 10/26/22 23:13 Coronavirus NL63 (PCR) Not Detected (NotDetected) 10/26/22 23:13 Human Metapneumovir PCR Not Detected (NotDetected) 10/26/22 23:13 Influenza Type A (PCR) Not Detected (NotDetected) 10/26/22 23:13 Influenza Type B (PCR) Not Detected (NotDetected) 10/26/22 23:13 M. pneumoniae (PCR) Not Detected (NotDetected) 10/26/22 23:13 Parainfluenza 1 (PCR) Not Detected (NotDetected) 10/26/22 23:13 Parainfluenza 2 (PCR) Not Detected (NotDetected) 10/26/22 23:13 Parainfluenza 3 (PCR) Not Detected (NotDetected) 10/26/22 23:13 Parainfluenza 4 (PCR) Not Detected (NotDetected) 10/26/22 23:13 RSV (PCR) Not Detected (NotDetected) 10/26/22 23:13 Entero/Rhino (PCR) DETECTED (NotDetected) A* 10/26/22 23:13 Streptococcus sp PCR DETECTED (NotDetected) A 10/27/22 18:04 Group A Strep (PCR) DETECTED (NotDetected) A 10/27/22 Unknown S. pyogenes (PCR) DETECTED (NotDetected) A 10/27/22 18:04 Bld Cult ID Panel PCR See PCR Comment (NotDetected) 10/27/22 18:04 Impressions Abdomen/Pelvis CT 10/26/22 22:57 Exam(s): CT ABDOMEN + PELVIS With Contrast IV Amt: 86 ML OPTIRAY 350 EXAM: CT Abdomen and Pelvis With Intravenous Contrast CLINICAL HISTORY: rlq pain. TECHNIQUE: Axial computed tomography images of the abdomen and pelvis with intravenous contrast. CTDI is 7.04 mGy and DLP is 373.95 mGy-cm. Automated exposure control was utilized for the study. A dose lowering technique was utilized adhering to the principles of ALARA. CONTRAST: Patient received 86 ML OPTIRAY 350 of IV contrast COMPARISON: No relevant prior studies available. FINDINGS: Lung bases: Unremarkable. No mass. No consolidation. ABDOMEN: Liver: Hepatic steatosis. Gallbladder and bile ducts: Unremarkable. No calcified stones. No ductal dilation. Pancreas: Unremarkable. No mass. No ductal dilation. Spleen: Unremarkable. No splenomegaly. Adrenals: Unremarkable. No mass. Kidneys and ureters: Unremarkable. No solid mass. No hydronephrosis. Stomach and bowel: There is abnormal mucosal thickening of the stomach, despite partial decompression. No evidence for gastric obstruction. In addition, there is abnormal mucosal thickening of the colon which is predominantly decompressed. No evidence for bowel obstruction. PELVIS: Appendix: 6 mm appendicolith noted in the proximal appendix the appendix distal to the appendicolith is within normal limits measuring up to 6 mm. No obvious periappendiceal fat stranding, accounting for respiratory artifact in this region. Bladder: Unremarkable. No mass. Reproductive: Unremarkable as visualized. ABDOMEN and PELVIS: Intraperitoneal space: Unremarkable. No free air. No significant fluid collection. Bones/joints: No acute fracture. No dislocation. Soft tissues: Unremarkable. Vasculature: Unremarkable. No abdominal aortic aneurysm. Lymph nodes: Unremarkable. No enlarged lymph nodes. IMPRESSION: 1. 6 mm appendicolith noted in the proximal appendix the appendix distal to the appendicolith is within normal limits measuring up to 6 mm. No obvious periappendiceal fat stranding, accounting for respiratory artifact in this region. Suspect normal variation. Please correlate with clinical symptoms. 2. There is abnormal mucosal thickening of the stomach, despite partial decompression. No evidence for gastric obstruction. Findings are most consistent with gastritis. 3. In addition, there is abnormal mucosal thickening of the colon which is predominantly decompressed. No evidence for bowel obstruction. Coexisting inflammatory infectious colitis are suspected. No free intraperitoneal fluid or pneumoperitoneum. Electronically signed by: Allen Russo MD 10/27/22 01:01 AM KUB X-Ray 10/27/22 03:49 KUB HISTORY: Acute generalized abdominal pain with nausea and vomiting abdominal pain COMPARISON: CT abdomen and pelvis 10/26/2022 FINDINGS: Nonobstructive bowel gas pattern. Contrast noted within the urinary bladder with contrast opacified renal parenchyma.. No renal calculi. No ureteral calculi. No pneumoperitoneum or pneumatosis. No fracture. IMPRESSION: 1. Nonobstructive bowel gas pattern. 2. There is contrast within the urinary bladder and kidneys secondary to the contrast enhanced exam obtained 9 hours earlier. Correlate with laboratory analysis to exclude decreased renal function. ACT 112: Negative or not required by law. The above report was generated using voice recognition software. It may contain grammatical, syntax or spelling errors. Electronically signed by: Sandoval Sin M.D. 10/27/2022 8:48 AM Renal Ultrasound 10/28/22 09:38 RENAL ULTRASOUND HISTORY: abd pain/urine retention/flank pain COMPARISON: Abdomen and pelvis CT 10/26/2022. FINDINGS: Right kidney: 11.5 cm. No hydronephrosis. Diffusely echogenic. Left kidney: 12.0 cm. No hydronephrosis. Diffuse echogenic. Bladder: No bladder wall thickening. The bilateral ureteral jets were not identified. Miscellaneous: Small amount of pelvic free fluid. IMPRESSION: 1. Echogenic kidneys. This can be seen in the setting of a glomerulonephritis or pyelonephritis. 2. Small amount of pelvic free fluid. 3. Normal bladder. ACT 112: Negative or not required by law. Electronically signed by: Leonidas Powell M.D. 10/28/2022 11:34 AM Hospital Course (1) Abdominal pain: 22M with no significant PMH who presented with abdominal pain nausea and vomiting since Wednesday 10/25. Abdominal pain -Labs on admission: WBC 22.42. Hgb 18.2. Na+ 133, BUN 24, Cr 1.53. T. bili 1.5. Entero/Rhino virus also detected on respiratory panel * Procalcitonin elevated (61), ESR/CRP (elevated), GI PCR panel (enterovirus +), KUB (large stool volume, otherwise unremakable) -CTAP: Abnormal mucosal thickening of the stomach consistent with gastritis, abnormal mucosal thickening of colon suspicious of inflammatory colitis. * 6mm appendicolith noted in the proximal appendix but did not correlate with clinical symptoms. Suspect artifact. Gram Positive Bacteremia (Strep Pyogenes - Group A Strep) - Patient SIRS + GAS Bacteremia * ID consulted d/t Gram + Bacteremia (likely a/w Group A Strep, urine cultures negative) * CRP and Procal downtrending * Hydration with LR @ 150 ml/hr, discontinued * Continue IV Tylenol, advance diet as tolerated * Surveillance cultures negative - Discontinued LR, patient tolerating PO food (GF) and hydration - Discontinued Clindamycin --- Leukocytosis resolved --- Continue PO Amoxicillin for complete 14 day course --- Follow up outpatient in 1 week Acute Kidney Injury - Nephrology consulted d/t positive urinalysis, rising creatinine, lack of urination, and non-specific imaging * Urinalysis positive on admission: 3+ protein, 2+ blood, + nitrites, 5-10 WBC, 1+ bacteria * Creatinine rising to 1.86 on 10/28, downtrending to 1.66 today * Normal Creatinine Kinase * Nephrology suspects relation to GAS bacteremia, but recommends further evaluation, appreciate recommendations - Patient's 24 hour urine showed proteinuria of 1.3 g, while spot urine showed improvement in proteinuria and microscopic hematuria --- Creatinine remains elevated at 1.48 --- Repeat serologies as outpatient (per Nephrology recommendation) --- Follow up with Nephrology in 2 weeks Gastritis/Colitis - Gastritis/Colitis possible a/w enterovirus infection, clinical picture remains inconsistent given patient's elevated ESR/CRP/ProCal * GI consulted d/t ongoing epigastric pain and significant gastritis on CT - suspects that symptoms are related to patients bacteremia * Will continue Protonix 40 mg BID - Patient's epigastric spasms have resolved and appetite is improving, advancing diet as tolerated --- Emesis resolved Appendicolith (incidental) - Surgery recommending against management of appendicolith, notes findings more consistent with gastritis/colitis, unlikely appendicitis * GI recommending acid suppression and advancing diet as tolerated Code: Full code Dispo: Home FEN/GI: Regular, dc Fluids DVT Prophylaxis: Ambulation/SCD (nosebleeds on Lovenox) PT/OT: No Consults: GI, Surgery, Nephrology (2) SIRS (systemic inflammatory response syndrome): (3) Viral gastroenteritis: (4) Gram-positive bacteremia: Total Time Total Time Spent Total Time Spent (In Minutes): <30 minutes Discharge Plan Discharge Items Patient Disposition: Home - Self-Care Reason For Visit: ABDOMINAL PAIN Discharge Diagnosis: Strep Pyogenes Bacteremia Condition on Discharge: Good Activity: Per Instructions section Non-emergency contact: Primary Care Provider Call non-emergency contact if: you have any medication questions, your symptoms worsen and your rectal temperature is above 100.4 Follow-up/Referrals: [facility] [Primary Care Provider] - Valentina Duvall DO [Resident] - 11/10/22 10:00 am Diet: Regular and Gluten Free Addtl Attending Provider Instructions: You were admitted to the hospital for management of Strep. Pyogenes (the bacteria that causes strep throat) bacteremia. Which ultimately means you had an infection in your blood. We gave you antibiotics and fluids to treat your infection, over the last 5 days your symptoms gradually improved. We followed your blood cultures to the point of clearance, on 10/28 there was no longer any bacteria in your blood. Our next goal was for you to tolerate oral medications and food intake. Your nausea/stomach pain ultimately resolved to the point where you were able to tolerate food and medications by mouth for 24 hours. This was reassuring that you are ready to continue recovering at home. When you return home, it is important to continue taking your antibiotic every 8 hours as prescribed. Please take your antibiotic with food, as this will help prevent you from experiencing nausea/emesis. It is important that you continue to hydrate with at least 64 ounces of water daily and avoid any alcohol consumption. During your admission you were also found to have elevations in your kidney function numbers (creatinine level) as well as a decreased amount of urination. A likely contributing factor was dehydration from your infection. which would lead to a condition called Acute Tubular Necrosis, which will ultimately resolve over time with appropriate rehydration. Because of your Strep infection as well as protein/blood in your original urine sample, additional serologic labs were ordered to evaluate the health of your kidneys. You will be scheduled for a follow up appointment with Nephrology (Dr. Dubose) in 2-3 weeks. A discharge summary will be sent to your primary care physician to ensure continuity of care. Please bring this discharge summary with you to your next office appointment so that your provider can review it at that time. Follow-up appointments: - You have a follow up appointment with Dr. Valentina Duvall 11/10/22 at 10:00 AM (please arrive 15-20 minutes early to complete paperwork) - Follow up appointment with Nephrology will be scheduled. Medications: - Amoxicillin, 1000 mg by mouth every 8 hours for 9 more days (total of 14 days) Contact your Primary Care Provider if you experience: - Difficulty following your treatment plan or taking medications - Fevers - Lethargy/fatigue Call 911 or go to the emergency department if you experience: - Sudden, severe abdominal pain or nausea/vomiting - Severe chest pain, or chest pain that radiates (moves) to your jaw or arm - Sudden, severe shortness of breath or difficulty breathing It was a pleasure to be a part of your care, Dr. Valentina Duvall Pending Studies at Discharge: No Stand-Alone Forms: My [facility], Smoking Cessation Medications and DC Order Prescriptions: New amoxicillin 500 mg Capsule 1,000 mg PO Q8 9 Days Qty: 54 0RF Continued methylphenidate HCl [Concerta] 54 mg Tablet Extended Release 24hr 54 mg PO QAM omeprazole magnesium 20 mg Tablet,Delayed Release (Dr/Ec) 20 mg PO QAM Discharge Orders: Discharge Order (Routine); Ordered 11/02/22 Ordered By: Valentina Duvall Admission Data Admit Date/Time: 10/27/22 02:48 Attending Provider: Santana Shahid Admit Provider: Ramesh Arauz Primary Care Provider: [facility] Other Providers: Sheree Dove ; Emily Saxena ; Aleks Arauz ; Alyce Lester ; Meaghan Hernandez ; Clarice Barrett ; Suzan English ; Vignesh Simpson ; Carson Riojas ; Laurent Mei ; Delisa Mckinney ; Chandler Holland ; Clarisa Rogers ; Shereen Adan ; Monet Cerna ; Fina Gilmore ; Pawan Aguero ; Marcellus Bucio ; Tomer Fox ; Tricia Conley ; Isabel Tapia Jr ; Reina Moreno ; Rowan Lubin ; Adam Wharton ; Sharee Bosch ; Yissel Dash ; Aubree Lyons ; Lisbeth Parsons ; Sole Davila ; Barber Krause ; Summer Chiu Other Interventions: Discharge Summary Assessment (RN) Last Done: 11/02/22 12:44 Supervising Physician Co-Signing Physician Notes I personally examined the patient and verified all davis points of history and exam, discussed case, and agree with decision making with Dr Duvall. Feeling okay, feeling up to going home. Tolerating p.o. antibiotics well. Family present, answered all questions to the best my ability and to their satisfaction. Cultures, CT scan, CBC, BMP noted. Vitals noted, in general he is awake and alert pleasant no distress. HEENT normocephalic atraumatic mucous membranes moist. Breathing unlabored no accessory muscle use good effort. Skin shows no rashes no pallor or icterus. Neuro without focal deficits. Strep pharyngitis/sepsis/bacteremiafortunately doing well, infectious disease input greatly appreciated. Good candidate for oral antibiotic to complete therapy. Tolerating well. Emphasized the critical importance of taking his ant ibiotics for the full course and not missing doses, and outlined strategies to help make this happen. KOBI most likely ATN versus other, not normalized but improved enough to be safe for homenephrology follow-up as well as PCP. Safe/stable for home. Resident Activity Tracking Resident Involvement: Resident Care Provided Care Provided: Adult Hospital Medicine
[2022-11-02 07:18] LABS: BUN Creatinine Ratio 6.8 (10-20); Calcium 8.6 mg/dl (8.6-10.3); Creatinine Clr Calc Pharmacy 84.8 ml/min; Est GFR (African American) 77.8 ml/min; Est GFR (Non-African American) 67.2 ml/min; Potassium 3.8 mmol/L (3.5-5.1)
[2022-11-02] MEDS: ADVANCED PROBIOTIC 1250 MG CAPSULE PO SCH (08:26)
[2022-11-02] MEDS: PANTOprazole 40 MG in SYRINGE 0 ML IV SCH (08:26)
[2022-11-02 09:02] LABS: Albumin 2.1 g/dL (3.8-4.8); Alpha 1 Globulin 0.6 g/dL (0.2-0.3); Alpha 2 Globulin 0.9 g/dL (0.5-0.9); Beta-1-Globulin 0.3 g/dL (0.4-0.6); Beta-2-Globulin 0.3 g/dL (0.2-0.5); Gamma Globulin 0.6 g/dL (0.8-1.7); Monoclonal Protein Band 1 DNR g/dL (NONE DETECTED); Monoclonal Protein Band 2 DNR g/dL (NONE DETECTED); Monoclonal Protein Band 3 DNR g/dL (NONE DETECTED); Total Protein 4.8 g/dL (6.1-8.1)
[2022-11-02 11:33] LABS: Creatinine Ur 176 mg/dL (20-320); Protein, Urine Random 260 mg/dL (5-25); Ur Protein/Creat Ratio mg/g 1477 mg/g creat (25-148); Urine Abnormal Protein Band 1 11 mg/dL (NONE DETECTED); Urine Abnormal Protein Band 2 DNR mg/dL (NONE DETECTED); Urine Abnormal Protein Band 3 DNR mg/dL (NONE DETECTED); Urine Protein/Creatinine Ratio 1.477 (0.025-0.148)
--- NOTE | 2022-11-02 12:28 | Nephrology Progress Note ---
Date of Service November 02, 2022 Assessment & Plan (1) Acute kidney injury: Plan: Creatinine stable at 1.4 mg/dL. Volume status acceptable. Electrolytes normal. UA bland and acellular. No protein on random assessment. 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 Definitive diagnosis with biopsy unlikely to globe changer at this time. Serologic evaluation results pending. Repeat blood work and urine studies and follow up in the nephrology clinic within 2 weeks of discharge. Plan of care reviewed with Dr. Duvall this AM. (2) Hematuria: Plan: REsolved on repeat testing. (3) Proteinuria: Plan: Follow up suggesting resolution. Follow up in the nephrology clinic to review serologic evaluation pending and assess for any signs to suggest underlying IgA. Admission and Anticipated Discharge Date Admission Date: October 27, 2022 Subjective No acute events overnight. Sam was seen and evaluated with his parents at the bedside. He feels well. Appetite improving. No vomiting today. Denies notable nausea. No fluid retention or edema. No fevers or chills. Review of Systems Review of Systems: All systems reviewed & are unremarkable except as noted in HPI & below Physical Exam Constitutional: well developed; no acute distress Eyes: no scleral abnormality and no corneal abnormality Neck: normal visual inspection and trachea midline Respiratory: normal respiratory effort Auscultation: lungs clear to auscultation bilaterally Cardiovascular: Rate/Rhythm: regular rate Heart Sounds: normal S1 and normal S2 Extremities: no edema Musculoskeletal: Extremities: no cyanosis and no clubbing Skin: normal turgor; no lesions Neurologic: Motor/Sensory: no tremor and no asterixis Psychiatric: Orientation: alert and oriented x 3 Results & Data Vital Signs (Past 12 Hours) Vital Signs Temp Pulse Resp BP Pulse Ox O2 Del Method 11/02/22 07:20 36.8 C 72 16 129/77 97 Room Air Laboratory Results Laboratory Results - last 24 hr 10/28/22 10/29/22 11/01/22 16:45 07:18 15:45 WBC RBC Hgb Hct MCV MCH MCHC RDW Std Deviation RDW Coeff of [place] Plt Count MPV Sodium Potassium Chloride Carbon Dioxide Anion Gap BUN Creatinine Est Cr Clr Drug Dosing Est GFR ( Amer) Est GFR (Non-Af Amer) BUN/Creatinine Ratio Glucose Calcium Total Protein (PEP) 4.8 L Albumin (PEP) 2.1 L Vyufa-8-Xqaduidvt 0.6 H Halzl-8-Qououxjvq 0.9 Avpu-7-Zpfrazku 0.3 L Oulp-1-Cpebzfdb 0.3 Gamma Globulins 0.6 L Monoclonal Peak 3 DNR Ser Monoclonl Protein DNR Ser Monoclonal Prot 2 DNR PEP Interpretation SEE NOTE Urine Color Yellow Urine Appearance Clear Urine pH 7.5 Ur Specific [place] 1.009 Urine Protein Negative Urine Glucose (UA) Negative Urine Ketones Negative Urine Blood Negative Urine Nitrite Negative Urine Bilirubin Negative Urine Urobilinogen Negative Ur Leukocyte Esterase Negative Ur Random Creatinine U Random Total Protein 260 H Ur Creatinine mg/dL 176 Protein/Creatinin Ratio 1.477 H Urine Albumin (%) 15 U Vsghx-0-Moluijuj (%) 6 U Ubgoz-5-Obmlaqyw (%) 31 U Beta Globulin (%) 30 U Gamma Globulin (%) 19 U Abnormal Prot Band 1 11 H U Abnormal Prot Band 2 DNR U Abnormal Prot Band 3 DNR Urine PEP Interpret SEE NOTE 11/01/22 11/02/22 11/02/22 15:45 06:26 06:26 WBC 10.78 RBC 4.52 L Hgb 14.2 Hct 41.6 L MCV 92.0 MCH 31.4 MCHC 34.1 RDW Std Deviation 44.3 RDW Coeff of [place] 13.2 Plt Count 216 MPV 9.8 Sodium 138 Potassium 3.8 Chloride 105 Carbon Dioxide 26 Anion Gap 7 BUN 10 Creatinine 1.48 H Est Cr Clr Drug Dosing 84.8 Est GFR ( Amer) 77.8 Est GFR (Non-Af Amer) 67.2 BUN/Creatinine Ratio 6.8 L Glucose 89 Calcium 8.6 Total Protein (PEP) Albumin (PEP) Odheu-1-Ztyehrdcr Ezksb-0-Tvkbuvkxy Arlj-2-Jxnjnwux Lysw-8-Gzyyyiil Gamma Globulins Monoclonal Peak 3 Ser Monoclonl Protein Ser Monoclonal Prot 2 PEP Interpretation Urine Color Urine Appearance Urine pH Ur Specific [place] Urine Protein Urine Glucose (UA) Urine Ketones Urine Blood Urine Nitrite Urine Bilirubin Urine Urobilinogen Ur Leukocyte Esterase Ur Random Creatinine 55.2 U Random Total Protein 13.4 H Ur Creatinine mg/dL Protein/Creatinin Ratio 0.2 Urine Albumin (%) U Oscxi-1-Piwlqruv (%) U Jjniw-5-Tdhjmswy (%) U Beta Globulin (%) U Gamma Globulin (%) U Abnormal Prot Band 1 U Abnormal Prot Band 2 U Abnormal Prot Band 3 Urine PEP Interpret PG Care Time/CCT Total # of Minutes Spent Total Time Spent with Patient: Total time spent is greater than 50% in coordination of care (as documented) at patient's floor/unit and/or counseling patient: Coding Level of Care Code 32988 SUB INP/OBS CARE 3/50MIN Diagnoses Acute kidney injury N17.9 Hematuria R31.9 Proteinuria R80.9
--- NOTE | 2022-11-02 18:09 | Billing Data ---
Date of Service November 02, 2022 Coding Level of Care Code 96430 IN/OBS DISCH 30 MIN/LESS
== END 2022-11-02 13:25 | disposition home or self-care (01) | DRG 871 ==
LOC: ED 19:04 → SUATTDRO 10-27 02:48 → 3E 10-27 02:48